=== PATIENT | female | born 1975 | race Caucasian/White ===

== ENCOUNTER → 2020-06-14 08:51 | Outpatient (BNVA) | payer OTHER, SELFPAY | PROVIDERS: PCP Student in an Organized Health Care Education/Training Program; Visit Provider Physician Assistant | DX: Z76.89 Persons encountering health services in other specified circumstances (principal) ==

== ENCOUNTER 2020-06-15 08:06 | Outpatient (REF) | payer OTHER, MEDICAID, SELFPAY ==
--- NOTE | 2020-06-15 | CT_ITS ---
EXAMINATION: CT CHEST WITHOUT CONTRAST CLINICAL INFORMATION: Follow-up pulmonary nodule COMPARISON: Previous chest CT scan November 2019 TECHNIQUE: Multidetector volumetric CT imaging of the chest was done. Axial MIP volume rendering provided. Sagittal and coronal reformatted images were obtained. This CT examination was performed using dose optimization techniques as appropriate, variously including the following: *Automated exposure control *Adjustment of mA and/or kV according to patient size (this includes techniques or standardized protocols for targeted exams where dose is matched to indication/reason for exam; i.e. extremities or head) *Use of iterative reconstruction technique DLP: 181 mGy-cm FINDINGS: LUNGS: There is a 3 mm right middle lobe nodule axial image 323 series 7 that is stable. The lungs are otherwise clear. There is an azygos lobe. MEDIASTINUM: The mediastinum is normal. PLEURA: There is no pleural effusion. No pleural mass or thickening. AXILLA: No lymphadenopathy. UPPER ABDOMEN: There is a small peripheral calcification in the lateral segment of the left lobe of the liver that is stable. Images through the upper abdomen are otherwise unremarkable. OSSEOUS STRUCTURES: Unremarkable. IMPRESSION: Stable 3 mm right middle lobe nodule.
== END 2020-06-15 08:07 | disposition home or self-care (01) ==
LOC: HO.CT 08:06
PROVIDERS: PCP Student in an Organized Health Care Education/Training Program; Visit Provider Internal Medicine Pulmonary Disease
DX: R91.1 Solitary pulmonary nodule (principal)
CPT/HCPCS: 71250

== ENCOUNTER 2020-06-29 09:58 | Outpatient (REF) | payer OTHER, SELFPAY ==
--- NOTE | 2020-06-29 10:01 | XR_ITS ---
EXAMINATION: XR ANKLE, RIGHT CLINICAL INFORMATION: Pain right ankle and joints of right foot. COMPARISON: None. TECHNIQUE: AP, lateral, and mortise views of the right ankle. FINDINGS: There is no fracture or dislocation. Bony mineralization is normal. The ankle joint shows no narrowing or erosive change. The talar dome shows no osteochondral lesion. The retrocalcaneal recess is preserved. No significant calcaneal spurring. There is small spur dorsum talonavicular region and distal anterior tibia, similar to prior studies. XR/XR ankle RT min 3V IMPRESSION: 1. Mild dorsal spurring talonavicular region, similar to prior study 06/01/2020. 2. Unremarkable ankle joint. No narrowing or erosive change.
== END 2020-06-29 09:59 | disposition home or self-care (01) ==
LOC: HO.XRAY 09:58
PROVIDERS: PCP Student in an Organized Health Care Education/Training Program; Referring Provider Student in an Organized Health Care Education/Training Program; Visit Provider Physician Assistant
DX: S90.01XA Contusion of right ankle, initial encounter (principal); V89.2XXA Person injured in unspecified motor-vehicle accident, traffic, initial encounter; Y93.9 Activity, unspecified; Y92.410 Unspecified street and highway as the place of occurrence of the external cause; Y99.8 Other external cause status; Z91.040 Latex allergy status
CPT/HCPCS: 73610; 99212

== ENCOUNTER → 2020-07-07 09:20 | Outpatient (BNVA) | payer OTHER, SELFPAY | PROVIDERS: PCP Student in an Organized Health Care Education/Training Program; Visit Provider Physician Assistant Medical | DX: M54.2 Cervicalgia (principal); M25.571 Pain in right ankle and joints of right foot; R51.9 Headache, unspecified | CPT/HCPCS: 99214 ==

== ENCOUNTER → 2020-07-12 14:28 | Outpatient (BNVA) | payer MEDICAID, SELFPAY | PROVIDERS: PCP Student in an Organized Health Care Education/Training Program; Referring Provider Student in an Organized Health Care Education/Training Program; Visit Provider Nurse Practitioner | DX: K21.9 Gastro-esophageal reflux disease without esophagitis (principal); R13.12 Dysphagia, oropharyngeal phase; K58.2 Mixed irritable bowel syndrome; K64.9 Unspecified hemorrhoids; Z87.891 Personal history of nicotine dependence; Z91.040 Latex allergy status; Z79.899 Other long term (current) drug therapy | CPT/HCPCS: 99212 ==

== ENCOUNTER → 2020-07-27 09:26 | Outpatient (BNVA) | payer OTHER, SELFPAY | PROVIDERS: PCP Student in an Organized Health Care Education/Training Program; Visit Provider Physician Assistant Medical | DX: S16.1XXD Strain of muscle, fascia and tendon at neck level, subsequent encounter (principal); V89.2XXD Person injured in unspecified motor-vehicle accident, traffic, subsequent encounter; R51.9 Headache, unspecified | CPT/HCPCS: 99213 ==

== ENCOUNTER 2020-08-23 09:15 | Outpatient (REF) | payer MEDICAID, SELFPAY | END 2020-08-23 09:16 | disposition home or self-care (01) | LOC: HO.LAB 09:15 | PROVIDERS: PCP Student in an Organized Health Care Education/Training Program; Visit Provider Internal Medicine | DX: Z20.828 Contact with and (suspected) exposure to other viral communicable diseases (principal) | CPT/HCPCS: C9803; U0003 ==

== ENCOUNTER → 2020-09-07 10:57 | Outpatient (BNVA) | payer OTHER, SELFPAY | PROVIDERS: PCP Student in an Organized Health Care Education/Training Program; Visit Provider Physician Assistant Medical | DX: S16.1XXD Strain of muscle, fascia and tendon at neck level, subsequent encounter (principal); S46.819D Strain of other muscles, fascia and tendons at shoulder and upper arm level, unspecified arm, subsequent encounter; S93.401D Sprain of unspecified ligament of right ankle, subsequent encounter; V89.2XXD Person injured in unspecified motor-vehicle accident, traffic, subsequent encounter; F07.81 Postconcussional syndrome | CPT/HCPCS: 99213 ==

== ENCOUNTER → 2020-10-06 08:59 | Outpatient (BNVA) | payer OTHER, SELFPAY | PROVIDERS: PCP Student in an Organized Health Care Education/Training Program; Visit Provider Physician Assistant Medical | DX: F07.81 Postconcussional syndrome (principal); G43.909 Migraine, unspecified, not intractable, without status migrainosus; S99.911S Unspecified injury of right ankle, sequela; S16.1XXS Strain of muscle, fascia and tendon at neck level, sequela; V89.2XXS Person injured in unspecified motor-vehicle accident, traffic, sequela | CPT/HCPCS: 99214 ==

== ENCOUNTER 2020-10-19 08:00 | Outpatient (RCR) | payer MEDICAID, SELFPAY ==
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
--- NOTE | 2020-11-20 13:52 | MHC.PT.DC ---
[facility] [place] Office [place] Office [place] Office [address] Ankita Francois [address] [phone] F: [phone] F: [phone] F: [phone] F: [phone] Physical Therapy Discharge Report Diagnosis: cervical strain Date of Surgery: None Date of Evaluation: 09/13/20 Date of Discharge: 11/06/20 Treatments to Date: 7 Cancellations to Date: No Shows to Date: Discharge Status: Patient Elected to Stop Discharge Summary: She had to stop PT due to fracture ankle. Was making progress before fracture. Electronically signed by: Efraín Calvin PT Please sign and return to therapist. Thank you for your referral.
== END 2020-11-20 13:57 | disposition home or self-care (01) ==
LOC: HO.PTCHIC 08:00
PROVIDERS: PCP Student in an Organized Health Care Education/Training Program; Visit Provider Internal Medicine
DX: S16.1XXD Strain of muscle, fascia and tendon at neck level, subsequent encounter (principal)
CPT/HCPCS: 97014; 97110; 97140; 97162

== ENCOUNTER → 2020-10-19 13:22 | Outpatient (BNVA) | payer OTHER, SELFPAY | PROVIDERS: PCP Student in an Organized Health Care Education/Training Program; Visit Provider Physician Assistant Medical | DX: S16.1XXD Strain of muscle, fascia and tendon at neck level, subsequent encounter (principal); X58.XXXD Exposure to other specified factors, subsequent encounter; R60.9 Edema, unspecified; F07.81 Postconcussional syndrome | CPT/HCPCS: 99213 ==

== ENCOUNTER 2020-10-23 23:09 | Emergency (ER) | payer MEDICAID, SELFPAY ==
--- NOTE | ~2020-10-23 | XR_ITS ---
EXAMINATION: RIGHT KNEE, RIGHT ANKLE CLINICAL INFORMATION: Pain and deformity ankle with swelling and ecchymosis knee COMPARISON: Right ankle 06/29/2020 TECHNIQUE: 4 views right knee, 3 views right ankle FINDINGS: Knee: No bone joint or soft tissue abnormality is seen. Ankle: There is a minimally displaced spiral fracture involving the lateral malleolus with marked associated soft tissue swelling. No definite other fractures are seen. XR/XR ankle RT min 3V IMPRESSION: Lateral malleolus fracture.
--- NOTE | ~2020-10-23 | XR_ITS ---
EXAMINATION: RIGHT KNEE, RIGHT ANKLE CLINICAL INFORMATION: Pain and deformity ankle with swelling and ecchymosis knee COMPARISON: Right ankle 06/29/2020 TECHNIQUE: 4 views right knee, 3 views right ankle FINDINGS: Knee: No bone joint or soft tissue abnormality is seen. Ankle: There is a minimally displaced spiral fracture involving the lateral malleolus with marked associated soft tissue swelling. No definite other fractures are seen. XR/XR knee RT 3V IMPRESSION: Lateral malleolus fracture.
[2020-10-23 23:18] VITALS: BP 132/91; BP 156/88; PULSE 100; PULSE 89; RESP 16; TEMP 36.8; O2SAT 100; O2SAT 98; BMI 39.9
[2020-10-24] MEDS: Acetaminophen 325 MG TABLET 975 MG PO (00:57)
[2020-10-24] MEDS: Ketorolac Tromethamine 15 MG/ML VIAL IM (00:58)
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
== END 2020-10-24 01:38 | disposition home or self-care (01) ==
PROVIDERS: Emergency Provider Student in an Organized Health Care Education/Training Program; PCP Student in an Organized Health Care Education/Training Program
DX: S82.61XA Displaced fracture of lateral malleolus of right fibula, initial encounter for closed fracture (principal); W00.0XXA Fall on same level due to ice and snow, initial encounter; Y93.89 Activity, other specified; Y92.014 Private driveway to single-family (private) house as the place of occurrence of the external cause; Y99.9 Unspecified external cause status
CPT/HCPCS: 73562; 73610; 96372; 99283; 99284; J1885

== ENCOUNTER → 2020-10-25 10:31 | Outpatient (BNVA) | payer MEDICAID, SELFPAY | PROVIDERS: Visit Provider Physician Assistant | DX: S82.63XA Displaced fracture of lateral malleolus of unspecified fibula, initial encounter for closed fracture (principal) | CPT/HCPCS: 99212 ==

== ENCOUNTER → 2020-11-02 15:19 | Outpatient (BNVA) | payer OTHER, SELFPAY | PROVIDERS: Visit Provider Physician Assistant Medical | DX: F07.81 Postconcussional syndrome (principal); G43.909 Migraine, unspecified, not intractable, without status migrainosus; S16.1XXD Strain of muscle, fascia and tendon at neck level, subsequent encounter; S82.891D Other fracture of right lower leg, subsequent encounter for closed fracture with routine healing; V89.2XXD Person injured in unspecified motor-vehicle accident, traffic, subsequent encounter | CPT/HCPCS: 99213 ==

== ENCOUNTER 2020-11-22 08:38 | Outpatient (REF) | payer MEDICAID, SELFPAY ==
--- NOTE | ~2020-11-22 | XR_ITS ---
EXAMINATION: XR ANKLE, RIGHT CLINICAL INFORMATION: Lateral malleolar fracture COMPARISON: Previous x-ray October 2020 TECHNIQUE: AP, lateral, and mortise views of the right ankle. FINDINGS: The oblique fracture of the lateral malleolus appears unchanged. Fracture line is still seen. No other fracture is seen. The ankle mortise is normal. Soft tissues are normal. There are small calcaneal spurs. XR/XR ankle RT min 3V IMPRESSION: No change in left lateral malleolar fracture from 10/24/2020.
== END 2020-11-22 08:39 | disposition home or self-care (01) ==
LOC: HO.HOSX 08:38
PROVIDERS: Visit Provider Physician Assistant
DX: S82.61XD Displaced fracture of lateral malleolus of right fibula, subsequent encounter for closed fracture with routine healing (principal)
CPT/HCPCS: 73610; 99212

== ENCOUNTER → 2020-12-08 13:52 | Outpatient (BNVA) | payer OTHER, SELFPAY | PROVIDERS: PCP Student in an Organized Health Care Education/Training Program; Visit Provider Physician Assistant Medical | DX: F07.81 Postconcussional syndrome (principal); G43.809 Other migraine, not intractable, without status migrainosus; S16.1XXD Strain of muscle, fascia and tendon at neck level, subsequent encounter; V89.2XXD Person injured in unspecified motor-vehicle accident, traffic, subsequent encounter; S99.911D Unspecified injury of right ankle, subsequent encounter; X58.XXXD Exposure to other specified factors, subsequent encounter | CPT/HCPCS: 99213 ==

== ENCOUNTER → 2020-12-18 13:40 | Outpatient (BNVA) | payer MEDICAID, SELFPAY | PROVIDERS: PCP Student in an Organized Health Care Education/Training Program; Visit Provider Anesthesiology | DX: M47.812 Spondylosis without myelopathy or radiculopathy, cervical region (principal) | CPT/HCPCS: 99202 ==

== ENCOUNTER → 2020-12-20 16:16 | Outpatient (BNVA) | payer OTHER, SELFPAY | PROVIDERS: PCP Student in an Organized Health Care Education/Training Program; Visit Provider Physician Assistant Medical | DX: M47.812 Spondylosis without myelopathy or radiculopathy, cervical region (principal) | CPT/HCPCS: 99213 ==

== ENCOUNTER → 2021-01-04 14:48 | Outpatient (BNVA) | payer OTHER, SELFPAY | PROVIDERS: PCP Student in an Organized Health Care Education/Training Program; Visit Provider Physician Assistant Medical | DX: F07.81 Postconcussional syndrome (principal); H81.10 Benign paroxysmal vertigo, unspecified ear; G43.909 Migraine, unspecified, not intractable, without status migrainosus | CPT/HCPCS: 99213 ==

== ENCOUNTER → 2021-01-08 08:47 | Outpatient (BNVA) | payer OTHER, SELFPAY | PROVIDERS: PCP Student in an Organized Health Care Education/Training Program; Visit Provider Anesthesiology ==

== ENCOUNTER → 2021-01-11 13:49 | Outpatient (BNVA) | payer OTHER, SELFPAY | PROVIDERS: PCP Student in an Organized Health Care Education/Training Program; Visit Provider Nurse Practitioner ==

== ENCOUNTER → 2021-01-17 14:00 | Outpatient (BNVA) | payer MEDICAID, SELFPAY | PROVIDERS: PCP Student in an Organized Health Care Education/Training Program; Visit Provider Physician Assistant Medical | DX: F07.81 Postconcussional syndrome (principal); H81.10 Benign paroxysmal vertigo, unspecified ear; G43.809 Other migraine, not intractable, without status migrainosus; M50.30 Other cervical disc degeneration, unspecified cervical region | CPT/HCPCS: 99213 ==

== ENCOUNTER → 2021-01-19 14:05 | Outpatient (BNVA) | payer MEDICAID, SELFPAY | PROVIDERS: PCP Student in an Organized Health Care Education/Training Program; Visit Provider Physician Assistant | DX: M25.571 Pain in right ankle and joints of right foot (principal) | CPT/HCPCS: 99212 ==

== ENCOUNTER 2021-01-30 06:28 | Outpatient (REF) | payer OTHER, SELFPAY ==
--- NOTE | ~2021-01-30 | FL_ITS ---
EXAMINATION: XR FLUOROSCOPY WITH IMAGES CLINICAL INFORMATION: Spondylosis without myelopathy or radiculopathy COMPARISON: None. TECHNIQUE: Fluoroscopy performed by Camila Hari NP. Fluoroscopy time: 0.5 minutes DAP: 3.3 Gycm2 FINDINGS: Needle placement and contrast injection adjacent to the bilateral lateral cervical spine at C3-C4, C4-C5 and C5-C6. FL/FL guidance in treatment room IMPRESSION: Fluoroscopy guidance for cervical spine injection
== END 2021-01-30 06:29 | disposition home or self-care (01) ==
LOC: HO.RADIR 06:28
PROVIDERS: Visit Provider Anesthesiology
DX: M47.812 Spondylosis without myelopathy or radiculopathy, cervical region (principal)
CPT/HCPCS: 64490; 64491; J1100; J3300; Q9967

== ENCOUNTER 2021-02-01 10:00 | Outpatient (RCR) | payer MEDICAID, SELFPAY ==
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
--- NOTE | 2021-02-01 10:51 | MHC.PT.DC ---
[facility] [place] Office [place] Office [address] Ankita Francois 140 [facility] [phone] F: [phone] F: [phone] F: [phone] F: [phone] Physical Therapy Discharge Report Diagnosis: R fibula fracture Date of Surgery: n/a Date of Evaluation: 11/29/20 Date of Discharge: 02/01/21 Treatments to Date: 19 Cancellations to Date: 0 No Shows to Date: 0 Discharge Status: Improved Function Independent with HEP Discharge Summary: Reports everything feels better such as walking, standing, and stairs. She still gets pain but she can move better. Noted improved gait pattern with R forefoot valgus. Ankle AROM WFL with mildly limited dorsiflexion and strength WNL. LEFS 46/80. Reviewed HEP and pt appropriate for d/c. Electronically signed by: Marcella Mcghee PT Please sign and return to therapist. Thank you for your referral.
== END 2021-02-01 10:52 | disposition home or self-care (01) ==
LOC: HO.PTCHIC 10:00
PROVIDERS: PCP Student in an Organized Health Care Education/Training Program; Visit Provider Physician Assistant
DX: S82.63XA Displaced fracture of lateral malleolus of unspecified fibula, initial encounter for closed fracture (principal)
CPT/HCPCS: 97014; 97110; 97112; 97140; 97161; 97530

== ENCOUNTER → 2021-02-22 15:05 | Outpatient (BNVA) | payer OTHER, SELFPAY | PROVIDERS: PCP Student in an Organized Health Care Education/Training Program; Visit Provider Physician Assistant Medical | DX: F07.81 Postconcussional syndrome (principal); H81.10 Benign paroxysmal vertigo, unspecified ear; S16.1XXD Strain of muscle, fascia and tendon at neck level, subsequent encounter; X58.XXXD Exposure to other specified factors, subsequent encounter | CPT/HCPCS: 99213 ==

== ENCOUNTER 2021-03-01 11:42 | Outpatient (REF) | payer MEDICAID, SELFPAY ==
[2021-03-01 14:39] LABS: Anion Gap 13 (12-20); Blood Urea Nitrogen 22 mg/dL (9-16); Calcium 9.9 mg/dL (8.4-10.2); Carbon Dioxide 29 mmol/L (22-29); Chloride 101 mmol/L (96-108); Cholesterol 203 mg/dL; Estimated Glomerular Filt Rate > 60; Glucose Random 69 mg/dL (60-115); HDL Cholesterol 72 mg/dL; LDL Cholesterol Calculated 117 mg/dl; Potassium 4.1 mmol/L (3.3-5.1); Sodium 139 mmol/L (135-145); Triglycerides 73 mg/dL
== END 2021-03-01 11:43 | disposition home or self-care (01) ==
LOC: HO.LAB 11:42
PROVIDERS: PCP Student in an Organized Health Care Education/Training Program; Referring Provider Student in an Organized Health Care Education/Training Program; Visit Provider Internal Medicine
DX: I10 Essential (primary) hypertension (principal)
CPT/HCPCS: 36415; 80048; 80061

== ENCOUNTER → 2021-03-07 10:52 | Outpatient (BNVA) | payer MEDICAID, SELFPAY | PROVIDERS: PCP Student in an Organized Health Care Education/Training Program; Visit Provider Anesthesiology ==

== ENCOUNTER → 2021-03-22 15:05 | Outpatient (BNVA) | payer OTHER, SELFPAY | PROVIDERS: PCP Student in an Organized Health Care Education/Training Program; Visit Provider Physician Assistant Medical | DX: S06.9X0A Unspecified intracranial injury without loss of consciousness, initial encounter (principal); V89.2XXA Person injured in unspecified motor-vehicle accident, traffic, initial encounter; F07.81 Postconcussional syndrome; M54.2 Cervicalgia; H81.10 Benign paroxysmal vertigo, unspecified ear | CPT/HCPCS: 99213 ==

== ENCOUNTER 2021-04-12 14:00 | Outpatient (RCR) | payer MEDICAID, SELFPAY ==
[2021-02-20 13:12] VITALS: BP 130/76
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
--- NOTE | 2021-05-04 12:54 | MHC.PT.DC ---
[facility] [place] Office [place] Office [address] Ankita Francois 140 [facility] [phone] F: [phone] F: [phone] F: [phone] F: [phone] Physical Therapy Discharge Report Diagnosis: cervical strain Date of Surgery: Date of Evaluation: 02/20/21 Date of Discharge: 05/04/21 Treatments to Date: 7 Cancellations to Date: 0 No Shows to Date: 0 Discharge Status: Improved Function Independent with HEP Discharge Summary: Dc to I HEP. Reports improved motion and function. Electronically signed by: Marcella Mcghee PT Please sign and return to therapist. Thank you for your referral.
== END 2021-05-04 12:54 | disposition home or self-care (01) ==
LOC: HO.PTCHIC 14:00
PROVIDERS: PCP Student in an Organized Health Care Education/Training Program; Visit Provider Internal Medicine
DX: S16.1XXA Strain of muscle, fascia and tendon at neck level, initial encounter (principal)
CPT/HCPCS: 97110; 97112; 97140; 97162

== ENCOUNTER → 2021-04-26 09:24 | Outpatient (BNVA) | payer OTHER, SELFPAY | PROVIDERS: PCP Student in an Organized Health Care Education/Training Program; Visit Provider Physician Assistant Medical | DX: S06.9X0D Unspecified intracranial injury without loss of consciousness, subsequent encounter (principal); V89.2XXD Person injured in unspecified motor-vehicle accident, traffic, subsequent encounter; G43.909 Migraine, unspecified, not intractable, without status migrainosus; F07.81 Postconcussional syndrome; H81.10 Benign paroxysmal vertigo, unspecified ear; M54.2 Cervicalgia | CPT/HCPCS: 99213 ==

== ENCOUNTER 2021-05-17 14:00 | Outpatient (RCR) | payer OTHER, MEDICAID, SELFPAY ==
[2021-03-19 12:52] VITALS: BP 150/98; PULSE 77; O2SAT 99
--- NOTE | 2021-03-19 15:21 | MHC.PT.EP ---
[facility] [place] Office [place] Office [address] Ani Francois [address] [phone] F: [phone] F: [phone] F: [phone] F: [phone] Physical Therapy Plan of Care Date of Evaluation: Date of Surgery: Diagnosis: This is a 45 yo female presenting to skilled PT with a script for vertigo Assessment: Examination shows normal oculomotor tests except for vertical saccades, (-) VBI B, decreased cervical AROM. She was (-) for BPPV with hamida-hallpike and roll tests. Patient scored normally on static EO and EC balance tests and only had dizziness with head turns in ambulation during DGI. Plan is to trial therapy for vestibular hypofunction and post concussive symptoms. She would benefit from PT 2x/wk for 4wks to address impairments, implement HEP and optimize functional mobility. Frequency and Duration: The patient will be seen 2x/wk for 4wks Short Term Goals: Button Inspector Goals: I in HEP Report no falls for 3 weeks due to dizziness Improve symptoms by at least 75% Demo good scores on all balance tests No nystagmus or dizziness with all testing positions Treatment Plan: Modalities to reduce pain, spasms and effusion. Manual therapy to restore motion and function. Therapeutic exercise to improve strength and flexibility. Neuromuscular re-education for posture and balance. Therapeutic activities to return to functional activities of daily living. Electronically signed by: Sophia Ferguson PT Please sign and return to therapist. Thank you for your referral.
--- NOTE | 2021-05-17 15:48 | MHC.PT.DC ---
[facility] [place] Office [place] Office [address] Ankita Francois [address] [phone] F: [phone] F: [phone] F: [phone] F: [phone] Physical Therapy Discharge Report Diagnosis: This is a 45 yo female presenting to skilled PT with a script for vertigo Date of Surgery: Date of Evaluation: 03/19/21 Date of Discharge: 05/17/21 Treatments to Date: 8 Cancellations to Date: 0 No Shows to Date: 0 Discharge Status: Improved Function Independent with HEP Discharge Summary: 05/17: Patients symptoms continue to come and go. She is negative in all canals for vertigo. She demos good balance with tests demonstrating impaired balance during DGI with head turns. She has been educated on HEP for memory/concussion, cervical ther-ex, HARDIN symptoms and vestibular impairments. At this time she has plateaued in improvements with vestibular and concussion tx. Refer to for further assessment. Electronically signed by: Sophia Ferguson PT Please sign and return to therapist. Thank you for your referral.
== END 2021-05-17 15:50 | disposition home or self-care (01) ==
LOC: HO.PTCHIC 14:00
PROVIDERS: Visit Provider Internal Medicine
DX: R42 Dizziness and giddiness (principal); S06.0X9D Concussion with loss of consciousness of unspecified duration, subsequent encounter; V89.2XXD Person injured in unspecified motor-vehicle accident, traffic, subsequent encounter
CPT/HCPCS: 95992; 97110; 97112; 97161; 97530

== ENCOUNTER → 2021-05-18 11:38 | Outpatient (BNVA) | payer OTHER, SELFPAY | PROVIDERS: PCP Student in an Organized Health Care Education/Training Program; Visit Provider Physician Assistant Medical | DX: F07.81 Postconcussional syndrome (principal); G43.909 Migraine, unspecified, not intractable, without status migrainosus; H81.10 Benign paroxysmal vertigo, unspecified ear; M54.2 Cervicalgia | CPT/HCPCS: 99213 ==

== ENCOUNTER → 2021-06-12 09:17 | Outpatient (BNVA) | payer OTHER, SELFPAY | PROVIDERS: PCP Student in an Organized Health Care Education/Training Program; Visit Provider Physician Assistant Medical | DX: F07.81 Postconcussional syndrome (principal); G43.909 Migraine, unspecified, not intractable, without status migrainosus; R42 Dizziness and giddiness; M54.2 Cervicalgia | CPT/HCPCS: 99213 ==

== ENCOUNTER 2021-06-27 12:48 | Outpatient (REF) | payer MEDICAID, SELFPAY ==
[2021-06-28 08:41] LABS: Lyme Abs Screen <0.90 index
== END 2021-06-27 12:49 | disposition home or self-care (01) ==
LOC: HO.LAB 12:48
PROVIDERS: Visit Provider Psychiatry & Neurology Neurology
DX: G43.909 Migraine, unspecified, not intractable, without status migrainosus (principal)
CPT/HCPCS: 36415; 86617; 86618

== ENCOUNTER → 2021-07-03 09:06 | Outpatient (BNVA) | payer OTHER, SELFPAY | PROVIDERS: PCP Student in an Organized Health Care Education/Training Program; Visit Provider Physician Assistant Medical | DX: F07.81 Postconcussional syndrome (principal); G43.909 Migraine, unspecified, not intractable, without status migrainosus; R42 Dizziness and giddiness; M54.2 Cervicalgia | CPT/HCPCS: 99213 ==

== ENCOUNTER → 2021-07-16 15:44 | Outpatient (BNVA) | payer OTHER, SELFPAY | PROVIDERS: PCP Student in an Organized Health Care Education/Training Program; Visit Provider Nurse Practitioner ==

== ENCOUNTER → 2021-08-07 14:58 | Outpatient (BNVA) | payer OTHER, SELFPAY | PROVIDERS: PCP Student in an Organized Health Care Education/Training Program; Visit Provider Physician Assistant Medical | DX: F07.81 Postconcussional syndrome (principal) | CPT/HCPCS: 99213 ==

== ENCOUNTER → 2021-08-23 14:47 | Outpatient (BNVA) | payer OTHER, SELFPAY | PROVIDERS: PCP Student in an Organized Health Care Education/Training Program; Visit Provider Physician Assistant Medical | DX: F07.81 Postconcussional syndrome (principal) | CPT/HCPCS: 72072 ==

== ENCOUNTER → 2021-09-04 15:27 | Outpatient (BNVA) | payer OTHER, SELFPAY | PROVIDERS: PCP Student in an Organized Health Care Education/Training Program; Visit Provider Physician Assistant Medical | DX: F07.81 Postconcussional syndrome (principal) | CPT/HCPCS: 99213 ==

== ENCOUNTER → 2021-10-03 15:44 | Outpatient (BNVA) | payer OTHER, SELFPAY | PROVIDERS: PCP Student in an Organized Health Care Education/Training Program; Visit Provider Physician Assistant Medical | DX: M54.2 Cervicalgia (principal) | CPT/HCPCS: 99213 ==

== ENCOUNTER 2021-10-31 14:29 | Outpatient (REF) | payer MEDICAID, SELFPAY ==
[2021-10-31 16:21] LABS: Free T4 (Free Thyroxine) 0.99 ng/dL (0.71-1.85); Thyroid Stimulating Hormone 0.64 uIU/mL (0.32-4.0)
[2021-11-01 06:15] LABS: Follicle Stimulating Hormone 52.5 mIU/mL
[2021-11-08 23:01] LABS: Estradiol Free 0.19 pg/mL; Estradiol, Ultrasensitive 10 pg/mL
== END 2021-10-31 14:30 | disposition home or self-care (01) ==
LOC: HO.LAB 14:29
PROVIDERS: PCP Student in an Organized Health Care Education/Training Program; Visit Provider Obstetrics & Gynecology
DX: N95.1 Menopausal and female climacteric states (principal)
CPT/HCPCS: 36415; 82670; 82681; 83001; 84439; 84443

== ENCOUNTER → 2021-12-03 15:13 | Outpatient (BNVA) | payer OTHER, SELFPAY | PROVIDERS: PCP Student in an Organized Health Care Education/Training Program; Visit Provider Physician Assistant Medical | DX: M50.30 Other cervical disc degeneration, unspecified cervical region (principal); M48.02 Spinal stenosis, cervical region; G43.909 Migraine, unspecified, not intractable, without status migrainosus; R42 Dizziness and giddiness | CPT/HCPCS: 99214 ==

== ENCOUNTER → 2022-01-01 13:18 | Outpatient (BNVA) | payer OTHER, SELFPAY | PROVIDERS: PCP Student in an Organized Health Care Education/Training Program; Visit Provider Physician Assistant Medical | DX: M50.122 Cervical disc disorder at C5-C6 level with radiculopathy (principal); M99.51 Intervertebral disc stenosis of neural canal of cervical region; M51.14 Intervertebral disc disorders with radiculopathy, thoracic region; M50.322 Other cervical disc degeneration at C5-C6 level; G43.909 Migraine, unspecified, not intractable, without status migrainosus; R42 Dizziness and giddiness | CPT/HCPCS: 99213 ==

== ENCOUNTER → 2022-01-02 10:16 | Outpatient (BNVA) | payer MEDICAID, SELFPAY | PROVIDERS: PCP Student in an Organized Health Care Education/Training Program; Visit Provider Internal Medicine Pulmonary Disease | DX: J45.909 Unspecified asthma, uncomplicated (principal); R91.8 Other nonspecific abnormal finding of lung field | CPT/HCPCS: 99212 ==

== ENCOUNTER 2022-01-10 07:39 | Outpatient (REF) | payer MEDICAID, SELFPAY ==
--- NOTE | ~2022-01-10 | CT_ITS ---
EXAMINATION: CT chest wo con. CLINICAL INFORMATION: Reason for Exam R91.8 - Other nonspecific abnormal finding of lung field COMPARISON: Prior CT scan June 15, 2022 TECHNIQUE: Noncontrast CT scan low-dose. This CT examination was performed using dose optimization techniques as appropriate, variously including the following: *Automated exposure control *Adjustment of mA and/or kV according to patient size (this includes techniques or standardized protocols for targeted exams where dose is matched to indication/reason for exam; i.e. extremities or head) *Use of iterative reconstruction technique CONTRAST: Noncontrasted study. DLP: 198 mGy-cm FINDINGS: CHIEF PETROLEUM ENGINEER: LINES/TUBES: Marketing Recruiter reviewed, no lines. LUNGS: Lung parenchyma: No evidence of significant interstitial disease. Lung nodules/masses: No suspicious lung mass, no spiculated suspicious lung nodules. There are few scattered tiny subcentimeter lung densities nonspecific measuring to 3 mm or less. AIRWAYS: Airways are clear, no intratracheal mass or lesion. PLEURA: No pleural effusion or pneumothorax. MEDIASTINUM AND RUTH: No mediastinal, hilar or axillary lymphadenopathy. There is no CT evidence of mediastinal mass or hernia found. VESSELS: HEART AND PERICARDIUM: Thoracic aorta is normal in size. Heart is normal in size. No pericardial effusion. Pulmonary arteries are normal in size. LOWER NECK, AXILLA: The visualized thyroid gland is unremarkable. No axillary mass or adenopathy. VISUALIZED ABDOMEN: Unremarkable CHEST WALL AND BONES: No chest wall mass. The visualized bony thorax is within normal limits. CT/CT chest wo con IMPRESSION: 1. No lung mass or suspicious spiculated nodules, no CT evidence of lung neoplasm, there are few scattered tiny nonspecific lung densities measuring up to 3 mm or less. 2. No lymphadenopathy.
== END 2022-01-10 07:40 | disposition home or self-care (01) ==
LOC: HO.CT 07:39
PROVIDERS: PCP Student in an Organized Health Care Education/Training Program; Visit Provider Internal Medicine Pulmonary Disease
DX: R91.8 Other nonspecific abnormal finding of lung field (principal)
CPT/HCPCS: 71250

== ENCOUNTER → 2022-01-22 15:01 | Outpatient (BNVA) | payer OTHER, SELFPAY | PROVIDERS: PCP Student in an Organized Health Care Education/Training Program; Visit Provider Physician Assistant Medical | DX: M50.122 Cervical disc disorder at C5-C6 level with radiculopathy (principal); M99.51 Intervertebral disc stenosis of neural canal of cervical region | CPT/HCPCS: 99214 ==

== ENCOUNTER → 2022-01-29 14:13 | Outpatient (BNVA) | payer MEDICAID, SELFPAY | PROVIDERS: PCP Student in an Organized Health Care Education/Training Program; Visit Provider Nurse Practitioner | DX: K21.9 Gastro-esophageal reflux disease without esophagitis (principal); R13.12 Dysphagia, oropharyngeal phase; K58.2 Mixed irritable bowel syndrome | CPT/HCPCS: 99212 ==

== ENCOUNTER 2022-03-12 09:06 | Outpatient (REF) | payer MEDICAID, SELFPAY ==
--- NOTE | ~2022-03-12 | FL_ITS ---
EXAMINATION: FL BARIUM SWALLOW CLINICAL INFORMATION: Dysphagia COMPARISON: None TECHNIQUE: Barium swallow examination is performed using fluoroscopic evaluation in addition to multiple fluoroscopic spot views. The patient is imaged both upright and prone and using both thick and thin sulfate along with effervescent granules. Patient was also administered barium tablet. Fluoroscopy time: 0.7 minutes DAP: 7.5 Gycm2 Images: 38 FINDINGS: The swallowing mechanism is normal. No aspiration or penetration is seen. There is a small sliding-type hiatal hernia. There is no gastroesophageal reflux. No mass or stricture or evidence of esophagitis is seen. Barium tablet passed into the stomach. FL/FL barium swallow IMPRESSION: Small sliding-type hiatal hernia.
== END 2022-03-12 09:07 | disposition home or self-care (01) ==
LOC: HO.XRAY 09:06
PROVIDERS: PCP Student in an Organized Health Care Education/Training Program; Visit Provider Internal Medicine
DX: R13.10 Dysphagia, unspecified (principal)
CPT/HCPCS: 74220

== ENCOUNTER → 2022-03-13 14:30 | Outpatient (BNVA) | payer OTHER, SELFPAY | PROVIDERS: PCP Student in an Organized Health Care Education/Training Program; Visit Provider Physician Assistant Medical | DX: M50.322 Other cervical disc degeneration at C5-C6 level (principal) | CPT/HCPCS: 99214 ==

== ENCOUNTER → 2022-03-26 14:51 | Outpatient (BNVA) | payer MEDICAID, SELFPAY | PROVIDERS: PCP Student in an Organized Health Care Education/Training Program; Visit Provider Nurse Practitioner | DX: K21.9 Gastro-esophageal reflux disease without esophagitis (principal); K58.2 Mixed irritable bowel syndrome; R13.12 Dysphagia, oropharyngeal phase; N81.6 Rectocele | CPT/HCPCS: 99212 ==

== ENCOUNTER 2022-04-08 16:40 | Outpatient (RCR) | payer MEDICAID, SELFPAY ==
[2022-04-08 16:46] VITALS: BP 125/80; PULSE 72; O2SAT 98
== END 2022-05-10 10:43 | disposition home or self-care (01) ==
LOC: HO.PTCHIC 16:40
PROVIDERS: PCP Student in an Organized Health Care Education/Training Program; Visit Provider Student in an Organized Health Care Education/Training Program
DX: R42 Dizziness and giddiness (principal)
CPT/HCPCS: 97110; 97161; 97162

== ENCOUNTER → 2022-04-29 14:18 | Outpatient (BNVA) | payer OTHER, SELFPAY | PROVIDERS: PCP Student in an Organized Health Care Education/Training Program; Visit Provider Physician Assistant Medical | DX: M54.2 Cervicalgia (principal) | CPT/HCPCS: 99213 ==

== ENCOUNTER → 2022-07-01 14:57 | Outpatient (BNVA) | payer OTHER, SELFPAY | PROVIDERS: PCP Student in an Organized Health Care Education/Training Program; Visit Provider Physician Assistant Medical | DX: S13.4XXD Sprain of ligaments of cervical spine, subsequent encounter (principal); S29.012D Strain of muscle and tendon of back wall of thorax, subsequent encounter; V89.2XXD Person injured in unspecified motor-vehicle accident, traffic, subsequent encounter | CPT/HCPCS: 99213 ==

== ENCOUNTER → 2022-07-11 09:11 | Outpatient (BNVA) | payer MEDICAID, SELFPAY | PROVIDERS: PCP Student in an Organized Health Care Education/Training Program; Visit Provider Internal Medicine Pulmonary Disease | DX: J45.40 Moderate persistent asthma, uncomplicated (principal); R91.8 Other nonspecific abnormal finding of lung field | CPT/HCPCS: 99212 ==

== ENCOUNTER → 2022-08-12 14:33 | Outpatient (BNVA) | payer OTHER, SELFPAY | PROVIDERS: PCP Student in an Organized Health Care Education/Training Program; Visit Provider Physician Assistant Medical | DX: S16.1XXD Strain of muscle, fascia and tendon at neck level, subsequent encounter (principal); S29.012D Strain of muscle and tendon of back wall of thorax, subsequent encounter; V89.2XXD Person injured in unspecified motor-vehicle accident, traffic, subsequent encounter | CPT/HCPCS: 99213 ==

== ENCOUNTER → 2022-10-08 15:19 | Outpatient (BNVA) | payer MEDICAID, SELFPAY | PROVIDERS: PCP Student in an Organized Health Care Education/Training Program; Referring Provider Student in an Organized Health Care Education/Training Program; Visit Provider Nurse Practitioner | DX: K21.9 Gastro-esophageal reflux disease without esophagitis (principal); R13.12 Dysphagia, oropharyngeal phase; K58.2 Mixed irritable bowel syndrome; Z79.899 Other long term (current) drug therapy | CPT/HCPCS: 99212 ==

== ENCOUNTER 2023-04-01 15:18 | Outpatient (AMB) | payer OTHER, MEDICAID, SELFPAY ==
--- NOTE | 2023-04-01 15:21 | A.OFFVIS_ITS ---
Intake Vital Signs 04/01/23 15:22 Height 5 ft 4 in Weight 205 lb 7.533 oz BMI 35.3 BP 124/82 Blood Pressure Location Lt brachial Position Sitting Pulse 82 Intake Visit Reasons: 6 month follow up Intake Note: Pt presents to the office for a 6 month follow up. CC: Patient reports GERD well managed with medications. She states she always has constipation. Allergies latex [LATEX] Allergy (Mild, Verified 10/08/22 15:31) RASH Seasonal Allergies Allergy (Unknown, Verified 04/01/23 15:30) none HPI 6 month follow up HPI Details Assessment & Plan (1) Irritable bowel syndrome with both constipation and diarrhea: ?Code(s): K58.2 - Mixed irritable bowel syndrome ?Plan: She has been doing well on the dexilant and docusate. BUT she needs 90day refills and may need a PA renew. She stopped taking the? bentyl as she has been able to control her swallowing, but it worked well and we could reconsider this in the future. She continues on her CAlm? SUPPLEMENT and this helps her side pain, she thinks this is also r/t CIC.? ROV 6 mos (2) Oropharyngeal dysphagia: ?Comment: Resolved once we got good control the reflux so this was likely due to esophageal spasm from irritation at the GE junction. Then started again with a lack or ability to initiate the swallowing sequence of uncertain cause. ?Code(s): R13.12 - Dysphagia, oropharyngeal phase (3) GERD (gastroesophageal reflux disease): ?Code(s): K21.9 - Gastro-esophageal reflux disease without esophagitis ? ? ? Medications: Changed From dexlansoprazole (D exilant) 60 mg? PO DAILY 30 caps 6RF K21.9 - Gastro-eso phageal reflux dis ease without esoph agitis ? To dexlansoprazole (D exilant) 60 mg? PO DAILY 90 days 90 caps 2RF G K21.9 - Gastro-eso phageal reflux dis ease without esoph agitis ? From docusate sodium 100 mg? PO DAILY 3 0 caps 6RF K58.2 - Mixed irri table bowel syndro me ? To docusate sodium 100 mg? PO DAILY 9 0 days 90 caps 2RF K58.2 - Mixed irri table bowel syndro me ? Discontinued dicyclomine ?? Dis continued Reason:? Doctor's Order 20 mg? PO QID 30 d ays 120 tabs 1RF ? ? TODAY'S VISIT She is doing much better! She has lost 20 lbs and this has reduced her HB along with the Dexilant. She is working with a simulation software engineer and they did a carnivore diet and she finds that she can not tolerate bread r/t bloating. Her leg swelling and her migraines have also been better. She continues on her Calm supplement for her IBS and CIC and she also uses coalce. She has not had any rectal bleeding recently. ROV 6 mos. PFS Medical History Arthropathy of cervical facet joint Asthma Spondylosis of cervical spine without myelopathy Surgical History H/O: hysterectomy History of esophagogastroduodenoscopy (EGD) Hx of colonoscopy Family History Father Digestive disorder Cirrhosis of liver Mother Throat cancer Brother Digestive disorder Sister Digestive disorder Maternal Grandmother HTN (hypertension) Heart problem Social History (Updated 10/08/22 @ 15:31 by Mehnaz Fisher MA) Household Members: None Alcohol intake: never Patient Tobacco Use Status: Never used Tobacco Current occupational status: employed 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 Review of Systems Const Denies fatigue, Denies fever(s), Denies night sweats, Denies poor appetite and Reports weight loss (intentional dieting) ENT Reports Normal hearing present, Denies dental pain, Denies dysphagia, Denies hearing loss, Denies mouth pain, Denies odynophagia, Denies throat swelling, Denies tongue swelling and Reports other (Dentition adequate) Card Reports no additional complaints Resp Reports no additional complaints GI Denies abdominal pain, Denies melena, Denies bloating, Denies hematochezia, Reports constipation, Denies GI cramping, Denies dysphagia, Denies excessive flatus, Denies early satiety, Reports heartburn, Denies diarrhea, Denies nausea, Denies odynophagia, Denies vomiting and Denies hematemesis Skin/Breast Denies pruritus, Denies lesions, Denies rash and Denies jaundice Neuro Reports Normal hearing present and Denies Abnormal speech present Endo Denies fatigue Aller/Immun Denies throat swelling and Denies tongue swelling Physical Exam Vital Signs: Last Vital Signs Pulse 82 04/01/23 15:22 BP 124/82 04/01/23 15:22 BMI result Body Mass Index 35.3 Const General: cooperative, no acute distress, well developed and well groomed Nutritional Appearance: well nourished and obese Orientation/consciousness: oriented to person, oriented to place and oriented to time Limitations: No language barrier HEENT Head: Yes normocephalic and Yes atraumatic Eyes General: appearance normal, both eyes and all related structures Pupils: Equal, round and reactive pupils present Neck Neck: Yes normal visual inspection and Yes no lymphadenopathy Thyroid: Thyroid normal Resp Effort & Inspection: normal respiratory effort and able to speak in complete sentences Auscultation: clear to auscultation bilaterally Cardio Rate: regular rate Rhythm: regular rhythm Heart sounds: Normal, physiologic split S2 sound present Peripheral pulses: radial pulses present and posterior tibial pulses present GI Inspection: No distended, No Abdominal panniculus present and Yes obesity Palpation (GI): Soft to palpation, nontender, no guarding, not rigid and No hepatosplenomegaly present Percussion: Yes normal to percussion Auscultation: normal bowel sounds Rectal Exam - Female: deferred Skin General skin exam: no rashes or lesions noted, turgor normal, skin not dry, no jaundice, No spider nevi and no striae Rashes: no rashes Nails: normal Neuro General: oriented to person, oriented to place and oriented to time Cranial nerves: Yes Equal, round and reactive pupils present and Yes Normal hearing present Speech: No Abnormal speech present Extrem General: Yes normal to inspection, No clubbing, No cyanosis and No edema Psych Appearance: grossly normal and well kempt Mental Status: mental status grossly normal Speech and movement: Normal speech and movement present Affect: normal affect Attitude: cooperative Thought process: Normal thought process present and not confabulating Thought content: Normal thought content present Insight: Fair insight present (Psych) Judgement: Fair judgement present (Psych) Assessment & Plan Assessment & Plan (1) GERD (gastroesophageal reflux disease): Code(s): K21.9 - Gastro-esophageal reflux disease without esophagitis Plan: She is doing much better! She has lost 20 lbs and this has reduced her HB along with the Dexilant. She is working with a simulation software engineer and they did a carnivore diet and she finds that she can not tolerate bread r/t bloating. Her leg swelling and her migraines have also been better. She continues on her Calm supplement for her IBS and CIC and she also uses coalce. She has not had any rectal bleeding recently. ROV 6 mos. (2) Oropharyngeal dysphagia: Comment: Resolved once we got good control the reflux so this was likely due to esophageal spasm from irritation at the GE junction. Then started again with a lack or ability to initiate the swallowing sequence of uncertain cause. Code(s): R13.12 - Dysphagia, oropharyngeal phase (3) Irritable bowel syndrome with both constipation and diarrhea: Code(s): K58.2 - Mixed irritable bowel syndrome Medications: Refilled dexlansoprazole (Dexilant) 60 mg PO DAILY 90 days 90 caps 2RF K21.9 - Gastro- esophageal reflux disease without esophagitis docusate sodium 100 mg PO DAILY 90 days 90 caps 2RF K58.2 - Mixed irritable bowel syndrome Coding Level of Care Code Est Pt Level 3 (55388) Diagnoses GERD (gastroesophageal reflux disease) K21.9 Oropharyngeal dysphagia R13.12 Irritable bowel syndrome with both constipation and diarrhea K58.2
[2023-04-01 15:22] VITALS: BP 124/82; PULSE 82; BMI 35.3
== END 2023-04-01 15:49 | disposition home or self-care (01) ==
PROVIDERS: Visit Provider Nurse Practitioner
DX: K21.9 Gastro-esophageal reflux disease without esophagitis (principal); R13.12 Dysphagia, oropharyngeal phase; K58.2 Mixed irritable bowel syndrome
CPT/HCPCS: 99213

== ENCOUNTER → 2023-04-01 15:18 | Outpatient (BNVA) | payer OTHER, SELFPAY | PROVIDERS: Visit Provider Nurse Practitioner | DX: K58.2 Mixed irritable bowel syndrome (principal); R13.12 Dysphagia, oropharyngeal phase; K21.9 Gastro-esophageal reflux disease without esophagitis | CPT/HCPCS: 99212 ==

== ENCOUNTER 2023-04-17 10:44 | Emergency (ER) | payer OTHER, SELFPAY ==
[2023-04-17] VITALS (7 sets, daily range): BP systolic 114–144; BP diastolic 63–93; PULSE 57–67; RESP 18; TEMP 36.5–36.6; O2SAT 97–100; BMI 34.8
--- NOTE | ~2023-04-17 | CT_ITS ---
EXAMINATION: CT HEAD WITHOUT CONTRAST CLINICAL INFORMATION: Headache. COMPARISON: 10/17/2014 TECHNIQUE: Contiguous axial imaging was performed from the skull base to vertex without intravenous administration of contrast. This CT examination was performed using dose optimization techniques as appropriate, variously including the following: *Automated exposure control *Adjustment of mA and/or kV according to patient size (this includes techniques or standardized protocols for targeted exams where dose is matched to indication/reason for exam; i.e. extremities or head) *Use of iterative reconstruction technique DLP: 650 mGy-cm FINDINGS: There is no evidence of acute intracranial hemorrhage or territorial infarction. No mass effect or midline shift is seen. Taylor to white matter differentiation is preserved. No extra-axial fluid collections are identified. No hydrocephalus. The osseous structures and soft tissues are normal. The mastoid air cells and visualized portions of the paranasal sinuses are well aerated. CT/CT head/brain wo IV con IMPRESSION: No acute intracranial pathology.
--- NOTE | 2023-04-17 12:25 | ECG_ITS ---
Test Reason : htn Blood Pressure : / mmHG Vent. Rate : 062 BPM Atrial Rate : 062 BPM P-R Int : 124 ms QRS Dur : 096 ms QT Int : 454 ms P-R-T Axes : 044 -08 022 degrees QTc Int : 460 ms Normal sinus rhythm Minimal voltage criteria for LVH, may be normal variant ( R in aVL ) Borderline ECG No previous ECGs available Referred By: Christiano Ulloa Electronically Signed By:Umesh Martino
--- NOTE | 2023-04-17 14:06 | ED_ITS ---
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 Is now feeling better she tells me she got worried because when she felt dizzy she also had a bloody nose and she took her blood pressure and it was noted to be 150s over 90s. Now feels better just complaining of a headache sevre to the occipital region non riadiating ( no dizziness now or visual changes) She tells me she has felt bad since yesterday. Denies cp, sob, nausea, visual changes, nausea, vomiting, trauma. Med compliant with BP meds NIHSS- 0 Related Data Home Medications Medication Instructions Recorded Confirmed butalbital 50 mg-acetaminophen 300 1 cap PO Q4H PRN Migraine Headache 06/29/20 04/17/23 mg-caffeine 40 mg-codeine 30 mg cap albuterol sulfate 90 mcg/actuation 2 puff inhalation QID PRN Wheezing 01/29/22 04/17/23 aerosol inhaler (ProAir HFA) crisaborole 2 % topical ointment 1 appl topical BID PRN ecezema 01/29/22 04/17/23 (Eucrisa) hydrochlorothiazide 25 mg tablet 25 mg PO DAILY@119901/29/22 04/17/23 losartan 25 mg tablet 25 mg PO DAILY@119901/29/22 04/17/23 verapamil 120 mg tablet,extended 120 mg PO DAILY@119901/29/22 04/17/23 release fexofenadine 180 mg tablet 180 mg PO DAILY@119903/26/22 04/17/23 (Mandie Allergy) meclizine 25 mg tablet 25 mg PO DAILY PRN Migraine 03/26/22 04/17/23 Headache dexlansoprazole 60 mg 60 mg PO DAILY@1200 08/10/23 08/10/23 capsule,biphase delayed release (Dexilant) docusate sodium 100 mg capsule 100 mg PO DAILY@1200 04/17/23 04/17/23 lidocaine 5 % topical patch 1 patch topical DAILY PRN 04/17/23 04/17/23 cervicalgia Previous Rx's Medication Instructions Recorded leg brace (Ankle Brace) #1 ea 06/29/20 fluticasone propionate 50 1 inh inhalation BID 30 days #60 ea 07/11/22 mcg/actuation blister powder for inhalation (Flovent Diskus) meclizine 25 mg tablet 25 mg PO TID PRN dizziness #20 tabs 04/17/23 Allergies Allergy/AdvReac Type Severity Reaction Status Date / Time latex [LATEX] Allergy Mild RASH Verified 10/08/22 15:31 Seasonal Allergies Allergy Unknown none Verified 04/01/23 15:30 Review of Systems Review of Systems: Constitutional : No Weight loss, No Fever, No Chills, No Fatigue, No Malaise ENT/Mouth : No sore throat, No Rhinorrhea Eyes: No Eye Pain, No Swelling, No Redness Cardiovascular : No Chest Pain, No SOB, No Dyspnea on Exertion, No Orthopnea, No Edema, No Palpitations Respiratory : No Cough, No Sputum, No Wheezing Gastrointestinal : No Nausea, No Vomiting, No Diarrhea, No Constipation, No abdominal Pain, No Hematochezia, No Melena Genitourinary : No Dysuria, No Urinary Frequency, No Hematuria, Musculoskeletal : No joint pain, No Myalgias, No Joint Swelling Skin : No Skin Lesions, No rash Neuro : No Weakness, No Numbness, No Dizziness, + Headache Psych : No Anxiety/Panic, No Depression All other systems reviewed and are negative Yes all other systems are reviewed and are negative [facility] Past Medical History Attestation statement: The following information was validated with the patient. Source: old records reviewed and nursing notes reviewed Medical History Arthropathy of cervical facet joint Asthma Spondylosis of cervical spine without myelopathy Surgical History H/O: hysterectomy History of esophagogastroduodenoscopy (EGD) Hx of colonoscopy Family History Family History Father Digestive disorder Cirrhosis of liver Mother Throat cancer Brother Digestive disorder Sister Digestive disorder Maternal Grandmother HTN (hypertension) Heart problem Social History Social History (Updated 10/08/22 @ 15:31 by Mehnaz Fisher MA) Household Members: None Alcohol intake: never Patient Tobacco Use Status: Never used Tobacco Advance Directives: No Current occupational status: employed 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 Oriented X3.? No acute distress.? Head: Normocephalic, atraumatic, no step-offs or deformities Eyes: Pupils equal, round and reactive to light.? CVS: Normal heart rate and rhythm.? Pulses normal.? Respiratory: No respiratory distress.? Breath sounds normal.? Abdomen: Soft and nontender.? Skin: Skin warm and dry.? Normal skin color.? Normal skin turgor.? Extremities: No lower extremity edema.? No calf ttp. 5/5 strength to bilateral upper and lower extremities Back: No midline tenderness, no C-spine tenderness, full range of motion, no CVA tenderness bilaterally Neuro: Oriented X 3.? No motor deficit.? No sensory deficit. CN 2-12 intact . Normal pbascf-[id number], nrxi-[id number], steady tandem gait normal coordination. Course Reevaluation(s) Reevaluation #1: CBC with slight leukocytosis 11.3, likely reactive I do not suspect infection. Chemistry low potassium, oral potassium ordered, troponin negative, EKG nonischemic, heart score of 1 no cp at this time no need for repeat trop. Perc negative no need for dimer. Head CT unremarkable. head CT unremarkable. Patient reporting that headache has improved, will give Reglan and Benadryl, No meningeal signs on exam unlikely meningitis or encephalitis. Orthostatic vital signs pending at this time, patient does report when she got up to go to the bathroom, she got dizzy and felt nauseous again. I suspect this is likely orthostatic dizziness. Time: 16:35 Reevaluation #2: Orthostatics negative, however patient symptomatic throughout with positional changes. Additional L of IV fluids ordered. As well as meclizine. Time: 16:43 Reevaluation #3: Diazepam also ordered. Not improving. Spoke to hospitalist recommends sumatriptan, and re-evaluation. Additional Reevaluation(s): sign out to [place] [facility] [id number]- patient received in sign-out at change of shift pending re-evaluation after multiple medications better and would like to be discharged home. Will give her a new prescription for meclizine Medications Administered Discontinued Medications Generic Name Dose Route Start Last Admin Trade Name Freq PRN Reason Stop Dose Admin Diazepam 2 mg 04/17/23 17:41 04/17/23 18:20 Diazepam 2 Mg Tablet PO 04/17/23 17:42 2 mg ONCE ONE Administration Diphenhydramine HCl 25 mg 04/17/23 16:34 04/17/23 17:15 Diphenhydramine Hcl 50 Mg/Ml Vial IVPUSH 04/17/23 16:35 25 mg ONCE ONE Administration Sodium Chloride 1,000 mls @ 999 mls/hr 04/17/23 14:45 04/17/23 16:25 Ns IV 04/17/23 15:45 Infused .Q1H1M RINKU Infusion Sodium Chloride 1,000 mls @ 999 mls/hr 04/17/23 16:45 04/17/23 18:16 Ns IV 04/17/23 17:45 Infused .Q1H1M RINKU Infusion Ketorolac Tromethamine 30 mg 04/17/23 13:56 04/17/23 15:12 Ketorolac Tromethamine 15 Mg/Ml Vial IM 04/17/23 13:57 30 mg ONCE ONE Administration Meclizine HCl 25 mg 04/17/23 16:42 04/17/23 17:15 Meclizine Hcl 25 Mg Tablet PO 04/17/23 16:43 25 mg ONCE ONE Administration Metoclopramide HCl 10 mg 04/17/23 16:34 04/17/23 17:15 Metoclopramide Hcl 10 Mg/2 Ml Vial IVPUSH 04/17/23 16:35 10 mg ONCE ONE Administration Potassium Chloride 40 meq 04/17/23 15:28 04/17/23 16:00 Potassium Chloride Packet 20 Meq Packet PO 04/17/23 15:29 40 meq ONCE ONE Administration Sumatriptan Succinate 6 mg 04/17/23 18:29 04/17/23 19:09 Sumatriptan Succinate 6 Mg/0.5 Ml Vial SUBCUT 04/17/23 18:30 6 mg ONCE ONE Administration Medical Decision Making Medical Decision Making [facility] Narrative: 1400 47-year-old female presents with dizziness since this morning, reports it is now better just has a headache. Physical exam benign. Neuro nonfocal. Cerebellar intact. Concerns for complex migraine versus vertigo vs TIA Will rule out metabolic derangements, ACS although unlikely. Unlikely PE. I do not suspect stroke, pos terior stroke, intracranial hemorrhage. Possible dehydration. Will also rule out UTI plan labs, imaging, EKG. Differential Diagnosis Differential Diagnoses: The differential diagnosis associated with the presentation includes Concerns for complex migraine versus vertigo vs TIA. Will rule out metabolic derangements, ACS although unlikely. Unlikely PE. I do not suspect stroke, posterior stroke, intracranial hemorrhage. Possible dehydration. Will also rule out UTI Admission/Observation Consideration of admission/observation: Escalation of care including admission/observation considered Unlikely Lab Data [facility] Lab Attestation statement: I reviewed the patient's lab results. 04/17/23 14:53 04/17/23 14:53 Labs: Lab Results 04/17/23 04/17/23 04/17/23 Range/Units 14:53 14:53 14:53 WBC 11.3 H (4.8-10.8) X10*3/uL RBC 5.26 (4.20-5.50) X10*6/uL Hgb 15.1 (12.0-16.0) g/dl Hct 44.7 (37.0-47.0) % MCV 85.0 (80.0-98.0) fL MCH 28.7 (27.0-33.0) pg MCHC 33.8 (31.0-35.0) g/dl RDW 13.9 (11.0-16.0) % Plt Count 216 (160-400) X10*3/uL MPV 10.4 (9.4-12.3) fL Immature Gran % (Auto) 0.9 H (0.0-0.4) % Neut % (Auto) 53.2 (45-73) % Lymph % (Auto) 38.5 (20-40) % Kendall % (Auto) 6.1 (2-11) % Eos % (Auto) 1.1 (0-4) % Baso % (Auto) 0.2 (0-2) % Lymph # (Auto) 4.4 (1.2-4.9) X10*3/uL Kendall # (Auto) 0.7 (0.1-1.2) X10*3/uL Eos # (Auto) 0.1 (0.0-0.4) X10*3/uL Baso # (Auto) 0.0 (0.0-0.2) X10*3/uL Abs Immat Gran (auto) 0.10 H (0.00-0.03) X10*3/uL Absolute Neuts (auto) 6.0 (2.0-8.3) x10*3/uL Absolute Nucleated RBC 0.000 (0.0-0.012) X10*3/uL Nucleated RBC % (auto) 0.0 (0.0-0.2) /100WBC Sodium 140 (135-145) mmol/L Potassium 3.1 L D (3.3-5.1) mmol/L Chloride 103 (96-108) mmol/L Carbon Dioxide 26 (22-29) mmol/L Anion Gap 14 (12-20) BUN 15 (9-16) mg/dL Creatinine 0.79 (0.5-1.4) mg/dL Estim Creat Clear Calc 95.7 Estimated GFR > 60 Random Glucose 79 (60-115) mg/dL Calcium 10.1 (8.4-10.2) mg/dL Magnesium 2.1 (1.6-2.6) mg/dL Total Bilirubin 0.5 (0.0-1.0) mg/dL AST 13 (5-31) U/L ALT 18 (0-31) U/L Alkaline Phosphatase 50 (39-117) U/L Troponin I High Sens < 2.7 (<3.5-17.0) ng/L Total Protein 7.6 (6.5-8.0) g/dL Albumin 4.4 (3.5-5.0) g/dL Urine Color Urine Appearance Urine pH (5.0-9.0) Ur Specific [place] (1.005-1.025) Urine Protein (Neg-Trace) mg/dL Urine Glucose (UA) (Negative) mg/dL Urine Ketones (Negative) mg/dL Urine Blood (Negative) Urine Nitrite (Negative) Ur Leukocyte Esterase (Negative) Urine RBC (0-2) /HPF Urine WBC (0-5) /HPF Ur Squamous Epith Cells (0-2) /HPF Urine Bacteria (None Seen) Hyaline Casts (0-2) /LPF 04/17/23 Range/Units 16:49 WBC (4.8-10.8) X10*3/uL RBC (4.20-5.50) X10*6/uL Hgb (12.0-16.0) g/dl Hct (37.0-47.0) % MCV (80.0-98.0) fL MCH (27.0-33.0) pg MCHC (31.0-35.0) g/dl RDW (11.0-16.0) % Plt Count (160-400) X10*3/uL MPV (9.4-12.3) fL Immature Gran % (Auto) (0.0-0.4) % Neut % (Auto) (45-73) % Lymph % (Auto) (20-40) % Kendall % (Auto) (2-11) % Eos % (Auto) (0-4) % Baso % (Auto) (0-2) % Lymph # (Auto) (1.2-4.9) X10*3/uL Kendall # (Auto) (0.1-1.2) X10*3/uL Eos # (Auto) (0.0-0.4) X10*3/uL Baso # (Auto) (0.0-0.2) X10*3/uL Abs Immat Gran (auto) (0.00-0.03) X10*3/uL Absolute Neuts (auto) (2.0-8.3) x10*3/uL Absolute Nucleated RBC (0.0-0.012) X10*3/uL Nucleated RBC % (auto) (0.0-0.2) /100WBC Sodium (135-145) mmol/L Potassium (3.3-5.1) mmol/L Chloride (96-108) mmol/L Carbon Dioxide (22-29) mmol/L Anion Gap (12-20) BUN (9-16) mg/dL Creatinine (0.5-1.4) mg/dL Estim Creat Clear Calc Estimated GFR Random Glucose (60-115) mg/dL Calcium (8.4-10.2) mg/dL Magnesium (1.6-2.6) mg/dL Total Bilirubin (0.0-1.0) mg/dL AST (5-31) U/L ALT (0-31) U/L Alkaline Phosphatase (39-117) U/L Troponin I High Sens (<3.5-17.0) ng/L Total Protein (6.5-8.0) g/dL Albumin (3.5-5.0) g/dL Urine Color Yellow Urine Appearance Clear Urine pH 7.0 (5.0-9.0) Ur Specific [place] 1.010 (1.005-1.025) Urine Protein Negative (Neg-Trace) mg/dL Urine Glucose (UA) Negative (Negative) mg/dL Urine Ketones Trace (Negative) mg/dL Urine Blood Negative (Negative) Urine Nitrite Negative (Negative) Ur Leukocyte Esterase Trace H (Negative) Urine RBC 0-2 (0-2) /HPF Urine WBC 0-5 (0-5) /HPF Ur Squamous Epith Cells 0-2 (0-2) /HPF Urine Bacteria None Seen (None Seen) Hyaline Casts 0-2 (0-2) /LPF Independent Interpretation I performed an independent interpretation of an: EKG ( ventricular rate of 62, ND normal, QRS normal, QT / QTC normal. EKG normal sinus rhythm no ST elevations or inversions concerning for acute ischemia.) and CT Scan (CT/CT head/brain wo IV con IMPRESSION: No acute intracranial pathology.) Radiology Impression Discussion of test interpretation with radiology: I have reviewed the radiologist's reading. Tests considered The following testing was considered but not selected: H stroke scale 0, no focal neuro deficits no need for CTA or MRI at this time unlikely acute stroke, also patient's symptoms started at 06:00 out of stroke window Core Measures AMI core measures followed: Yes Measure exclusions: not indicated Critical Care Time Critical Care Time Critical Care Time: No Discharge Plan Discharge Clinical Impression: Orthostatic dizziness, Acute migraine, Near syncope Patient Disposition: Home, Self-Care Instructions: Migraine Headache (ED), Dizziness (ED) Additional Instructions: Drink lots of fluids to stay well-hydrated Take meclizine as needed for dizziness Follow-up with your primary doctor Return for any new or worsening symptoms Prescriptions: New meclizine 25 mg tablet 25 mg PO TID PRN (Reason: dizziness) Qty: 20 0RF No Action lidocaine 5 % adhesive patch,medicated 1 patch topical DAILY PRN (Reason: cervicalgia) docusate sodium 100 mg capsule 100 mg PO DAILY@1200 dexlansoprazole [Dexilant] 60 mg capsule,biphase delayed releas 60 mg PO DAILY@1200 [id number] mg capsule 1 cap PO Q4H PRN (Reason: Migraine Headache) (DME) Ankle Brace Misc See Rx Instructions .MEDSUPPLY Qty: 1 0RF Rx Instructions: stabilizing pro ankle, blk,L Flovent Diskus 50 mcg/actuation blister with device 1 inh inhalation BID 30 Days Qty: 60 6RF albuterol sulfate [ProAir HFA] 90 mcg/actuation HFA aerosol inhaler 2 puff inhalation QID PRN (Reason: Wheezing) Eucrisa 2 % ointment 1 appl topical BID PRN (Reason: ecezema) losartan 25 mg tablet 25 mg PO DAILY@1200 hydrochlorothiazide 25 mg tablet 25 mg PO DAILY@1200 verapamil 120 mg tablet extended release 120 mg PO DAILY@1200 meclizine 25 mg tablet 25 mg PO DAILY PRN (Reason: Migraine Headache) fexofenadine [Mandie Allergy] 180 mg tablet 180 mg PO DAILY@1200
[2023-04-17 14:58] LABS: MANUAL DIFF FLAG NO
[2023-04-17 15:00] LABS: Basophils Percent Auto 0.2 % (0-2); Eosinophils Absolute Auto 0.1 X10*3/uL (0.0-0.4); Eosinophils Percent Auto 1.1 % (0-4); Hematocrit 44.7 % (37.0-47.0); Hemoglobin 15.1 g/dl (12.0-16.0); Imm Gran Pct Auto 0.9 % (0.0-0.4); Lymphocytes Absolute Auto 4.4 X10*3/uL (1.2-4.9); Lymphocytes Percent Auto 38.5 % (20-40); Mean Corpuscular HGB Conc 33.8 g/dl (31.0-35.0); Mean Corpuscular Hemoglobin 28.7 pg (27.0-33.0); Mean Platelet Volume 10.4 fL (9.4-12.3); Monocytes Absolute Auto 0.7 X10*3/uL (0.1-1.2); Monocytes Percent Auto 6.1 % (2-11); Neutrophils Percent Auto 53.2 % (45-73); Platelet Count 216 X10*3/uL (160-400); Red Blood Count 5.26 X10*6/uL (4.20-5.50); Red Cell Distribution Width 13.9 % (11.0-16.0); White Blood Count 11.3 X10*3/uL (4.8-10.8)
[2023-04-17] MEDS: Ketorolac Tromethamine 15 MG/ML VIAL 30 MG IM (15:12)
[2023-04-17 15:14] LABS: Alanine Aminotransferase 18 U/L (0-31); Albumin Level 4.4 g/dL (3.5-5.0); Alkaline Phosphatase 50 U/L (39-117); Anion Gap 14 (12-20); Aspartate Amino Transferase 13 U/L (5-31); Bilirubin Total 0.5 mg/dL (0.0-1.0); Blood Urea Nitrogen 15 mg/dL (9-16); Calcium 10.1 mg/dL (8.4-10.2); Carbon Dioxide 26 mmol/L (22-29); Chloride 103 mmol/L (96-108); Creatinine Clr Calc Pharmacy 95.7; Estimated Glomerular Filt Rate > 60; Glucose Random 79 mg/dL (60-115); Magnesium 2.1 mg/dL (1.6-2.6); Potassium 3.1 mmol/L (3.3-5.1); Sodium 140 mmol/L (135-145); Total Protein 7.6 g/dL (6.5-8.0)
[2023-04-17 15:23] LABS: Troponin-I High Sensitivity < 2.7 ng/L (<3.5-17.0)
[2023-04-17] MEDS: 0.9 % Sodium Chloride 1,000 ML 999 ML IV ×2 (15:24→17:15)
[2023-04-17] MEDS: Potassium Chloride Packet 20 MEQ PACKET 40 MEQ PO (16:00)
[2023-04-17 17:09] LABS: Appearance Urine Clear; Color Urine Yellow; Glucose Urine UA Negative (Negative); Leukocyte Esterase Urine Trace (Negative); Nitrite Urine Negative (Negative); UMIC TRIGGER UACC YES; Urine Blood Negative (Negative); Urine Ketones Trace mg/dL (Negative); Urine Protein Negative (Neg-Trace)
[2023-04-17 17:11] LABS: Bacteria Urine None Seen (None Seen); Hyaline Casts Urine 0-2 /LPF (0-2); RBC Urine 0-2 /HPF (0-2); Squamous Epithelial Cell Urine 0-2 /HPF (0-2); WBC Urine 0-5 /HPF (0-5)
[2023-04-17] MEDS: Metoclopramide HCl 10 MG/2 ML VIAL IVPUSH (17:15)
[2023-04-17] MEDS: Meclizine HCl 25 MG TABLET PO (17:15)
[2023-04-17] MEDS: diphenhydrAMINE HCL 50 MG/ML VIAL 25 MG IVPUSH (17:15)
--- NOTE | 2023-04-17 18:14 | PHA.MEDREC ---
Pharmacy Consult ? Medication Reconciliation Pharmacy has completed the medication reconciliation. Patient reported all medications. Reports she takes her medications around noon time. Kaila Alvarado, SidD
[2023-04-17] MEDS: diazePAM 2 MG TABLET PO (18:20)
[2023-04-17] MEDS: SUMAtriptan succinate 6 MG/0.5 ML VIAL SUBCUT (19:09)
== END 2023-04-17 22:32 | disposition home or self-care (01) ==
PROVIDERS: Physician Assistant; Emergency Provider Emergency Medicine; PCP Student in an Organized Health Care Education/Training Program
DX: R42 Dizziness and giddiness (principal); G43.909 Migraine, unspecified, not intractable, without status migrainosus; R55 Syncope and collapse; R94.31 Abnormal electrocardiogram [ECG] [EKG]; I10 Essential (primary) hypertension; Z79.899 Other long term (current) drug therapy
CPT/HCPCS: 36415; 70450; 80053; 81001; 83735; 84484; 85025; 93005; 96361; 96372; 96374; 96375; 99284; J1200; J1885; J2765; J3030

== ENCOUNTER → 2023-04-17 12:25 | Outpatient (BNV) | payer OTHER, SELFPAY | PROVIDERS: Emergency Provider Emergency Medicine; PCP Student in an Organized Health Care Education/Training Program; Visit Provider Internal Medicine Cardiovascular Disease | DX: I10 Essential (primary) hypertension (principal) | CPT/HCPCS: 93010 ==

== ENCOUNTER 2023-04-21 10:26 | Outpatient (REF) | payer OTHER, SELFPAY ==
[2023-04-21 14:27] LABS: MANUAL DIFF FLAG NO
[2023-04-21 14:32] LABS: Basophils Percent Auto 0.3 % (0-2); Eosinophils Absolute Auto 0.2 X10*3/uL (0.0-0.4); Eosinophils Percent Auto 1.6 % (0-4); Hematocrit 44.4 % (37.0-47.0); Hemoglobin 14.8 g/dl (12.0-16.0); Imm Gran Abs Auto 0.06 X10*3/uL (0.00-0.03); Imm Gran Pct Auto 0.6 % (0.0-0.4); Lymphocytes Absolute Auto 2.7 X10*3/uL (1.2-4.9); Lymphocytes Percent Auto 26.9 % (20-40); Mean Corpuscular HGB Conc 33.3 g/dl (31.0-35.0); Mean Corpuscular Volume 86.9 fL (80.0-98.0); Mean Platelet Volume 11.4 fL (9.4-12.3); Monocytes Absolute Auto 0.7 X10*3/uL (0.1-1.2); Monocytes Percent Auto 7.1 % (2-11); Neutrophils Absolute Auto 6.5 x10*3/uL (2.0-8.3); Neutrophils Percent Auto 63.5 % (45-73); Platelet Count 208 X10*3/uL (160-400); Red Blood Count 5.11 X10*6/uL (4.20-5.50); Red Cell Distribution Width 14.1 % (11.0-16.0); White Blood Count 10.2 X10*3/uL (4.8-10.8)
[2023-04-22 01:44] LABS: Anion Gap 12 (12-20); Blood Urea Nitrogen 25 mg/dL (9-16); Calcium 9.5 mg/dL (8.4-10.2); Carbon Dioxide 28 mmol/L (22-29); Chloride 103 mmol/L (96-108); Estimated Glomerular Filt Rate > 60; Glucose Random 64 mg/dL (60-115); Magnesium 2.1 mg/dL (1.6-2.6); Potassium 4.1 mmol/L (3.3-5.1); Sodium 139 mmol/L (135-145)
[2023-04-22 02:02] LABS: TSH reflex Free T4 0.95 uIU/mL (0.32-4.0)
[2023-04-26 12:33] LABS: VITAMIN D (1,25 OH) D3 65 pg/mL; Vit D (1,25-Dihydroxy) Total 65 pg/mL (18-72); Vitamin D (1,25 OH) D2 <8 pg/mL
== END 2023-04-21 10:27 | disposition home or self-care (01) ==
LOC: HO.CHCLDS 10:26
PROVIDERS: Visit Provider Family Medicine
DX: E78.6 Lipoprotein deficiency (principal); R52 Pain, unspecified; R00.2 Palpitations; E66.9 Obesity, unspecified; Z68.34 Body mass index [BMI] 34.0-34.9, adult
CPT/HCPCS: 36415; 80048; 82652; 83735; 84443; 85025

== ENCOUNTER → 2023-05-02 15:06 | Outpatient (REF) | payer OTHER, SELFPAY ==
--- NOTE | 2023-05-02 15:09 | HM_ITS ---
* Total monitoring time about 1 day. * Underlying rhythm is sinus. Average ventricular rate 68/Min. Range 47 to 124/Min. * Extremely rare supraventricular ectopy with minimal burden. * No significant pauses or AV blocks. * Symptoms in patient diary including tightness in chest, shortness of breath, tiredness, headache correlate with sinus rhythm. MTDD
== END ==
LOC: HO.CARD 15:06
PROVIDERS: PCP Student in an Organized Health Care Education/Training Program; Visit Provider Family Medicine
DX: R00.2 Palpitations (principal)
CPT/HCPCS: 93225

== ENCOUNTER → 2023-05-02 15:09 | Outpatient (BNV) | payer OTHER, SELFPAY | PROVIDERS: PCP Student in an Organized Health Care Education/Training Program; Visit Provider Internal Medicine | DX: R00.2 Palpitations (principal) | CPT/HCPCS: 93227 ==

== ENCOUNTER 2023-07-09 11:29 | Outpatient (REF) | payer OTHER, SELFPAY ==
[2023-07-09 14:30] LABS: Anion Gap 13 (12-20); Blood Urea Nitrogen 12 mg/dL (9-16); Calcium 9.6 mg/dL (8.4-10.2); Carbon Dioxide 26 mmol/L (22-29); Chloride 102 mmol/L (96-108); Estimated Glomerular Filt Rate > 60; Glucose Random 74 mg/dL (60-115); Potassium 3.4 mmol/L (3.3-5.1); Sodium 138 mmol/L (135-145)
== END 2023-07-09 11:30 | disposition home or self-care (01) ==
LOC: HO.CHCLDS 11:29
PROVIDERS: Visit Provider Student in an Organized Health Care Education/Training Program
DX: E87.6 Hypokalemia (principal)
CPT/HCPCS: 36415; 80048

== ENCOUNTER 2023-09-23 16:01 | Outpatient (AMB) | payer OTHER, SELFPAY ==
[2023-09-23 16:06] VITALS: BP 125/66; PULSE 77; BMI 35.9
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
== END 2023-09-23 16:45 | disposition home or self-care (01) ==
PROVIDERS: PCP Student in an Organized Health Care Education/Training Program; Visit Provider Nurse Practitioner
DX: K21.9 Gastro-esophageal reflux disease without esophagitis (principal); K58.2 Mixed irritable bowel syndrome; R13.12 Dysphagia, oropharyngeal phase
CPT/HCPCS: 99213

== ENCOUNTER → 2023-09-23 16:01 | Outpatient (BNVA) | payer OTHER, SELFPAY | PROVIDERS: PCP Student in an Organized Health Care Education/Training Program; Visit Provider Nurse Practitioner | DX: K21.9 Gastro-esophageal reflux disease without esophagitis (principal); K58.2 Mixed irritable bowel syndrome; R13.12 Dysphagia, oropharyngeal phase | CPT/HCPCS: 99212 ==

== ENCOUNTER 2024-02-24 08:58 | Outpatient (REF) | payer OTHER, SELFPAY ==
[2024-02-24 14:34] LABS: Appearance Urine Turbid; Color Urine Dark Yellow; Glucose Urine UA Negative (Negative); Leukocyte Esterase Urine Negative (Negative); Nitrite Urine Negative (Negative); PH 5.5 (5.0-9.0); Specific Gravity - Urine >= 1.030 (1.005-1.025); Urine Blood Negative (Negative); Urine Ketones Negative (Negative); Urine Protein Negative (Neg-Trace)
[2024-02-24 14:39] LABS: Bacteria Urine 2+ (None Seen); Hyaline Casts Urine 0-2 /LPF (0-2); RBC Urine 0-2 /HPF (0-2); Squamous Epithelial Cell Urine >20 /HPF (0-2); WBC Urine 0-5 /HPF (0-5)
[2024-02-24 14:57] LABS: Alanine Aminotransferase 19 U/L (0-31); Albumin Level 4.3 g/dL (3.5-5.0); Alkaline Phosphatase 54 U/L (39-117); Anion Gap 13 (12-20); Aspartate Amino Transferase 18 U/L (5-31); Bilirubin Direct 0.1 mg/dL (0.0-0.5); Bilirubin Total 0.3 mg/dL (0.0-1.0); Blood Urea Nitrogen 16 mg/dL (9-16); Calcium 9.7 mg/dL (8.4-10.2); Carbon Dioxide 28 mmol/L (22-29); Chloride 105 mmol/L (96-108); Cholesterol 210 mg/dL (<200); Estimated Glomerular Filt Rate > 60; Glucose Random 80 mg/dL (60-115); HDL Cholesterol 62 mg/dL (>40); LDL Cholesterol Calculated 138 mg/dL (<100); Potassium 3.5 mmol/L (3.3-5.1); Sodium 142 mmol/L (135-145); Total Protein 7.5 g/dL (6.5-8.0); Triglycerides 53 mg/dL (<150)
== END 2024-02-24 08:59 | disposition home or self-care (01) ==
LOC: HO.CHCLDS 08:58
PROVIDERS: Visit Provider Student in an Organized Health Care Education/Training Program
DX: E87.6 Hypokalemia (principal)
CPT/HCPCS: 36415; 80048; 80061; 80076; 81001

== ENCOUNTER 2024-04-08 13:17 | Outpatient (REF) | payer OTHER, SELFPAY ==
--- NOTE | ~2024-04-08 | XR_ITS ---
EXAMINATION: XR CHEST 2 VIEW CLINICAL INFORMATION: Positive tuberculosis test COMPARISON: 12/18/2018 TECHNIQUE: PA and lateral views of the chest obtained. FINDINGS: The lungs are clear. There are no pleural effusions. The cardiomediastinal silhouette is normal. XR/XR chest 2V IMPRESSION: No acute cardiopulmonary disease.
== END 2024-04-08 13:18 | disposition home or self-care (01) ==
LOC: HO.HHCX 13:17
PROVIDERS: Visit Provider Student in an Organized Health Care Education/Training Program
DX: Z11.1 Encounter for screening for respiratory tuberculosis (principal); R76.11 Nonspecific reaction to tuberculin skin test without active tuberculosis
CPT/HCPCS: 71046

== ENCOUNTER 2024-06-09 10:49 | Outpatient (REF) | payer OTHER, SELFPAY ==
--- NOTE | ~2024-06-09 | XR_ITS ---
EXAMINATION: XR HAND, LEFT CLINICAL INFORMATION: Pain COMPARISON: None available. TECHNIQUE: PA, lateral, and oblique views of the left hand. FINDINGS: The bones and soft tissues are normal. No fracture. Alignment is anatomic. Joint spaces are maintained. No erosions or soft tissue calcifications. XR/XR hand LT min 3V IMPRESSION: Normal left hand. Electronically signed by: Ruddy Ambrosio MD 06/09/2024 12:00 PM EDT
== END 2024-06-09 10:50 | disposition home or self-care (01) ==
LOC: HO.XRAY 10:49
PROVIDERS: PCP Student in an Organized Health Care Education/Training Program; Visit Provider Student in an Organized Health Care Education/Training Program
DX: M77.8 Other enthesopathies, not elsewhere classified (principal)
CPT/HCPCS: 73130

== ENCOUNTER 2024-09-23 09:59 | Outpatient (REF) | payer OTHER, SELFPAY ==
[2024-09-23 14:37] LABS: Alanine Aminotransferase 31 U/L (0-31); Albumin Level 3.7 g/dL (3.5-5.0); Alkaline Phosphatase 48 U/L (39-117); Anion Gap 10 (12-20); Aspartate Amino Transferase 29 U/L (5-31); Bilirubin Direct 0.1 mg/dL (0.0-0.5); Bilirubin Total 0.4 mg/dL (0.0-1.0); Blood Urea Nitrogen 46 mg/dL (9-16); Calcium 8.6 mg/dL (8.4-10.2); Carbon Dioxide 23 mmol/L (22-29); Chloride 111 mmol/L (96-108); Cholesterol 117 mg/dL (<200); Estimated Glomerular Filt Rate 40; Glucose Random 111 mg/dL (60-115); HDL Cholesterol 40 mg/dL (>40); LDL Cholesterol Calculated 38 mg/dL (<100); Potassium 4.3 mmol/L (3.3-5.1); Sodium 140 mmol/L (135-145); Total Protein 6.3 g/dL (6.5-8.0); Triglycerides 198 mg/dL (<150)
== END 2024-09-23 10:00 | disposition home or self-care (01) ==
LOC: HO.CHCLDS 09:59
PROVIDERS: Visit Provider Student in an Organized Health Care Education/Training Program
DX: I10 Essential (primary) hypertension (principal)
CPT/HCPCS: 36415; 80048; 80061; 80076

== ENCOUNTER 2024-09-30 08:28 | Outpatient (REF) | payer OTHER, SELFPAY ==
--- NOTE | ~2024-09-30 | XR_ITS ---
EXAMINATION: XR HAND 3 OR MORE VIEWS LEFT HISTORY: M79.642 - Pain in left hand COMPARISON: Comparison is made with the prior examination dated 06/09/2024. FINDINGS: Three views of the left hand are submitted. Osseous mineralization is normal. There is no fracture or dislocation. The joint spaces are preserved. The soft tissues are unremarkable. XR/XR hand LT min 3V IMPRESSION: Unremarkable examination of the left hand. Electronically signed by: Mookie Alas MD 09/30/2024 01:55 PM EST
== END 2024-09-30 08:29 | disposition home or self-care (01) ==
LOC: HO.HOSX 08:28
DX: M79.642 Pain in left hand (principal); M65.312 Trigger thumb, left thumb
CPT/HCPCS: 73130; 99202

== ENCOUNTER 2024-09-30 08:37 | Outpatient (AMB) | payer OTHER, SELFPAY ==
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
[2024-09-30 08:45] VITALS: BMI 37.9
== END 2024-09-30 09:06 | disposition home or self-care (01) ==
PROVIDERS: PCP Student in an Organized Health Care Education/Training Program
DX: M65.312 Trigger thumb, left thumb (principal)
CPT/HCPCS: 99204

== ENCOUNTER → 2024-09-30 08:39 | Outpatient (BNV) | payer OTHER, SELFPAY | PROVIDERS: Visit Provider Radiology Diagnostic Radiology | DX: M79.642 Pain in left hand (principal) | CPT/HCPCS: 73130 ==

== ENCOUNTER 2024-10-27 07:09 | Day surgery (SDC) | payer OTHER, SELFPAY ==
[2024-10-27 07:31] VITALS: BP 127/77; PULSE 80; RESP 16; TEMP 36.4; O2SAT 95; BMI 37.6
--- NOTE | 2024-10-27 08:17 | MHC.SHP ---
Pre-Procedural Eval Section A - 24 Hr Update-Section A only Date of Service: 10/27/24 The patient is an INPATIENT: No Changes since office visit: No Cold of Flu in the past 2 weeks, No New Medical Problems, No Changes in Medication and No Patient answered all questions The patient has been examined within 24 hours of the surgical procedure. The History & Physical has been completed within 30 days and I have reviewed it.: Yes Section B - Complete if H&P > 30 days Chief Complaint: Trigger thumb, left thumb Allergies: Allergies Allergy/AdvReac Type Severity Reaction Status Date / Time latex [LATEX] Allergy Mild RASH Verified 10/27/24 07:39 Seasonal Allergies Allergy Unknown none Verified 10/27/24 07:39 Plan Diagnosis/Plan: Unchanged I have reviewed the history and physical and performed a pertinent physical examination on my patient. No changes have occurred unless specified. Time Spent With Patient Time: Total time managing care of this patient today ____ minutes.
--- NOTE | 2024-10-27 08:18 | P.OP_ITS ---
Operative Note Operative Note Date of Service: 10/27/24 Narrative: Operative Note Preop diagnosis: 1. Left trigger thumb Postop diagnosis: Same Procedure: 1. Left thumb A1 damion release Surgeon: Malai Alan MD Erection Shop Supervisor: Wander ROBISON Anesthesia: local block using 1% lidocaine with epinephrine Findings: No locking or catching after A1 damion release EBL: Less than 5 mL Tourniquet time: None Specimens: None Complications: None Disposition: Brought to recovery room in stable condition Plan: Follow-up for 10-14 days for wound check and suture removal Indications: The patient is 49 years old, with a left trigger thumb that has been unresponsive to nonoperative management. The risks and benefits of operative treatment including but not limited to risk of damage to blood vessels, nerves, tendons, infection, persistent pain, persistent symptoms, recurrence or possible need for additional surgery were discussed with the patient and the patient wishes to proceed with surgery. Procedure: Once consent was obtained a local block was performed in the preop area using a combination of 1% lidocaine with epinephrine. The patient was then brought back to the operating suite and placed on the operative table in supine position. The left upper extremity was prepped and draped in a standard surgical fashion. Once assured that we had a good block, a 1.5 cm oblique incision was made centered over the A1 damion of the left thumb . The incision was made through the skin to the subcutaneous tissues using a #15 blade. Careful dissection was made down to the level of the A1 damion using tenotomy scissors, with care being taken to protect the nearby neurovascular structures. A longitudinal incision was made in the A1 damion 1st using a #15 blade, then using tenotomy scissors under direct visualization. The A1 damion was noted to be thickened. Following our A1 damion release, we no longer saw any locking or catching of the digit with flexion and extension. Once satisfied with our A1 damion release the wound was copiously irrigated with normal saline and hemostasis was obtained with a brief period of local pressure. The skin edges were reapproximated with some 5.0 nylon suture material and a sterile dressing was applied. The patient appears to have tolerated the procedure well and with no complications. All digits were well vascularized at the conclusion of the case.
[2024-10-27 08:48] VITALS: BP 137/80; PULSE 67; O2SAT 100
== END 2024-10-27 08:55 | disposition home or self-care (01) ==
PROVIDERS: PCP Student in an Organized Health Care Education/Training Program; Visit Provider Orthopaedic Surgery
PROC: (CPT 26055; principal; 2024-10-27 08:30)
DX: M65.312 Trigger thumb, left thumb (principal); M79.645 Pain in left finger(s); J30.2 Other seasonal allergic rhinitis; M47.812 Spondylosis without myelopathy or radiculopathy, cervical region; J45.909 Unspecified asthma, uncomplicated; Z91.040 Latex allergy status; Z79.899 Other long term (current) drug therapy
CPT/HCPCS: 26055; J0171; J2003

== ENCOUNTER → 2024-10-27 07:09 | Outpatient (BNV) | payer OTHER, SELFPAY | PROVIDERS: PCP Student in an Organized Health Care Education/Training Program; Visit Provider Orthopaedic Surgery | DX: M65.312 Trigger thumb, left thumb (principal) | CPT/HCPCS: 26055 ==

== ENCOUNTER 2024-10-28 09:42 | Outpatient (REF) | payer OTHER, SELFPAY ==
--- OUTSIDE RECORDS SUMMARY | 2024-10-28 11:18 | XMS_ITS | Encounter Summary ---
Author Organization [employer] Address [address] [facility] [address] [place] [address] Care Team Providers Care Speech Scientist Name Role Phone Freya Dalton MD Primary Care Provider [phone] Reason for Visit * Reason Onset Date Comments FYI 07/23/2023 Encounter Details Date Type Department Care Team ([facility] Contact Info) Description 07/23/2023 Telephone [facility] MEDICINE [address] [place] [address] Freya Dalton MD [address] [place] [address] FYI Social History Tobacco Use Types Packs/Day [...] July 21, pt states is feeling fine, technical writer and editor ask pt if need a nurse to calk back technical writer and editor can do a triage but pt states feeling goodand just wanted to reported. Examination Grader advise pt if feels bad in any moment can call back and office can assist. documented in this encounter Plan of Treatment Not on file documented as of this encounter Visit Diagnoses Not on filedocumented in this encounter Additional Health Concerns Assessment Noted Time PHQ-9 Depression Total Score: 0 02/15/20 23 11:02 AM EDT documented as of this encounter Care Teams Speech Scientist Relationship Specialty Start Date End Date Freya Dalton MD [address] [place] [phone] PCP - General Family Medicine 09/15/13 documented as of this encounter
--- OUTSIDE RECORDS SUMMARY | 2024-10-28 11:19 | XMS_ITS | Encounter Summary ---
Author Organization [employer] Address [address] 7[address] [place] [address] Care Team Providers Care Piano Refinisher Name Role Phone Freya Dalton MD Primary Care Provider [phone] Reason for Visit * Reason Onset Date Comments Nurse Triage 08/04/2023 Encounter Details Date Type Department Care Team ([facility] Contact Info) Description 08/04/2023 Telephone [facility] [address] [place] [address] Freya Dalton MD [address] [place] [address] Nurse Triage Social History Tobacco Use Types [...] disposition, agrees to visit this week with [facility] team provider. Reviewed home care advise and reasons to call back. Protocol Used: Back Pain (Adult) Protocol-Based Disposition: See in Office or Video Visit within 3 Days Future Appointments Date Time Provider Department Center 08/06/2023 11:15 AM Vee Dudley MD [facility] 08/21/2023 11:[address] [facility] Video visit offer not recorded Positive Triage [...] documented as of this encounter Care Teams Piano Refinisher Relationship Specialty Start Date End Date Freya Dalton MD [address] [place] [phone] PCP - General Family Medicine 09/15/13 documented as of this encounter
--- OUTSIDE RECORDS SUMMARY | 2024-10-28 11:19 | XMS_ITS | Encounter Summary ---
Author Organization [employer] Address [address] 7t [place] [address] Care Team Providers Care Rn Family Name Role Phone Freya Dalton MD Primary Care Provider [phone] Encounter Details Date Type Department Care Team (Late st Contact Info) Description 09/11/2022 Orders Only [facility] MED[facility]INE [address] [place] [address] Freya Dalton MD [address] [place] [address] Hypertension, unspecified type Social History Tobacco Use [...] (04/17/2023 4:49 PM EDT) Color Urine Yellow [facility] Appearance Urine Clear [facility] PH 7.0 5.0 - 9.0 [facility] Glucose Urine UA Negative Negative mg/dL [facility] Urine Blood Negative Negative [facility] Specific [place] - Urine 1.010 1.005 - 1.025 [facility] Urine Protein Negative Neg-Trace mg/dL [facility] Urine Ketones Trace Negative mg/dL [facility] Nitrite Urine Negative Negative [facility] Leukocyte Esterase Urine Trace(A) Negative [facility] RBC Urine 0-2 0 - 2 /HPF [facility] Urine WBC 0-5 0 - 5 /HPF [facility] Urine Squamous Epithelial Cell 0-2 0 - 2 /HPF [facility] Urine Bacteria None Seen None Seen [facility] Hyaline Casts, Urine 0-2 0 - 2 /LPF [facility] 04/17/2023 4:49 PM EDT 04/17/2023 5:01 PM EDT Narrative [facility] - 04/17/2023 5:17 PM EDT [id number], Clean Catch us [facility] External Provider LAB URI NE ORDERABLES Final Result [facility] [address] [place] [address] [phone] * High Sensitivity Troponin I (04/17/2023 2:53 PM EDT) [facility] TROPONIN I HIGH SENSITIVITY <2.7 <3.5 - 17.0 ng/L [facility] Comment:The Wilkinson high sens itivity Troponin-I results should beused in conjunction with other diagnostic information suchas ECG, clinical observations and information, and patientsymptoms to aid in the diagnosis of [place]. 04/17/2023 2:53 PM EDT 04/17/2023 2:57 PM EDT [facility] External Provider LAB BLO OD ORDERABLES Final Result Performing Organization Address [facility] Co de Phone Number [facility] [address] [place] [phone] * Magnesium (04/17/2023 2:53 PM EDT) [facility] Magnesium 2.1 1.6 - 2.6 mg/dL [facility] 04/17/2023 2:53 PM EDT 04/17/2023 2:57 PM EDT [facility] External Data Provider LAB BLOOD ORDERAB LES Final Result Performing Organization Address [facility] de Phone Number [facility] [address] [place] [phone] * (ABNORMAL) Comprehensive Metabolic Panel (04/17/2023 2:53 PM EDT) [facility] Sodium 140 135 - 145 mmol/L [facility] Potassium 3.1(L) 3.3 - 5.1 mmol/L [facility] Chloride 103 96 - 108 mmol/L [facility] Carbon Dioxide 26 22 - 29 mmol/L [facility] Anion Gap 14 12 - 20 [facility] Urea Nitrogen (BUN) 15 9 - 16 mg/dL [facility] Creatinine, Serum 0.79 0.5 - 1.4 mg/dL [facility] Creatinine Clr Calc Pharmacy 95.7 [facility] Comment:Provided height and weight: 162.56 cm,92.079 kg.eGFR (calculated from the MDRD study equation) and eCrCl(calculated from the Cockcroft-Gault equation) are based ondifferent parameters and may not yield comparable results.If eCrCl result is absurd, please check patient'sheight/weight. Estimated Glomerular Filt Rate >60 [facility] Comment:NOTE: For -Am erican individuals, multiply the result by 1.210.Chronic Kidney Disease: Estimated GFR < 60 mL/min/1.36j5Uuorze Kidney Disease: Estimated GFR < 15 mL/min/1.73m2 Glucose 79 60 - 115 mg/dL [facility] Calcium 10.1 8.4 - 10.2 mg/dL [facility] Bilirubin, Total 0.5 0.0 - 1.0 mg/dL [facility] Aspartate Amino Transferase 13 5 - 31 U/L [facility] Alanine Aminotransferase 18 0 - 31 U/L [facility] Total Protein 7.6 6.5 - 8.0 g/dL [facility] Albumin Level 4.4 3.5 - 5.0 g/dL [facility] Alkaline Phosphatase 50 39 - 117 U/L [facility] 04/17/2023 2:53 PM EDT 04/17/2023 2:57 PM EDT us [facility] External Provider LAB BLO OD ORDERABLES Final Result [facility] [address] [place] [phone] * (ABNORMAL) CBC auto differential (04/17/2023 2:53 PM EDT) White Blood Count 11.3(H) 4.8 - 10.8 X10*3/uL [facility] Red Blood Count 5.26 4.20 - 5.50 X10*6/uL [facility] Hemoglobin 15.1 12.0 - 16.0 g/dl [facility] Hematocrit 44.7 37.0 - 47.0 % [facility] Mean Corpuscular Volume 85.0 80.0 - 98.0 fL [facility] Mean Corpuscular Hemoglobin 28.7 27.0 - 33.0 pg [facility] Mean Corpuscular HGB Conc 33.8 31.0 - 35.0 g/dl [facility] Red Cell Distribution Width 13.9 11.0 - 16.0 % [facility] Platelet Count 216 160 - 400 X10*3/uL [facility] Mean Platelet Volume 10.4 9.4 - 12.3 fL [facility] Neutrophils Percent Auto 53.2 45 - 73 % [facility] Imm Gran Pct Auto 0.9(H) 0.0 - 0.4 % [facility] Lymphocytes Percent Auto 38.5 20 - 40 % [facility] Monocytes Percent Auto 6.1 2 - 11 % [facility] Eosinophils Percent Auto 1.1 0 - 4 % [facility] Basophils Percent Auto 0.2 0 - 2 % [facility] NRBC Pct Auto 0.0 0.0 - 0.2 /100WBC [facility] Neutrophils Absolute Auto 6.0 2.0 - 8.3 x10*3/uL [facility] Imm Gran Abs Auto 0.10(H) 0.00 - 0.03 X10*3/uL [facility] Lymphocytes Absolute Auto 4.4 1.2 - 4.9 X10*3/uL [facility] Monocytes Absolute Auto 0.7 0.1 - 1.2 X10*3/uL [facility] Eosinophils Absolute Auto 0.1 0.0 - 0.4 X10*3/uL [facility] Basophils Absolute Auto 0.0 0.0 - 0.2 X10*3/uL [facility] NRBC Abs Auto 0.000 0.0 - 0.012 X10*3/uL [facility] 04/17/2023 2:53 PM EDT 04/17/2023 2:57 PM EDT us [facility] External Provider LAB BLO OD ORDERABLES Final Result [facility] [address] [place] [phone] documented in this encounter Visit Diagnoses Diagnosis Hypertension, unspecified type documented in this encounter Care Teams Rn Family Relationship Specialty Start Date End Date Freya Dalton MD [address] [place] [phone] PCP - General Family Medicine 09/15/13 documented as of this encounter
--- OUTSIDE RECORDS SUMMARY | 2024-10-28 11:19 | XMS_ITS | Encounter Summary ---
Author Organization [employer] Address [address] [facility] 7t [place] [address] Care Team Providers Care Spiral Binder Name Role Phone Freya Dalton MD Primary Care Provider [phone] Encounter Details Date Type Department Care Team (Latest Contact Info) Description 08/08/2020 Abstract [facility] CONVERSIONS Dental, Provider, DDS Social History Tobacco [...] on filedocumented in this encounter Care Teams Spiral Binder Relationship Specialty Start Date End Date Freya Dalton MD [address] [place] [phone] PCP - General Family Medicine 09/15/13 documented as of this encounter
--- OUTSIDE RECORDS SUMMARY | 2024-10-28 11:19 | XMS_ITS | Encounter Summary ---
Author Organization [employer] Address [address] [facility] 7t [place] [address] Care Team Providers Care Manager Photo Name Role Phone Freya Dalton MD Primary Care Provider [phone] Encounter Details Date Type Department Care Team ([facility] Contact Info) Description 02/10/2024 Orders Only [facility] [address] [place] [address] Provider, MD Sanjuana Social History Tobacco Use [...] documented as of this encounter Care Teams Manager Photo Relationship Specialty Start Date End Date Freya Dalton MD [address] [place] [address] PCP - General Family Medicine 09/15/13 documented as of this encounter
--- OUTSIDE RECORDS SUMMARY | 2024-10-28 11:19 | XMS_ITS | Encounter Summary ---
Author Organization [employer] Address [address] [facility] 7t [place] [address] Care Team Providers Care Casting Plug Assembler Name Role Phone Freya Dalton MD Primary Care Provider [phone] Reason for Visit * Reason Onset Date Comments XRAY ORDER 03/24/2024 Encounter Details Date Type Department Care Team ([facility] Contact Info) Description 03/24/2024 Telephone [facility] PEDS [address] [place] [address] Freya Dalton MD [address] [place] [address] XRAY ORDER Social History Tobacco Use Types [...] skin test [place]. Pt is requesting a chest xray instead [...] documented as of this encounter Care Teams Casting Plug Assembler Relationship Specialty Start Date End Date Freya Dalton MD [address] [place] [address] PCP - General Family Medicine 09/15/13 documented as of this encounter
--- OUTSIDE RECORDS SUMMARY | 2024-10-28 11:19 | XMS_ITS | Clinical Summary ---
Author Organization [employer] Address [address] [place] [address] 7t [place] [address] Care Team Providers Care Chief Deputy Sheriff Name Role Phone Freya Dalton MD Primary Care Provider [phone] Allergies Active Allergy Reactions Criticality Noted Date [...] Type Department Care Team Description 09/30/2024 Refill [facility] MED & PEDS [address] [place] [address] Freya Dalton MD Primary hypertension 09/28/[address] [facility] MED & PEDS [address] [place] [address] Padmini Weaver, RN Results 09/24/[address] [facility] MED & PEDS [address] [place] [address] Freya Dalton MD Primary hypertension (Primary Dx) 09/23/2024 9:00 AM EST Office Visit [facility] MED & PEDS [address] [place] [address] Freya Dalton MD Primary hypertension (Primary Dx); Thumb tendonitis; Encounter for annual wellness visit 09/23/2024 Travel 09/20/[address] [facility] MED & PEDS [address] [place] [address] Freya Dalton MD Chart Prep 09/16/[address] [facility] PEDS [address] [place] [address] Freya Dalton MD Pre-visit Planning (SDOH was completed on 09/13/2024) 09/13/[address] [facility] MED & PEDS [address] [place] [address] Freya Dalton MD Care Coordination (CHW outreach for SDOH PT-1 and food needs-referral completed /) 09/13/[address] [facility] MED & PEDS [address] [place] [address] Freya Dalton MD Pre-visit Planning (SDOH Screening [...] Bilirubin, Total 0.4 0.0 - 1.0 mg/dL [facility] Bilirubin, Direct 0.1 0.0 - 0.5 mg/dL [facility] Aspartate Amino Transferase 29 5 - 31 U/L [facility] Alanine Aminotransferase 31 0 - 31 U/L [facility] Total Protein 6.3(L) 6.5 - 8.0 g/dL [facility] Albumin Level 3.7 3.5 - 5.0 g/dL [facility] Alkaline Phosphatase 48 39 - 117 U/L [facility] Blood Venous blood specimen / Unknown 09/23/2024 10:00 AM EST 09/23/2024 2:00 PM EST Freya Dalton MD LAB BLOOD ORDERABLES Final Resul t Performing Organization Address City/[facility] Co de Phone Number [facility] [address] [place], [place] [phone] * (ABNORMAL) Lipid Panel, Standard (09/23/2024 10:00 AM EST) Triglycerides 198(H) <150 mg/dL [facility] Comment:Desirable Triglyceri de: less than 150 mg/dLBorderline High Triglyceride 150-199 mg/dLHigh Triglyceride: 200-499 mg/dLVery High Triglyceride: greater than or equal to 5OO mg/dL Cholesterol 117 <200 mg/dL [facility] Comment:Desirable Cholestero l: less than 200 mg/dLBorderline High Cholesterol: 200-239 mg/dLHigh Cholesterol: greater than 239 mg/dL LDL Cholesterol Calculated 38 <100 mg/dL [facility] Comment:Desirable LDL: less than 100 mg/dLNear Optimal/Above Optimal LDL: 110- 129 mg/dLBorderline High LDL: 130-159 mg/dLHigh LDL: 160-189 mg/dLVery High LDL: greater than or equal to 190 mg/dL HDL Cholesterol 40(L) >40 mg/dL [facility] Comment:Desirable HDL: great er than 40 mg/dL Note: This HDL assay may give artificially low results in patients with liver disease. Blood Venous blood specimen / Unknown 09/23/2024 10:00 AM EST 09/23/2024 2:00 PM EST Freya Dalton MD LAB BLOOD ORDERABLES Final Resul t Performing Organization Address City/[facility] de Phone Number [facility] [address] [place] [phone] [phone] * (ABNORMAL) Basic Metabolic Panel (09/23/2024 10:00 AM EST) Sodium 140 135 - 145 mmol/L [facility] Potassium 4.3 3.3 - 5.1 mmol/L [facility] Chloride 111(H) 96 - 108 mmol/L [facility] Carbon Dioxide 23 22 - 29 mmol/L [facility] Anion Gap 10(L) 12 - 20 [facility] Urea Nitrogen (BUN) 46(H) 9 - 16 mg/dL [facility] Creatinine, Serum 1.38 0.5 - 1.4 mg/dL [facility] Estimated Glomerular Filt Rate 40 [facility] Comment:Chronic Kidney Disea se: Estimated GFR < 60 mL/min/[id number] Kidney Disease: Estimated GFR < 15 mL/min/1.73m2 Glucose 111 60 - 115 mg/dL [facility] Calcium 8.6 8.4 - 10.2 mg/dL [facility] Blood Venous blood specimen / Unknown 09/23/2024 10:00 AM EST 09/23/2024 2:00 PM EST us Freya Dalton MD LAB BLOOD ORDERABLES Final Resul t Performing Organization Address [facility] Co de Phone Number [facility] [address] [place] [phone] [phone] * BI Mammogram Screening Bilateral (02/10/2024 2:52 PM EDT) Anatomical Region Laterality Modality Breast Bilateral Mammography us Historical Provider IMG BI PROCEDURES Final R esult * HIV-1 RNA, Quantitative, Real-Time PCR with Reflex to Genotype (RTI, PI, Integrase) (02/18/2023 9:40 AM EDT) HIV 1 RNA, QN PCR NOT DETECTED copies/mL [facility], HIV 1 RNA, QN PCR NOT DETECTED Log copies/mL [facility], Comment: REFERENCE RANGE: NOT DETECTED copies/mL ?NOT DETECTED ??Log copies/mL This test was performed using Real-Time Polymerase Chain Reaction. Reportable range is 20 to 10,000,000 copies/mL (1.30-7.00 Log copies/mL). 02/18/2023 9:40 AM EDT 02/18/2023 9:41 AM EDT Result [facility] us Freya Dalton MD LAB BLOOD ORDERABLES Final Resul t Performing Organization Address [facility] de Phone Number [address], [facility] [place] [phone] [facility], [address] [place] [phone] * Hepatitis C Antibody with Reflex to HCV, RNA, Quantitative, Real-Time PCR (02/18/2023 9:40 AM EDT) Hepatitis C Antibody NON-REACT ROCHELLE NON-REACT ROCHELLE [email or web address] Index 0.10 <1.00 [email or web address] Comment: HCV antibody was non-reactive. There is no laboratory evidence of HCV infection. In most cases, no further action is required. However, if recent HCV exposure is suspected, a test for HCV RNA (test code 95018) is suggested. For additional information please refer to http://education.[employer].HipLink/faq/QNG85k7 (This link is being provided for informational/ educational purposes only.) Blood Venous blood specimen / Unknown 02/18/2023 9:40 AM EDT 02/18/2023 9:41 AM EDT Result Ashish Dalton MD LAB BLOOD ORDERABLES Final Resul t Performing Organization Address [facility] Co de Phone Number [address], [place] [address] [facility] [address] [place] [phone] * Colonoscopy (07/03/2018) Colonoscopy Normal Normal us Historical Provider HEALTH MAINTENANCE Final Result from Last 3 Months or Most Recently Relevant to Health Maintenance Insurance Care Teams Chief Deputy Sheriff Relationship Specialty Start Date End Date Freya Dalton MD [address] [place] [address] [place] [address] PCP - General Family Medicine 09/15/13
--- OUTSIDE RECORDS SUMMARY | 2024-10-28 11:19 | XMS_ITS | Encounter Summary ---
Author Organization [employer] Address [address] [place] [address] Care Team Providers Care Improvement Nurse Name Role Phone Freya Dalton MD Primary Care Provider [phone] Reason for Visit * Reason Comments Med Refill Encounter Details Date Type Department Care Team ([facility] Contact Info) Description 09/30/2024 Refill [facility] MED & PEDS [address] [place] [address] Freya Dalton MD [address] [place] [address] Primary hypertension Social History Tobacco Use Types [...] documented as of this encounter Care Teams Improvement Nurse Relationship Specialty Start Date End Date Freya Dalton MD [address] [place] [phone] PCP - General Family Medicine 09/15/13 documented as of this encounter
--- OUTSIDE RECORDS SUMMARY | 2024-10-28 11:19 | XMS_ITS | Encounter Summary ---
Author Organization [employer] Address [address] [facility] [address] [place] [address] Care Team Providers Care Exercise Equipment Repair Technician Name Role Phone Freya Dalton MD Primary Care Provider [phone] Reason for Visit * Reason Onset Date Comments Results 09/28/2024 Encounter Details Date Type Department Care Team ([facility] Contact Info) Description 09/28/2024 Telephone [facility] MED & PEDS [address] [place] [address] Padmini Weaver RN Results Social History Tobacco [...] documented as of this encounter Care Teams Exercise Equipment Repair Technician Relationship Specialty Start Date End Date Freya Dalton MD [address] [place] [address] PCP - General Family Medicine 09/15/13 documented as of this encounter
[2024-10-28 18:19] LABS: Anion Gap 13 (12-20); Blood Urea Nitrogen 18 mg/dL (9-16); Calcium 9.6 mg/dL (8.4-10.2); Carbon Dioxide 26 mmol/L (22-29); Chloride 105 mmol/L (96-108); Estimated Glomerular Filt Rate > 60; Potassium 3.8 mmol/L (3.3-5.1); Sodium 140 mmol/L (135-145)
[2024-10-28 18:30] LABS: Appearance Urine Turbid; Color Urine Dark Yellow; Creatinine Urine 177.36 mg/dL; Glucose Urine UA Negative (Negative); Leukocyte Esterase Urine Small (1+) (Negative); Nitrite Urine Negative (Negative); Specific Gravity - Urine >= 1.030 (1.005-1.025); Total Protein Urine Random 17 mg/dL (<12); UMIC TRIGGER UA YES; Urine Blood Negative (Negative); Urine Ketones Trace mg/dL (Negative); Urine Protein Trace mg/dL (Neg-Trace)
[2024-10-28 19:55] LABS: Bacteria Urine None Seen (None Seen); Hyaline Casts Urine 0-2 /LPF (0-2); RBC Urine 0-2 /HPF (0-2); Squamous Epithelial Cell Urine 0-2 /HPF (0-2); WBC Urine 0-5 /HPF (0-5)
[2024-10-29 08:20] LABS: HBc Num1 0.15 S/CO (0.00-0.79); Hepatitis B Core Antibody Nonreactive (Nonreactive); Hepatitis B Surface Antigen Negative (Negative)
[2024-10-30 08:24] LABS: Complement C3 177 mg/dL (83-193)
[2024-10-31 09:44] LABS: Anti Nuclear Antibody Screen NEGATIVE (NEGATIVE)
[2024-11-01 12:34] LABS: IgA 90 mg/dL (47-310); IgG 1611 mg/dL (600-1640); IgM 168 mg/dL (50-300)
[2024-11-02 16:59] LABS: Anti DNA DS Antibody <1 IU/mL; Anti Glomerular Basement Memb <1.0 AI; Antibody to SS-A Antigen <1.0 NEG AI (<1.0 NEG); Antibody to SS-B Antigen <1.0 NEG AI (<1.0 NEG); JO 1 Antibody <1.0 NEG AI (<1.0 NEG); Myeloperoxidase Antibody <1.0 AI; Proteinase 3 PR3 Antibodies <1.0 AI; SM/Ribonucleoprotein Ab <1.0 NEG AI (<1.0 NEG); Scleroderma 70 Antibody <1.0 NEG AI (<1.0 NEG); Smith Protein <1.0 NEG AI (<1.0 NEG)
[2024-11-03 22:43] LABS: Phospholipase A2 IgG ELISA <4 RU/mL; Phospholipase A2 IgG IFA NEGATIVE (NEGATIVE)
== END 2024-10-28 09:43 | disposition home or self-care (01) ==
LOC: HO.HKASLDS 09:42
PROVIDERS: PCP Student in an Organized Health Care Education/Training Program; Referring Provider Student in an Organized Health Care Education/Training Program; Visit Provider Internal Medicine Nephrology
DX: I10 Essential (primary) hypertension (principal); N17.9 Acute kidney failure, unspecified; N20.0 Calculus of kidney
CPT/HCPCS: 36415; 80051; 81001; 82310; 82565; 82570; 82784; 83520; 84156; 84520; 86021; 86038; 86160; 86225; 86235; 86255; 86334; 86704; 87340; 99202

== ENCOUNTER 2024-10-28 09:42 | Outpatient (AMB) | payer OTHER, SELFPAY ==
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
[2024-10-28 09:48] VITALS: BP 122/88; PULSE 64; O2SAT 99; BMI 38.1
--- OUTSIDE RECORDS SUMMARY | 2024-10-28 10:31 | XMS_ITS | Clinical Summary ---
Author Organization [employer] Address [address] [place] [address] [address] [place] [address] Care Team Providers Care Plush Finisher Name Role Phone Freya Dalton MD Primary Care Provider [phone] Allergies Active Allergy Reactions Criticality Noted Date Comments Latex 06/04/2021 Other reaction(s): rash Medications verapamil SR (Calan SR) 120 MG ER tablet Take 120 mg by mouth in the morning. 023 Active fluticasone (Flovent HFA) 220 MCG/ACT inhaler Inhale 1 puff every 12 (twelve) hours. 022 Active Flovent Diskus 50 MCG/ACT aerosol powder INHALE ONE PUFF TWICE DAILY, RINSE MOUTH AFTER USE 023 Active butalbital-acet aminophen-caffe ine 50-325-40 MG tablet TAKE TWO TABLETS BY MOUTH AT ONSET of HEADACHE, EVERY 8 HOURS NEEDED 023 Active clobetasol (Temovate) 0.05 % ointment Apply to the affected area(s) of hands once daily 023 Active Eucrisa 2 % ointment APPLY TO THE AFFECTED AREA(S) TWICE DAILY 023 Active [address]ilant [address] capsule Take 1 capsule by mouth in the morning. 023 Active docusate sodium (Colace) 100 MG capsule Take 100 mg by mouth in the morning. 023 Active EPINEPHrine (Epipen) 0.3 MG/0.3ML injection syringe INJECT INTRAMUSCULARLY DIRECTED ON PACKAGE 023 Active Diclofenac Sodium (Voltaren) 1 % gel Use topical BID 100 g 3 024 Active losartan (Cozaar) 25 MG tabletIndicatio ns:Primary hypertension TAKE ONE TABLET EVERY MORNING 90 tablet 3 024 Active meloxicam (Mobic) 7.5 MG tablet Take 1 tablet (7.5 mg) by mouth Once per day. 30 tablet 11 024 2024 Active Omeprazole 20 MG tablet delayed-release Take 20 mg by mouth Once per day. 30 tablet 3 024 2024 Active albuterol (ProAir HFA) 108 (90 Base) MCG/ACT inhaler Inhale 2 puffs in the morning, at noon, in the evening, and at bedtime. 8.5 g 3 025 Active hydroCHLOROthia zide (HYDRODiuril) 25 MG tabletIndicatio ns:Primary hypertension TAKE ONE TABLET EVERY DAY 90 tablet 1 025 Active hydroCHLOROthia zide (HYDRODiuril) 25 MG tabletIndicatio ns:Primary hypertension TAKE ONE TABLET EVERY DAY 90 tablet 1 024 2024 Discontinued Active Problems Problem Noted Date Diagnosed Date Primary hypertension 12/02/2023 Hypokalemia 04/21/2023 Assessment & Plan (04/21/2023 10:22 AM EDT): Will send labs to check levels. Vague bodily discomfort 04/21/2023 Assessment & Plan (04/21/2023 10:23 AM EDT): Will send labs and schedule follow up with PCP. Class 1 obesity due to exces s calories without serious comorbidity with body mass index (BMI) of 34.0 to 34.9 in adult 04/21/2023 IBS (irritable bowel syndrome) 04/20/2023 AB (asthmatic bronchitis), mild intermittent, un complicated 09/26/2022 Hiatal hernia 03/20/2022 Allergic rhinitis due to pollen 02/23/2018 Migraine 04/02/2013 Eczema 06/09/2012 Encounters Date Type Department Care Team Description 09/30/2024 Refill [facility] [address] [place] [address] Freya Dalton MD Primary hypertension 09/28/2024 Telephone [facility] [address] [place] [address] Padmini Weaver, RN Results 09/24/2024 Orders Only [facility] [address] [place] [address] Freya Dalton MD Primary hypertension (Primary Dx) 09/23/2024 9:00 AM EST Office Visit [facility] [address] [place] [address] Freya Dalton MD Primary hypertension (Primary Dx); Thumb tendonitis; Encounter for annual wellness visit 09/23/2024 Travel 09/20/2024 Telephone [facility] [address] [place] [address] Freya Dalton MD Chart Prep 09/16/2024 Patient Outreach [facility] [address] [place] [address] Freya Dalton MD Pre-visit Planning (SDOH was completed on 09/13/2024) 09/13/2024 Patient Outreach [facility] [address] [place] [address] Freya Dalton MD Care Coordination ([facility] outreach for SDOH PT-1 and food needs-referral completed /) 09/13/2024 Patient Outreach [facility] [address] [place] [address] Freya Dalton MD Pre-visit Planning (SDOH Screening positive and Tobacco screening negative) from Last 3 Months Immunizations Name Administration Dates Next Due Influenza injectable quadriv alent IIV4 with preservative 07/16/2019,06/29/2018,05/30/2016 Influenza injectable quadriv alent preservative free 05/29/2023,07/02/2022,06/04/2021,2016,06/23/2015 Influenza, IIV3, injectable 06/27/2014 Influenza, Split (incl. den fied surface antigen) 07/07/2013,06/09/2012 Moderna Covid-19 Vaccine 12+ 07/08/2021 Pfizer Covid-19 Vaccine 12+ 07/08/2021 Pfizer Covid-19 Vaccine 12+ dorothy-sucrose (Taylor Cap) 07/08/2021 Tdap 01/24/2016 Social History Tobacco Use Types Packs/Day Years Used Date Smoking Tobacco: Never Passive Smoke Exposure: Never Smokeless Tobacco: Never Tobacco Cessation:Counseling Given: Not Answered Alcohol Use Standard Drinks/Week Comments Never 0 (1 standard drink = 0.6 oz pur e alcohol) Depression Answer Date Recorded Patient Health Questionnaire-9 Score 2 09/23/2024 Patient Health Questionnaire-9 Score 2 09/23/2024 Last PHQ-9: Questionnaire Data Not on file 0 09/23/2024 Housing Stability Answer Date Recorded What is your housing situation today? I have remy nguyễn 09/13/[address] you li ve. Do you have problems with any of the following? None of the above 09/13/2024 Food Insecurity Answer Date Recorded Within the past 12 months, y ou worried that your food would run out before you got money to buy more: Never True 09/23/2024 Within the past 12 months,th e food you bought just didn't last and you didn't have enough money to get more: Never True Transportation Answer Date Recorded In the past 12 months, has l ack of transportation kept you from medical appts, meetings, work or from getting things needed for daily living? No 09/13/2024 Utilities Answer Date Recorded In the past 12 months, has t he electric, gas, oil or water company threatened to shut off services in your home? No 09/23/2024 Depression Answer Date Recorded Patient Health Questionnaire-2 Score 0 09/23/2024 Internet Access Answer Date Recorded Internet Access Q1 No 09/23/2024 Internet Access Q2 I do not want or need it 09/08 Comments No Sex and Gender Information Value Date Recorded Sex Assigned at Female 07/08/2022 10:17 AM EDT Legal Sex Female 10:17 AM EDT Gender Identity Female 07/08/2022 10:17 AM EDT Sexual Orientation Straight 07/08/2022 10 :17 AM EDT Last Filed Vital Signs Vital Sign Reading Time Taken Comments Blood Pressure 141/77 09/23/2024 9:20 AM EST Pulse 68 09/23/2024 9:20 AM EST Temperature 36.6 ??C (97.9 ??F) 09/23/2024 9:20 AM ES T Respiratory Rate 18 09/23/2024 9:20 AM EST Oxygen Saturation 100% 03/23/2024 2:22 PM EDT Inhaled Oxygen Concentration - - Weight 102 kg (224 lb) 09/23/2024 9:20 AM EST Height 163.2 cm (5' 4.25 ) 09/23/2024 9:20 AM ES T Body Mass Index 38.15 09/23/2024 9:20 AM EST Plan of Treatment Health Maintenance Due Date Last Done Comments CT Colonography 1974 FIT DNA/Cologuard 1974 FIT 1974 FOBT 1974 Sigmoidoscopy 1974 Alcohol/Substance Use Screening 1986 Family Planning (PISQ) 1989 Hepatitis B Vaccines (1 of 3 - 19+ 3-dose series) 1993 Pneumococcal Vaccine: 50+ Years (1 of 2 - PCV) 1993 Influenza Vaccine (#1) 2024 , 07/02/2022, 06/04/2021, Additional history exists Zoster Vaccines (1 of 2) 2024 COVID-19 Vaccine ( season) 2025 07/08/2021, 07/08/2021, 07/08/2021 Postponed from 05/09/2024 (Patient Refused) Depression Screening 09/23/2025 09/23/2024, 09/23/19 25 SDOH Screening 09/23/2025 09/23/2024 Tobacco Screening 09/23/2025 09/23/2024 DTaP/Tdap/Td Vaccines (2 - Td or Tdap) 01/23/2026 01/24/2016 Mammogram 02/09/2026 02/10/2024 Colonoscopy 07/03/2028 07/03/2018 Colorectal Cancer Screening 07/03/2028 Lipid Panel 09/23/2029 09/23/2024, 02/06, 02/18/2023, Additional history exists RSV Patients and Patients Aged 60 years or older (1 - 1-dose 75+ series) 2049 HIV Screening Completed 02/18/2023 Hepatitis C Screening Completed 02/18/2023 HIB Vaccines Aged Out No longer eligi ble based on patient's age to complete this topic HPV Vaccines Aged Out No longer eligi ble based on patient's age to complete this topic Hepatitis A Vaccines Aged Out No long er eligible based on patient's age to complete this topic IPV Vaccines Aged Out No longer eligi ble based on patient's age to complete this topic Meningococcal Vaccine Aged Out No brenda martha eligible based on patient's age to complete this topic RSV under 20 months Aged Out No longe r eligible based on patient's age to complete this topic Rotavirus Vaccines Aged Out No longer eligible based on patient's age to complete this topic Procedures Procedure Name Priority Date/Time Associated Diagnosis Comments HEPATIC FUNCTION PANEL Routine 09/23/2024 10:00 AM EST Primary hypertension LIPID PANEL, STANDARD Routine 09/23/2024 10:00 AM EST Primary hypertension BASIC METABOLIC PANEL Routine 09/23/2024 10:00 AM EST Primary hypertension BI MAMMOGRAM SCREENING BILATERAL Routine 02/10/2024 2:52 PM EDT HEPATITIS C AB W/REFL TO HCV RNA, QN, PCR Routine 02/18/2023 9:40 AM EDT PE (physical exam), annual HIV 1 RNA, QN PCR W/RFL WENDIE (RTI,PI,INTEGRASE) Routine 02/18/2023 9:40 AM EDT PE (physical exam), annual HM COLONOSCOPY Routine 07/03/2018 from Last 3 Months or Most Recently Relevant to Health Maintenance Results * (ABNORMAL) Hepatic Function Panel (09/23/2024 10:00 AM EST) Bilirubin, Total 0.4 0.0 - 1.0 mg/dL [facility] Bilirubin, Direct 0.1 0.0 - 0.5 mg/dL [facility] Aspartate Amino Transferase 29 5 - 31 U/L [facility] Alanine Aminotransferase 31 0 - 31 U/L [facility] Total Protein 6.3(L) 6.5 - 8.0 g/dL [facility] Albumin Level 3.7 3.5 - 5.0 g/dL [facility] Alkaline Phosphatase 48 39 - 117 U/L [facility] Blood Venous blood specimen / Unknown 09/23/2024 10:00 AM EST 09/23/2024 2:00 PM EST Freya Dalton MD LAB BLOOD ORDERABLES Final Resul t Performing Organization Address City/[facility] Co de Phone Number [facility] [address] [place], [place] [phone] * (ABNORMAL) Lipid Panel, Standard (09/23/2024 10:00 AM EST) Triglycerides 198(H) <150 mg/dL [facility] Comment:Desirable Triglyceri de: less than 150 mg/dLBorderline High Triglyceride 150-199 mg/dLHigh Triglyceride: 200-499 mg/dLVery High Triglyceride: greater than or equal to 5OO mg/dL Cholesterol 117 <200 mg/dL [facility] Comment:Desirable Cholestero l: less than 200 mg/dLBorderline High Cholesterol: 200-239 mg/dLHigh Cholesterol: greater than 239 mg/dL LDL Cholesterol Calculated 38 <100 mg/dL [facility] Comment:Desirable LDL: less than 100 mg/dLNear Optimal/Above Optimal LDL: 110- 129 mg/dLBorderline High LDL: 130-159 mg/dLHigh LDL: 160-189 mg/dLVery High LDL: greater than or equal to 190 mg/dL HDL Cholesterol 40(L) >40 mg/dL [facility] Comment:Desirable HDL: great er than 40 mg/dL Note: This HDL assay may give artificially low results in patients with liver disease. Blood Venous blood specimen / Unknown 09/23/2024 10:00 AM EST 09/23/2024 2:00 PM EST Freya Dalton MD LAB BLOOD ORDERABLES Final Resul t Performing Organization Address City/[facility] de Phone Number [facility] [address] [place] [address] [phone] * (ABNORMAL) Basic Metabolic Panel (09/23/2024 10:00 AM EST) Sodium 140 135 - 145 mmol/L [facility] Potassium 4.3 3.3 - 5.1 mmol/L [facility] Chloride 111(H) 96 - 108 mmol/L [facility] Carbon Dioxide 23 22 - 29 mmol/L [facility] Anion Gap 10(L) 12 - 20 [facility] Urea Nitrogen (BUN) 46(H) 9 - 16 mg/dL [facility] Creatinine, Serum 1.38 0.5 - 1.4 mg/dL [facility] Estimated Glomerular Filt Rate 40 [facility] Comment:Chronic Kidney Disea se: Estimated GFR < 60 mL/min/[id number] Kidney Disease: Estimated GFR < 15 mL/min/1.73m2 Glucose 111 60 - 115 mg/dL [facility] Calcium 8.6 8.4 - 10.2 mg/dL [facility] Blood Venous blood specimen / Unknown 09/23/2024 10:00 AM EST 09/23/2024 2:00 PM EST us Freya Dalton MD LAB BLOOD ORDERABLES Final Resul t Performing Organization Address [facility] Co de Phone Number [facility] [address] [place] [address] [phone] * BI Mammogram Screening Bilateral (02/10/2024 2:52 PM EDT) Anatomical Region Laterality Modality Breast Bilateral Mammography us Historical Provider IMG BI PROCEDURES Final R esult * HIV-1 RNA, Quantitative, Real-Time PCR with Reflex to Genotype (RTI, PI, Integrase) (02/18/2023 9:40 AM EDT) HIV 1 RNA, QN PCR NOT DETECTED copies/mL [facility], HIV 1 RNA, QN PCR NOT DETECTED Log copies/mL [facility], Comment: REFERENCE RANGE: NOT DETECTED copies/mL ?NOT DETECTED ??Log copies/mL This test was performed using Real-Time Polymerase Chain Reaction. Reportable range is 20 to 10,000,000 copies/mL (1.30-7.00 Log copies/mL). 02/18/2023 9:40 AM EDT 02/18/2023 9:41 AM EDT Result [facility] us Freya Dalton MD LAB BLOOD ORDERABLES Final Resul t Performing Organization Address [facility] de Phone Number [address], [facility] [place] [address] [facility], [address] [place] [address] * Hepatitis C Antibody with Reflex to HCV, RNA, Quantitative, Real-Time PCR (02/18/2023 9:40 AM EDT) Hepatitis C Antibody NON-REACT ROCHELLE NON-REACT ROCHELLE [employer] [place] [employer] Index 0.10 <1.00 [facility] Comment: HCV antibody was non-reactive. There is no laboratory evidence of HCV infection. In most cases, no further action is required. However, if recent HCV exposure is suspected, a test for HCV RNA (test code 99967) is suggested. For additional information please refer to [email or web address]/faq/MKD65e3 (This link is being provided for informational/ educational purposes only.) Blood Venous blood specimen / Unknown 02/18/2023 9:40 AM EDT 02/18/2023 9:41 AM EDT Result Ashish Dalton MD LAB BLOOD ORDERABLES Final Resul t Performing Organization Address [facility] Co de Phone Number [address], [place] [address] [facility] [address] [place] [address] * Colonoscopy (07/03/2018) Colonoscopy Normal Normal us Historical Provider HEALTH MAINTENANCE Final Result from Last 3 Months or Most Recently Relevant to Health Maintenance Insurance Care Teams Plush Finisher Relationship Specialty Start Date End Date Freya Dalton MD [address] [place] [address] [place] [phone] PCP - General Family Medicine 09/15/13
--- OUTSIDE RECORDS SUMMARY | 2024-10-28 10:31 | XMS_ITS | Encounter Summary ---
Author Organization [employer] Address [address] [facility] [address] 7[address] [place] [address] Care Team Providers Care Snuff Grinder And Screener Name Role Phone Freya Dalton MD Primary Care Provider Reason for Visit * Reason Onset Date Comments Results 09/28/2024 Encounter Details Date Type Department Care Team ([facility] Contact Info) Description 09/28/2024 Telephone [facility] MED & PEDS [address] [place] [address] Padmini Weaver RN Results Social History Tobacco Use Types Packs/Day Years Used Date Smoking Tobacco: Never Passive Smoke Exposure: Never Smokeless Tobacco: Never Alcohol Use Standard Drinks/Week Comments Never 0 [...] Orientation Straight 07/08/2022 10 :17 AM EDT documented as of this encounter Miscellaneous Notes * Telephone Encounter - Padmini Weaver RN - 09/28/2024 9:23 AM EST TC placed to pt to inform of Dr. Dalton's message below regarding lab results. Pt advised of referral to nephrology that was placed due to kidney function levels. Pt stated understanding and had no further questions ----- Message from Freya Dalton MD sent at 09/24/2024 8:41 AM EST ----- Kidney functions out of range.Referred to Nephro. documented in this encounter Plan of Treatment Not on file documented as of this encounter Visit Diagnoses Not on filedocumented in this encounter Additional Health Concerns Assessment Noted Time PHQ-9 Depression Total Score: 2 09/23/19 25 9:22 AM EST documented as of this encounter Care Teams Snuff Grinder And Screener Relationship Specialty Start Date End Date Freya Dalton MD [address] [place] [address] PCP - General Family Medicine 09/15/13 documented as of this encounter
--- OUTSIDE RECORDS SUMMARY | 2024-10-28 10:31 | XMS_ITS | Encounter Summary ---
Author Organization [employer] Address [address] [facility] [address] 7[address] [place] [address] Care Team Providers Care Bottom Liner Name Role Phone Freya Dalton MD Primary Care Provider [phone] Encounter Details Date Type Department Care Team (Late st Contact Info) Description 09/11/2022 Orders Only [facility] MEDICINE [address] [place] [address] Freya Dalton MD [address] [place] [address] Hypertension, unspecified type Social History Tobacco Use Types Packs/Day Years Used Date Smoking Tobacco: Never Assessed Comments Unknown Sex and Gender Information Value Date Recorded Sex Assigned at Female 07/08/2022 10:17 AM EDT Legal Sex Female 10:17 AM EDT Gender Identity Female 07/08/2022 10:17 AM EDT Sexual Orientation Straight 07/08/2022 10 :17 AM EDT COVID-19 Exposure Response Date Recorded In the last 10 days, have yo u been in contact with someone who was confirmed or suspected to have Coronavirus/COVID-19? No / Unsure 09/05/2022 10:00 AM EST documented as of this encounter Plan of Treatment Not on file documented as of this encounter Procedures Procedure Name Priority Date/Time Associated Diagnosis Comments URINALYSIS, COMPLETE, WITH REFLEX TO CULTURE Routine 04/17/2023 4:49 PM EDT Hypertension, unspecified type HIGH SENSITIVITY TROPONIN I Routine 04/17/2023 2:53 PM EDT Hypertension, unspecified type CBC WITH AUTO DIFFERENTIAL Routine 04/17/2023 2:53 PM EDT Hypertension, unspecified type MAGNESIUM Routine 04/17/2023 2:53 PM EDT Hypertension, unspecified type COMPREHENSIVE METABOLIC PANEL Routine 04/17/2023 2:53 PM EDT Hypertension, unspecified type documented in this encounter Results * (ABNORMAL) Urinalysis, Complete, with Reflex to Culture (04/17/2023 4:49 PM EDT) Color Urine Yellow [facility] Appearance Urine Clear [facility] PH 7.0 5.0 - 9.0 [facility] Glucose Urine UA Negative Negative mg/dL [facility] Urine Blood Negative Negative [facility] Specific [place] - Urine 1.010 1.005 - 1.025 [facility] Urine Protein Negative Neg-Trace mg/dL [facility] Urine Ketones Trace Negative mg/dL [facility] Nitrite Urine Negative Negative [facility] Leukocyte Esterase Urine Trace(A) Negative [facility] RBC Urine 0-2 0 - 2 /HPF [facility] Urine WBC 0-5 0 - 5 /HPF [facility] Urine Squamous Epithelial Cell 0-2 0 - 2 /HPF [facility] Urine Bacteria None Seen None Seen [facility] Hyaline Casts, Urine 0-2 0 - 2 /LPF [facility] 04/17/2023 4:49 PM EDT 04/17/2023 5:01 PM EDT Narrative [facility] - 04/17/2023 5:17 PM EDT [id number], Clean Catch us [facility] External Provider LAB URI NE ORDERABLES Final Result [facility] [address] [place] [address] [phone] * High Sensitivity Troponin I (04/17/2023 2:53 PM EDT) [facility] TROPONIN I HIGH SENSITIVITY <2.7 <3.5 - 17.0 ng/L [facility] Comment:The Wilkinson high sens itivity Troponin-I results should beused in conjunction with other diagnostic information suchas ECG, clinical observations and information, and patientsymptoms to aid in the diagnosis of [place]. 04/17/2023 2:53 PM EDT 04/17/2023 2:57 PM EDT [facility] External Provider LAB BLO OD ORDERABLES Final Result Performing Organization Address [facility] Co de Phone Number [facility] [address] [place] [phone] * Magnesium (04/17/2023 2:53 PM EDT) [facility] Magnesium 2.1 1.6 - 2.6 mg/dL [facility] 04/17/2023 2:53 PM EDT 04/17/2023 2:57 PM EDT [facility] External Data Provider LAB BLOOD ORDERAB LES Final Result Performing Organization Address [facility] de Phone Number [facility] [address] [place] [phone] * (ABNORMAL) Comprehensive Metabolic Panel (04/17/2023 2:53 PM EDT) [facility] Sodium 140 135 - 145 mmol/L [facility] Potassium 3.1(L) 3.3 - 5.1 mmol/L [facility] Chloride 103 96 - 108 mmol/L [facility] Carbon Dioxide 26 22 - 29 mmol/L [facility] Anion Gap 14 12 - 20 [facility] Urea Nitrogen (BUN) 15 9 - 16 mg/dL [facility] Creatinine, Serum 0.79 0.5 - 1.4 mg/dL [facility] Creatinine Clr Calc Pharmacy 95.7 [facility] Comment:Provided height and weight: 162.56 cm,92.079 kg.eGFR (calculated from the MDRD study equation) and eCrCl(calculated from the Cockcroft-Gault equation) are based ondifferent parameters and may not yield comparable results.If eCrCl result is absurd, please check patient'sheight/weight. Estimated Glomerular Filt Rate >60 [facility] Comment:NOTE: For -Am erican individuals, multiply the result by 1.210.Chronic Kidney Disease: Estimated GFR < 60 mL/min/1.84m8Cvxjbe Kidney Disease: Estimated GFR < 15 mL/min/1.73m2 Glucose 79 60 - 115 mg/dL [facility] Calcium 10.1 8.4 - 10.2 mg/dL [facility] Bilirubin, Total 0.5 0.0 - 1.0 mg/dL [facility] Aspartate Amino Transferase 13 5 - 31 U/L [facility] Alanine Aminotransferase 18 0 - 31 U/L [facility] Total Protein 7.6 6.5 - 8.0 g/dL [facility] Albumin Level 4.4 3.5 - 5.0 g/dL [facility] Alkaline Phosphatase 50 39 - 117 U/L [facility] 04/17/2023 2:53 PM EDT 04/17/2023 2:57 PM EDT us [facility] External Provider LAB BLO OD ORDERABLES Final Result [facility] [address] [place] [phone] * (ABNORMAL) CBC auto differential (04/17/2023 2:53 PM EDT) White Blood Count 11.3(H) 4.8 - 10.8 X10*3/uL [facility] Red Blood Count 5.26 4.20 - 5.50 X10*6/uL [facility] Hemoglobin 15.1 12.0 - 16.0 g/dl [facility] Hematocrit 44.7 37.0 - 47.0 % [facility] Mean Corpuscular Volume 85.0 80.0 - 98.0 fL [facility] Mean Corpuscular Hemoglobin 28.7 27.0 - 33.0 pg [facility] Mean Corpuscular HGB Conc 33.8 31.0 - 35.0 g/dl [facility] Red Cell Distribution Width 13.9 11.0 - 16.0 % [facility] Platelet Count 216 160 - 400 X10*3/uL [facility] Mean Platelet Volume 10.4 9.4 - 12.3 fL [facility] Neutrophils Percent Auto 53.2 45 - 73 % [facility] Imm Gran Pct Auto 0.9(H) 0.0 - 0.4 % [facility] Lymphocytes Percent Auto 38.5 20 - 40 % [facility] Monocytes Percent Auto 6.1 2 - 11 % [facility] Eosinophils Percent Auto 1.1 0 - 4 % [facility] Basophils Percent Auto 0.2 0 - 2 % [facility] NRBC Pct Auto 0.0 0.0 - 0.2 /100WBC [facility] Neutrophils Absolute Auto 6.0 2.0 - 8.3 x10*3/uL [facility] Imm Gran Abs Auto 0.10(H) 0.00 - 0.03 X10*3/uL [facility] Lymphocytes Absolute Auto 4.4 1.2 - 4.9 X10*3/uL [facility] Monocytes Absolute Auto 0.7 0.1 - 1.2 X10*3/uL [facility] Eosinophils Absolute Auto 0.1 0.0 - 0.4 X10*3/uL [facility] Basophils Absolute Auto 0.0 0.0 - 0.2 X10*3/uL [facility] NRBC Abs Auto 0.000 0.0 - 0.012 X10*3/uL [facility] 04/17/2023 2:53 PM EDT 04/17/2023 2:57 PM EDT us [facility] External Provider LAB BLO OD ORDERABLES Final Result [facility] [address] [place] [phone] [phone] documented in this encounter Visit Diagnoses Diagnosis Hypertension, unspecified type documented in this encounter Care Teams Bottom Liner Relationship Specialty Start Date End Date Freya Dalton MD [address] [place] [phone] PCP - General Family Medicine 09/15/13 documented as of this encounter
--- OUTSIDE RECORDS SUMMARY | 2024-10-28 10:31 | XMS_ITS | Encounter Summary ---
Author Organization [employer] Address [address] [facility] 7t [place] [address] Care Team Providers Care Security Checker Name Role Phone Freya Dalton MD Primary Care Provider [phone] Encounter Details Date Type Department Care Team (Latest Contact Info) Description 08/08/2020 Abstract [facility] CONVERSION[facility] Dental, Provider, DDS Social History Tobacco Use Types Packs/Day Years Used Date Smoking Tobacco: Never Assessed Comments Unknown Sex and Gender Information Value Date Recorded Sex Assigned at Female 07/08/2022 10:17 AM EDT Legal Sex Female 10:17 AM EDT Gender Identity Female 07/08/2022 10:17 AM EDT Sexual Orientation Straight 07/08/2022 10 :17 AM EDT documented as of this encounter Plan of Treatment Not on file documented as of this encounter Visit Diagnoses Not on filedocumented in this encounter Care Teams Security Checker Relationship Specialty Start Date End Date Freya Dalton MD [address] [place] [phone] PCP - General Family Medicine 09/15/13 documented as of this encounter
--- OUTSIDE RECORDS SUMMARY | 2024-10-28 10:31 | XMS_ITS | Encounter Summary ---
Author Organization [employer] Address [address] [facility] [address] [place] [address] Care Team Providers Care Black Powder Glazing Operator Name Role Phone Freya Dalton MD Primary Care Provider Reason for Visit * Reason Onset Date Comments Nurse Triage 08/04/2023 Encounter Details Date Type Department Care Team ([facility] Contact Info) Description 08/04/[address] [facility] MEDICINE [address] [place] [address] Freya Dalton MD [address] [place] [address] Nurse Triage Social History Tobacco Use Types Packs/Day Years Used Date Smoking Tobacco: Never Smokeless Tobacco: Never Alcohol Use Standard Drinks/Week Comments Never 0 (1 standard drink = 0.6 oz pur e alcohol) Depression Answer Date Recorded Patient Health Questionnaire-9 Score 0 02/14/2023 Housing Stability Answer Date Recorded What is your housing situation today? I have remy nguyễn 07/03/[address] you li ve. Do you have problems with any of the following? None of the above 07/03/2023 Food Insecurity Answer Date Recorded Within the past 12 months, y ou worried that your food would run out before you got money to buy more: Never True 07/03/2023 Within the past 12 months,th e food you bought just didn't last and you didn't have enough money to get more: Never True Transportation Answer Date Recorded In the past 12 months, has l ack of transportation kept you from medical appts, meetings, work or from getting things needed for daily living? No 07/03/2023 Utilities Answer Date Recorded In the past 12 months, has t he electric, gas, oil or water company threatened to shut off services in your home? Yes 06/17/2023 Depression Answer Date Recorded Patient Health Questionnaire-2 Score 0 02/14/2023 Comments Unknown Sex and Gender Information Value Date Recorded Sex Assigned at Female 07/08/2022 10:17 AM EDT Legal Sex Female 10:17 AM EDT Gender Identity Female 07/08/2022 10:17 AM EDT Sexual Orientation Straight 07/08/2022 10 :17 AM EDT documented as of this encounter Miscellaneous Notes * Telephone Encounter - Keyla Gustafson RN - 08/04/2023 3:33 PM EST Call to Vani Burton, reports having mid back pain x 2 weeks. Radiates to hip. No abdominal pain. Mild nausea. No urinary sx. No vomtiing or fever. Pt advised of disposition, agrees to visit this week with [facility] team provider. Reviewed home care advise and reasons to call back. Protocol Used: Back Pain (Adult) Protocol-Based Disposition: See in Office or Video Visit within 3 Days Future Appointments Date Time Provider Department Center 08/06/2023 11:15 AM Vee Dudley MD [facility] 08/21/2023 11:[address] [facility] Video visit offer not recorded Positive Triage Questions: * Moderate back pain (e.g., interferes with normal activities) and present > 3 days * Pain radiates into the thigh or further down the leg * All higher-acuity triage questions were negative Care Advice Discussed: * Reassurance and Education - Back Pain * Cold or Heat * Pain Medicines * Reasons To Call Back - Fever occurs - Numbness or weakness occurs, or bowel/bladder problems - You become worse * Telephone Encounter - Christina Hubbard - 08/04/2023 3:19 PM EST Symptoms: Back Pain - Not From Injury, Neck Pain - Not From Injury Outcome: Schedule an appointment to be seen within 24 hours Reason: Caller denied all higher acuity questions The caller accepted this outcome documented in this encounter Plan of Treatment Not on file documented as of this encounter Visit Diagnoses Not on filedocumented in this encounter Additional Health Concerns Assessment Noted Time PHQ-9 Depression Total Score: 0 02/15/20 11:02 AM EDT documented as of this encounter Care Teams Black Powder Glazing Operator Relationship Specialty Start Date End Date Freya Dalton MD [address] [place] [phone] PCP - General Family Medicine 09/15/13 documented as of this encounter
--- OUTSIDE RECORDS SUMMARY | 2024-10-28 10:31 | XMS_ITS | Encounter Summary ---
Author Organization [employer] Address [address] [facility] [address] [place] [address] Care Team Providers Care Workgroup Leader Name Role Phone Freya Dalton MD Primary Care Provider [phone] Reason for Visit * Reason Comments Med Refill Encounter Details Date Type Department Care Team ([facility] Contact Info) Description 09/30/2024 Refill [facility] & PEDS [address] [place] [address] Freya Dalton MD [address] [place] [address] Primary hypertension Social History Tobacco Use Types Packs/Day Years [...] documented as of this encounter Visit Diagnoses Diagnosis Primary hypertension Unspecified essential hypertension documented in this encounter Additional Health Concerns Assessment Noted Time PHQ-9 Depression Total Score: 2 09/23/19 25 9:22 AM EST documented as of this encounter Care Teams Workgroup Leader Relationship Specialty Start Date End Date Freya Dalton MD [address] [place] [phone] PCP - General Family Medicine 09/15/13 documented as of this encounter
--- OUTSIDE RECORDS SUMMARY | 2024-10-28 10:31 | XMS_ITS | Encounter Summary ---
Author Organization [employer] Address [address] [facility] 7t [place] [address] Care Team Providers Care Family Program Specialist Name Role Phone Freya Dalton MD Primary Care Provider [phone] Reason for Visit * Reason Onset Date Comments XRAY ORDER 03/24/2024 Encounter Details Date Type Department Care Team ([facility] Contact Info) Description 03/24/2024 Telephone [facility] MED & PEDS [address] [place] [address] Freya Dalton MD [address] [place] [address] XRAY ORDER Social History Tobacco Use Types Packs/Day Years [...] encounter Miscellaneous Notes * Telephone Encounter - Christina Hubbard - 03/31/2024 9:28 AM EDT Tc from pt requesting a call back in regards below message, pt stated need the xray order in order to comeback to work. 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 Pt is requesting a chest xray instead to test for TB needed for work. Advised that message will be sent to PCP. Pt verbalizes understanding and agreed to plan. * Telephone Encounter - Ana Head - 03/24/2024 11:34 AM EDT Tc from pt requesting when was her last tuberculosis results and if she is due . States needs for work please call pt for any clarification. documented in this encounter Plan of Treatment Not on file documented as of this encounter Visit Diagnoses Not on filedocumented in this encounter Additional Health Concerns Assessment Noted Time PHQ-9 Depression Total Score: 0 02/15/20 23 11:02 AM EDT documented as of this encounter Care Teams Family Program Specialist Relationship Specialty Start Date End Date Freya Dalton MD [address] [place] [phone] PCP - General Family Medicine 09/15/13 documented as of this encounter
--- OUTSIDE RECORDS SUMMARY | 2024-10-28 10:31 | XMS_ITS | Encounter Summary ---
Author Organization [employer] Address [address] [facility] [address] [place] [address] Care Team Providers Care Engraver Hand Soft Metals Name Role Phone Freya Dalton MD Primary Care Provider [phone] Reason for Visit * Reason Onset Date Comments FYI 07/23/2023 Encounter Details Date Type Department Care Team ([facility] Contact Info) Description 07/23/2023 Telephone [facility] MEDICINE [address] [place] [address] Freya Dalton MD [address] [place] [address] FYI Social History Tobacco Use Types Packs/Day Years [...] encounter Miscellaneous Notes * Telephone Encounter - Aaron Blanco RN - 07/23/2023 3:57 PM EST Noted. Will FYI PCP. * Telephone Encounter - Christina Hubbard - 07/23/2023 3:26 PM EST Tc from pt, calling to report pt test positive to [facility] on July 21, pt states is feeling fine, poem writer ask pt if need a nurse to calk back poem writer can do a triage but pt states feeling goodand just wanted to reported. Recovery Unit Operator advise pt if feels bad in any moment can call back and office can assist. documented in this encounter Plan of Treatment Not on file documented as of this encounter Visit Diagnoses Not on filedocumented in this encounter Additional Health Concerns Assessment Noted Time PHQ-9 Depression Total Score: 0 02/15/20 23 11:02 AM EDT documented as of this encounter Care Teams Engraver Hand Soft Metals Relationship Specialty Start Date End Date Freya Dalton MD [address] [place] [phone] PCP - General Family Medicine 09/15/13 documented as of this encounter
--- OUTSIDE RECORDS SUMMARY | 2024-10-28 10:31 | XMS_ITS | Encounter Summary ---
Author Organization [employer] Address [address] [facility] [address]t [place] [address] Care Team Providers Care Race Board Attendant Name Role Phone Freya Dalton MD Primary Care Provider [phone] Encounter Details Date Type Department Care Team ([facility] Contact Info) Description 02/10/2024 Orders Only [facility] [address] [place] [address] Provider, MD Sanjuana Social History Tobacco Use Types Packs/Day Years Used Date Smoking Tobacco: Never Passive Smoke Exposure: Never Smokeless Tobacco: Never Alcohol Use Standard Drinks/Week Comments Never 0 (1 standard drink = 0.6 oz pur e alcohol) Depression Answer Date Recorded Patient Health Questionnaire-9 Score 0 02/14/2023 Housing Stability Answer Date Recorded What is your housing situation today? I have remyamina nguyễn 07/03/[address] you [...] Procedure Name Priority Date/Time Associated Diagnosis Comments BI MAMMOGRAM SCREENING BILATERAL Routine 02/10/2024 2:52 PM EDT documented in this encounter Results * BI Mammogram Screening Bilateral (02/10/2024 2:52 PM EDT) Anatomical Region Laterality Modality Breast Bilateral Mammography Historical Provider MD ELY BI PROCEDURES Final R esult documented in this encounter Visit Diagnoses Not on filedocumented in this encounter Additional Health Concerns Assessment Noted Time PHQ-9 Depression Total Score: 0 02/15/20 23 11:02 AM EDT documented as of this encounter Care Teams Race Board Attendant Relationship Specialty Start Date End Date Freya Dalton MD [address] [place] [address] PCP - General Family Medicine 09/15/13 documented as of this encounter
== END 2024-10-28 10:09 | disposition home or self-care (01) ==
PROVIDERS: PCP Student in an Organized Health Care Education/Training Program; Referring Provider Student in an Organized Health Care Education/Training Program; Visit Provider Internal Medicine Nephrology
DX: N17.9 Acute kidney failure, unspecified (principal); I10 Essential (primary) hypertension; N20.0 Calculus of kidney
CPT/HCPCS: 99204

== ENCOUNTER 2024-11-09 13:46 | Outpatient (AMB) | payer OTHER, SELFPAY ==
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
[2024-11-09 14:10] VITALS: BMI 38.1
--- OUTSIDE RECORDS SUMMARY | 2024-11-09 17:26 | XMS_ITS | Encounter Summary ---
Author Organization [employer] Address [address] [place] [address] Care Team Providers Care Rail Car Loader Name Role Phone Freya Dalton MD Primary Care Provider Reason for Visit * Reason Onset Date Comments FYI 07/23/2023 Encounter Details Date Type Department Care Team ([facility] Contact Info) Description 07/23/2023 Telephone [facility] [address] [place] [address] Freya Dalton MD [address] [place] [address] FYI Social History Tobacco Use Types Packs/Day [...] July 21, pt states is feeling fine, property underwriter ask pt if need a nurse to calk back property underwriter can do a triage but pt states feeling goodand just wanted to reported. Manager Creative advise pt if feels bad in any moment can call back and office can assist. documented in this encounter Plan of Treatment Not on file documented as of this encounter Visit Diagnoses Not on filedocumented in this encounter Additional Health Concerns Assessment Noted Time PHQ-9 Depression Total Score: 0 02/15/20 23 11:02 AM EDT documented as of this encounter Care Teams Rail Car Loader Relationship Specialty Start Date End Date Freya Dalton MD [address] [place] [id number] PCP - General Family Medicine 09/15/13 documented as of this encounter
--- OUTSIDE RECORDS SUMMARY | 2024-11-09 17:26 | XMS_ITS | Encounter Summary ---
Author Organization [employer] Address [address] [place] [address] Care Team Providers Care Earth Science Faculty Member Name Role Phone Freya Dalton MD Primary Care Provider [phone] Reason for Visit * Reason Onset Date Comments XRAY ORDER 03/24/2024 Encounter Details Date Type Department Care Team ([facility] Contact Info) Description 03/24/2024 Telephone [facility] [address] [place] [address] Freya Dalton MD [address] [place] [address] XRAY ORDER Social History Tobacco Use Types [...] skin test due to vaccination shereceived in [place]. Pt is requesting a chest xray instead [...] documented as of this encounter Care Teams Earth Science Faculty Member Relationship Specialty Start Date End Date Freya Dalton MD [address] [place] [phone] PCP - General Family Medicine 09/15/13 documented as of this encounter
--- OUTSIDE RECORDS SUMMARY | 2024-11-09 17:26 | XMS_ITS | Encounter Summary ---
Author Organization [employer] Address [address] [facility] [address] [facility] [address] [place] [address] Care Team Providers Care Tenoner Operator Name Role Phone Freya Dalton MD Primary Care Provider [phone] Encounter Details Date Type Department Care Team ([facility] Contact Info) Description 02/10/2024 Orders Only [facility] [address] [place] [address] Provider, MD Sanjuana Social History Tobacco Use [...] documented as of this encounter Care Teams Tenoner Operator Relationship Specialty Start Date End Date Freya Dalton MD [address] [place] [address] PCP - General Family Medicine 09/15/13 documented as of this encounter
--- OUTSIDE RECORDS SUMMARY | 2024-11-09 17:26 | XMS_ITS | Clinical Summary ---
Author Organization [employer] Address [address] [place] [address] Care Team Providers Care Log Inspector Name Role Phone Freya Dalton MD Primary Care Provider Allergies Active Allergy Reactions Criticality Noted Date Comments Latex 06/04/2021 Other reaction(s): rash Medications verapamil SR (Calan SR) 120 MG ER tablet Take 120 mg by mouth in the morning. 04/08/20 23 Active fluticasone (Flovent HFA) 220 MCG/ACT inhaler Inhale 1 puff every 12 (twelve) hours. 02/13/20 22 Active Flovent Diskus 50 MCG/ACT aerosol powder INHALE ONE PUFF TWICE DAILY, RINSE MOUTH AFTER USE 01/04/20 23 Active butalbital-aceta minophen-caffein e 50-325-40 MG tablet TAKE TWO TABLETS BY MOUTH AT ONSET of HEADACHE, EVERY 8 HOURS NEEDED 01/02/20 23 Active clobetasol (Temovate) 0.05 % ointment Apply to the affected area(s) of hands once daily 11/04/19 23 Active Eucrisa 2 % ointment APPLY TO THE AFFECTED AREA(S) TWICE DAILY 11/07/19 23 Active [address]ilant [address] capsule Take 1 capsule by mouth in the morning. 04/01/20 23 Active docusate sodium (Colace) 100 MG capsule Take 100 mg by mouth in the morning. 04/01/20 23 Active EPINEPHrine (Epipen) 0.3 MG/0.3ML injection syringe INJECT INTRAMUSCULARLY DIRECTED ON PACKAGE 11/04/19 23 Active Diclofenac Sodium (Voltaren) 1 % gel Use topical BID 100 g 3 02/26/20 24 Active losartan (Cozaar) 25 MG tabletIndication s:Primary hypertension TAKE ONE TABLET EVERY MORNING 90 tablet 3 05/24/20 24 Active meloxicam (Mobic) 7.5 MG tablet Take 1 tablet (7.5 mg) by mouth Once per day. 30 tablet 11 06/09/20 24 025 Active Omeprazole 20 MG tablet delayed-release Take 20 mg by mouth Once per day. 30 tablet 3 06/09/20 24 025 Active albuterol (ProAir HFA) 108 (90 Base) MCG/ACT inhaler Inhale 2 puffs in the morning, at noon, in the evening, and at bedtime. 8.5 g 3 09/23/19 25 Active hydroCHLOROthiaz shane (HYDRODiuril) 25 MG tabletIndication s:Primary hypertension TAKE ONE TABLET EVERY DAY 90 tablet 1 10/01/19 25 Active Active Problems Problem Noted Date Diagnosed Date [...] Encounters Date Type Department Care Team Description 10/28/2024 Orders Only GENERIC EXTERNAL DATA DEPARTMENT Provider, Generic External Data 09/30/2024 Refill [facility] [address] [place] [address] Freya Dalton MD Primary hypertension 09/28/2024 Telephone [facility] [address] [place] [address] Padmini Weaver, RN Results 09/24/2024 Orders Only [facility] [address] [place] [address] Freya Dalton MD Primary hypertension (Primary Dx) 09/23/2024 9:00 AM EST Office Visit [facility] [address] [place] [address] Freya Dalton MD Primary hypertension (Primary Dx); Thumb tendonitis; Encounter for annual wellness visit 09/23/2024 Travel 09/20/2024 Telephone [facility] [address] [facility] [place] [address] Freya Dalton MD Chart Prep 09/16/2024 Patient Outreach [facility] [address] [place] [address] Freya Dalton MD Pre-visit Planning (SDOH was completed on 09/13/2024) 09/13/2024 Patient Outreach [facility] [address] [place] [address] Freya Dalton MD Care Coordination (CHW outreach for SDOH PT-1 and food needs-referral completed /) 09/13/2024 Patient Outreach [facility] [address] [place] [address] Freya Dalton MD Pre-visit Planning (SDOH Screening [...] (1 of 2) 2024 COVID-19 Vaccine ( - season) 2025 07/08/2021, 07/08/2021, 07/08/2021 Postponed from [...] Name Priority Date/Time Associated Diagnosis Comments URINALYSIS, COMPLETE Routine 10/28/2024 10:45 AM EST PROTEIN CREATININE RATIO, URINE Routine 10/28/2024 10:45 AM EST PHOSPHOLIPASE A2 RECEPTOR (PLA2R) AB PANEL Routine 10/28/2024 10:35 AM EST PROTEINASE-3 ANTIBODY Routine 10/28/2024 10:35 AM EST MYELOPEROXIDASE ANTIBODY (MPO) Routine 10/28/2024 10:35 AM EST GLOMERULAR BASEMENT MEMBRANE ANTIBODY (IGG) Routine 10/28/2024 10:35 AM EST DNA (DS) ANTIBODY Routine 10/28/2024 10: 35 AM EST SCL-70 ANTIBODY Routine 10/28/2024 10:35 AM EST SM AND SM/ADMINISTRATION PHYSICIAN ANTIBODIES Routine 10/28/2024 10:35 AM EST SJOGREN'S ANTIBODIES (SS-A,SS-B) Routine 10/28/2024 10:35 AM EST IMMUNOFIXATION, SERUM Routine 10/28/2024 10:35 AM EST KRISTI SCREEN, IFA, W/REFL TITER AND PATTERN Routine 10/28/2024 10:35 AM EST COMPLEMENT COMPONENT C4C Routine 10/28/2024 10:35 AM EST COMPLEMENT COMPONENT C3C Routine 10/28/2024 10:35 AM EST HEPATITIS B SURFACE ANTIGEN, EIA Routine 10/28/2024 10:35 AM EST HEPATITIS B CORE AB TOTAL Routine 10/28/2024 10:35 AM EST CALCIUM Routine 10/28/2024 10:35 AM EST CREATININE, SERUM Routine 10/28/2024 10: 35 AM EST UREA NITROGEN (BUN) Routine 10/28/2024 1 0:35 AM EST ELECTROLYTE PANEL Routine 10/28/2024 10: 35 AM EST HEPATIC FUNCTION PANEL Routine 10:00 AM EST Primary hypertension LIPID PANEL, [...] Relevant to Health Maintenance Results * (ABNORMAL) Protein Creatinine Ratio, Urine (10/28/2024 10:45 AM EST) Creatinine, Urine 177.36 mg/dL [facility] Protein, Total, Random Urine 17(H) <12 mg/dL [facility] Protein/Creati nine Ratio, Ur 0.10 <0.2 [facility] Comment:The spot urine prote in:creatinine ratio may increase to 0.3during normal . 10/28/2024 10:4 5 AM EST 10/28/2024 5:57 PM EST us Generic External Data Provider LAB URINE ORDERAB LES Final Result Performing Organization Address [facility] de Phone Number [facility] [address] [place] [phone] * (ABNORMAL) Urinalysis Complete (10/28/2024 10:45 AM EST) Color Urine Dark Yellow [facility] Appearance Urine Turbid [facility] PH 6.0 5.0 - 9.0 [facility] Glucose Urine UA Negative Negative mg/dL [facility] Urine Blood Negative Negative [facility] Specific [place] - Urine >=1.030(H) 1.005 - 1.025 [facility] Urine Protein Trace Neg-Trace mg/dL [facility] Urine Ketones Trace Negative mg/dL [facility] Nitrite Urine Negative Negative [facility] Leukocyte Esterase Urine Small (1+)(A) Negative [facility] RBC Urine 0-2 0 - 2 /HPF [facility] Urine WBC 0-5 0 - 5 /HPF [facility] Urine Squamous Epithelial Cell 0-2 0 - 2 /HPF [facility] Urine Bacteria None Seen None Seen [facility] Hyaline Casts, Urine 0-2 0 - 2 /LPF [facility] 10/28/2024 10:4 5 AM EST 10/28/2024 5:57 PM EST us Generic External Data Provider LAB URINE ORDERAB LES Final Result [facility] [address] [place] [phone] * Proteinase-3 Antibody (10/28/2024 10:35 AM EST) Proteinase-3 Antibody <1.0 [facility] Comment:Value Interpretation ----- <1.0 No Antibody Detected > or = 1.0 Antibody DetectedAutoantibodies to proteinase-3 (TN-3) are accepted ascharacteristic for granulomatosis with polyangiitis(GPA, Karen's), and are detectable in 95% of thehistologically proven cases. The cytoplasmic IFApattern, (c-ANCA), is based largely on autoantibody toPR-3 which serves as the primary antigen.These autoantibodies are present in active disease.THIS TEST WAS PERFORMED AT:[employer] [place] [phone] JONES MD 10/28/2024 10:3 5 AM EST 10/28/2024 5:50 PM EST Generic External Data Provider LAB BLOOD ORDERAB LES Final Result [facility] [address] [place] [phone] * Myeloperoxidase Antibody (MPO) (10/28/2024 10:35 AM EST) Myeloperoxidase Antibody <1.0 [facility] Comment:Value Interpretation ----- <1.0 No Antibody Detected > or = 1.0 Antibody DetectedAutoantibodies to myeloperoxidase (MPO) are commonlyassociated with the following small-vesselvasculitides: microscopic polyangiitis,polyarteritis nodosa, Churg-Samantha syndrome,necrotizing and crescentic glomerulonephritis andoccasionally granulomatosis with polyangiitis(GPA, Karen's). The perinuclear IFA pattern,(p-ANCA) is based largely on autoantibody tomyeloperoxidase which serves as the primary antigen.These autoantibodies are present in active disease.THIS TEST WAS PERFORMED AT:[employer] [address] [address] ORALIA JONES MD 10/28/2024 10:3 5 AM EST 10/28/2024 5:50 PM EST Generic External Data Provider LAB BLOOD ORDERAB LES Final Result Performing Organization Address [facility] [address] [place] [phone] * Sm and Sm/ADMINISTRATION PHYSICIAN Antibodies (10/28/2024 10:35 AM EST) SM Antibody <1.0 NEG <1.0 NEG [facility] SM/ADMINISTRATION PHYSICIAN Antibody <1.0 NEG <1.0 NEG [facility] Comment:THIS TEST WAS PERFOR MED AT:[employer] [address] [phone] JONES MD 10/28/2024 10:3 5 AM EST 10/28/2024 5:50 PM EST Generic External Data Provider LAB BLOOD ORDERAB LES Final Result Performing Organization Address [facility] [address] [place] [phone] * Sjogren's Antibodies (SS-A,SS-B) (10/28/2024 10:35 AM EST) Sjogren's Antibody (SS-A) <1.0 NEG <1.0 NEG [facility] Sjogren's Antibody (SS-B) <1.0 NEG <1.0 NEG [facility] Comment:THIS TEST WAS PERFOR MED AT:[employer] [address] [phone] JONES MD 10/28/2024 10:3 5 AM EST 10/28/2024 5:50 PM EST us Generic External Data Provider LAB BLOOD ORDERAB LES Final Result Performing Organization Address [facility] Co de Phone Number [facility] [address] [place] [phone] * Phospholipase A2 Receptor (PLA2R) Antibody Panel (10/28/2024 10:35 AM EST) Phospholipase A2 Receptor (PLA2R) Ab, ANN MARIE <4 RU/mL [facility] Comment:Reference Range: <14 : NEGATIVE 14-19: BORDERLINE >19: POSITIVE Phospholipase A2 Receptor (PLA2R) Ab, IFA NEGATIVE NEGATIVE [facility] Comment:THIS TEST WAS PERFOR MED AT:[employer] [id number] [place] [phone] EDUARDO FLOREZ MD,PHD,BELLA 10/28/2024 10:3 5 AM EST 10/28/2024 5:50 PM EST Generic External Data Provider LAB BLOOD ORDERAB LES Final Result Performing Organization Address [facility] de Phone Number [facility] [address] [place] [phone] * Creatinine, Serum (10/28/2024 10:35 AM EST) Creatinine, Serum 0.65 0.5 - 1.4 mg/dL [facility] Estimated Glomerular Filt Rate >60 [facility] Comment:Chronic Kidney Disea se: Estimated GFR < 60 mL/min/1.68t6Kxyozv Kidney Disease: Estimated GFR < 15 mL/min/1.73m2 10/28/2024 10:3 5 AM EST 10/28/2024 5:56 PM EST us Generic External Data Provider LAB BLOOD ORDERAB LES Final Result Performing Organization Address City/[facility] Co de Phone Number [facility] [address] [place] [phone] * SCL-70 Antibody (10/28/2024 10:35 AM EST) SCL-70 Antibody <1.0 NEG <1.0 NEG [facility] Comment:THIS TEST WAS PERFOR MED AT:[employer] [address] [phone] JONES MD 10/28/2024 10:3 5 AM EST 10/28/2024 5:50 PM EST Generic External Data Provider LAB BLOOD ORDERAB LES Final Result Performing Organization Address [facility]/ZIP Co de Phone Number [facility] [address] [place] [phone] * Glomerular Basement Membrane Antibody (IgG) (10/28/2024 10:35 AM EST) Glomerular Basement Memebrane Antibody (IgG) <1.0 [facility] Comment:Value Interpretation ----- <1.0 No Antibody Detected > or = 1.0 Antibody DetectedTHIS TEST WAS PERFORMED AT:[employer] [address] [phone] JONES MD 10/28/2024 10:3 5 AM EST 10/28/2024 5:50 PM EST Generic External Data Provider LAB BLOOD ORDERAB LES Final Result Performing Organization Address City/[facility]/ZIP Co de Phone Number [facility] [address] [place] [phone] * DNA (ds) Antibody (10/28/2024 10:35 AM EST) Anti DNA DS Antibody <1 IU/mL [facility] Comment:IU/mL Interpretation < or = 4 Negative 5-9 Indeterminate > or = 10 PositiveTHIS TEST WAS PERFORMED AT:[employer] [place] [phone] JONES MD 10/28/2024 10:3 5 AM EST 10/28/2024 5:50 PM EST us Generic External Data Provider LAB BLOOD ORDERAB LES Final Result Performing Organization Address [facility] Co de Phone Number [facility] [address] [place] [phone] * Hepatitis B surface antigen, EIA (10/28/2024 10:35 AM EST) Pathologist [facility] Hepatitis B Surface Ag Negative Negative [facility] 10/28/2024 10:3 5 AM EST 10/28/2024 5:56 PM EST us Generic External Data Provider LAB BLOOD ORDERAB LES Final Result Performing Organization Address [facility] Co de Phone Number [facility] [address] [place] [phone] * Hepatitis B Core Antibody, Total (10/28/2024 10:35 AM EST) Pathologist [facility] Hepatitis B Core Antibody Nonreactive Nonreactive [facility] 10/28/2024 10:3 5 AM EST 10/28/2024 5:56 PM EST Generic External Data Provider LAB BLOOD ORDERAB LES Final Result Performing Organization Address [facility] de Phone Number [facility] [address] [place] [phone] * Immunofixation, Serum (10/28/2024 10:35 AM EST) IMMUNOGLOBULIN G 1611 600 - 1640 mg/dL [facility] IMMUNOGLOBULIN A 90 47 - 310 mg/dL [facility] Immunoglobulin M 168 50 - 300 mg/dL [facility] Comment:THIS TEST WAS PERFOR MED AT:[facility] [address] [phone] JONES MD Immunofixation Result SEE NOTE [facility] Comment:Normal pattern. No m onoclonal proteins detected. 10/28/2024 10:3 5 AM EST 10/28/2024 5:50 PM EST us Generic External Data Provider LAB BLOOD ORDERAB LES Final Result Performing Organization Address [facility] Co de Phone Number [facility] [address] [place] [phone] * Complement Component C3c (10/28/2024 10:35 AM EST) Complement C3 177 83 - 193 mg/dL [facility] Comment:THIS TEST WAS PERFOR MED AT:[employer] [address] [phone] JONES MD 10/28/2024 10:3 5 AM EST 10/28/2024 5:54 PM EST us Generic External Data Provider LAB BLOOD ORDERAB LES Final Result Performing Organization Address [facility] de Phone Number [facility] [address] [place] [phone] * Complement Component C4c (10/28/2024 10:35 AM EST) Complement C4 38 15 - 57 mg/dL [facility] Comment:THIS TEST WAS PERFOR MED AT:[employer] [address] [phone] JONES MD 10/28/2024 10:3 5 AM EST 10/28/2024 5:54 PM EST us Generic External Data Provider LAB BLOOD ORDERAB LES Final Result Performing Organization Address [facility] Co de Phone Number [facility] [address] [place] [phone] * KRISTI Screen,IFA, with Reflex to Titer and Pattern (10/28/2024 10:35 AM EST) Anti Nuclear Antibody Screen NEGATIVE NEGATIVE [facility] Comment:KRISTI IFA is a first l ine screen for detecting thepresence of up to approximately 150 autoantibodies invarious autoimmune diseases. A negative KRISTI IFA resultsuggests an KRISTI-associated autoimmune disease is notpresent at this time, but is not definitive. If thereis high clinical suspicion for Sjogren's syndrome,testing for anti-SS-A/Ro antibody should be considered.Anti-Lubna-1 antibody should be considered for clinicallysuspected inflammatory myopathies.AC-0: NegativeInternational Consensus on KRISTI Patterns(https://doi.org/10.1515/xvst-6944-5375)For additional information, please refer tohttp://education.[employer]/faq/ZXN951(This link is being provided for informational/educational purposes only.)THIS TEST WAS PERFORMED AT:[employer] [place] [phone] JONES MD KRISTI Titer [facility] KRISTI Pattern [facility] KRISTI TITER 2 (REF LAB) [facility] KRISTI Pattern 2 [facility] KRISTI TITER 3 [facility] KRISTI PATTERN 3 [facility] 10/28/2024 10:3 5 AM EST 10/28/2024 5:50 PM EST us Generic External Data Provider LAB BLOOD ORDERAB LES Final Result [facility] [address] [place] [phone] * (ABNORMAL) BUN (Blood Urea Nitrogen) (10/28/2024 10:35 AM EST) Urea Nitrogen (BUN) 18(H) 9 - 16 mg/dL [facility] 10/28/2024 10:3 5 AM EST 10/28/2024 5:56 PM EST us Generic External Data Provider LAB BLOOD ORDERAB LES Final Result Performing Organization Address [facility] Co de Phone Number [facility] [address] [place] [phone] * Calcium (10/28/2024 10:35 AM EST) Calcium 9.6 8.4 - 10.2 mg/dL [facility] 10/28/2024 10:3 5 AM EST 10/28/2024 5:56 PM EST Generic External Data Provider LAB BLOOD ORDERAB LES Final Result Performing Organization Address [facility] Phone Number [facility] [address] [place] [phone] * Electrolyte Panel (10/28/2024 10:35 AM EST) Sodium 140 135 - 145 mmol/L [facility] Potassium 3.8 3.3 - 5.1 mmol/L [facility] Chloride 105 96 - 108 mmol/L [facility] Carbon Dioxide 26 22 - 29 mmol/L [facility] Anion Gap 13 12 - 20 [facility] 10/28/2024 10:3 5 AM EST 10/28/2024 5:56 PM EST Generic External Data Provider LAB BLOOD ORDERAB LES Final Result Performing Organization Address [facility] Co de Phone Number [facility] [address] [place] [phone] * (ABNORMAL) Hepatic Function Panel (09/23/2024 10:00 AM EST) Bilirubin, Total 0.4 0.0 - 1.0 mg/dL [facility] Bilirubin, Direct 0.1 0.0 - 0.5 mg/dL [facility] Aspartate Amino Transferase 29 5 - 31 U/L [facility] Alanine Aminotransferase 31 0 - 31 U/L [facility] Total Protein 6.3(L) 6.5 - 8.0 g/dL [facility] Albumin Level 3.7 3.5 - 5.0 g/dL [facility] Alkaline Phosphatase 48 39 - 117 U/L [facility] Blood Venous blood specimen / Unknown 09/23/2024 10:00 AM EST 09/23/2024 2:00 PM EST us Freya Dalton MD LAB BLOOD ORDERABLES Final Resul t [facility] [address] [place] [phone] * (ABNORMAL) Lipid Panel, Standard (09/23/2024 10:00 AM EST) Triglycerides 198(H) <150 mg/dL [facility] Comment:Desirable Triglyceri de: less than 150 mg/dLBorderline High Triglyceride 150-199 mg/dLHigh Triglyceride: 200-499 mg/dLVery High Triglyceride: greater than or equal to 5OO mg/dL Cholesterol 117 <200 mg/dL [facility] Comment:Desirable Cholestero l: less than 200 mg/dLBorderline High Cholesterol: 200-239 mg/dLHigh Cholesterol: greater than 239 mg/dL LDL Cholesterol Calculated 38 <100 mg/dL [facility] Comment:Desirable LDL: less than 100 mg/dLNear Optimal/Above Optimal LDL: 110- 129 mg/dLBorderline High LDL: 130-159 mg/dLHigh LDL: 160-189 mg/dLVery High LDL: greater than or equal to 190 mg/dL HDL Cholesterol 40(L) >40 mg/dL [facility] Comment:Desirable HDL: great er than 40 mg/dL Note: This HDL assay may give artificially low results in patients with liver disease. Blood Venous blood specimen / Unknown 09/23/2024 10:00 AM EST 09/23/2024 2:00 PM EST Freya Dalton MD LAB BLOOD ORDERABLES Final Resul t Performing Organization Address [facility] de Phone Number [facility] [address] [place] [phone] * (ABNORMAL) Basic Metabolic Panel (09/23/2024 10:00 AM EST) Sodium 140 135 - 145 mmol/L [facility] Potassium 4.3 3.3 - 5.1 mmol/L [facility] Chloride 111(H) 96 - 108 mmol/L [facility] Carbon Dioxide 23 22 - 29 mmol/L [facility] Anion Gap 10(L) 12 - 20 [facility] Urea Nitrogen (BUN) 46(H) 9 - 16 mg/dL [facility] Creatinine, Serum 1.38 0.5 - 1.4 mg/dL [facility] Estimated Glomerular Filt Rate 40 [facility] Comment:Chronic Kidney Disea se: Estimated GFR < 60 mL/min/1.51v7Iielvl Kidney Disease: Estimated GFR < 15 mL/min/1.73m2 Glucose 111 60 - 115 mg/dL [facility] Calcium 8.6 8.4 - 10.2 mg/dL [facility] Blood Venous blood specimen / Unknown 09/23/2024 10:00 AM EST 09/23/2024 2:00 PM EST Freya Dalton MD LAB BLOOD ORDERABLES Final Resul t Performing Organization Address [facility] Co de Phone Number [facility] [address] [place] [phone] * BI Mammogram Screening Bilateral (02/10/2024 2:52 PM EDT) Anatomical Region Laterality Modality Breast Bilateral Mammography Historical Provider IMG BI PROCEDURES Final R esult * HIV-1 RNA, Quantitative, Real-Time PCR with Reflex to Genotype (RTI, PI, Integrase) (02/18/2023 9:40 AM EDT) HIV 1 RNA, QN PCR NOT DETECTED copies/mL [facility], HIV 1 RNA, QN PCR NOT DETECTED Log copies/mL [facility], Comment: REFERENCE RANGE: NOT DETECTED copies/mL ?NOT DETECTED ??Log copies/mL This test was performed using Real-Time Polymerase Chain Reaction. Reportable range is 20 to 10,000,000 copies/mL (1.30-7.00 Log copies/mL). 02/18/2023 9:40 AM EDT 02/18/2023 9:41 AM EDT Result [facility] [place] MD LAB BLOOD ORDERABLES Final Resul t [address], [place] [address] [place], [address] [place] [phone] * Hepatitis C Antibody with Reflex to HCV, RNA, Quantitative, Real-Time PCR (02/18/2023 9:40 AM EDT) Pathologist [facility] Hepatitis C Antibody NON-REACT ROCHELLE NON-REACT ROCHELLE [place] [employer] Index 0.10 <1.00 [place] [facility] Comment: HCV antibody was non-reactive. There is no laboratory evidence of HCV infection. In most cases, no further action is required. However, if recent HCV exposure is suspected, a test for HCV RNA (test code 79966) is suggested. For additional information please refer to http://education.[employer]/faq/QKE78w8 (This link is being provided for informational/ educational purposes only.) Blood Venous blood specimen / Unknown 02/18/2023 9:40 AM EDT 02/18/2023 9:41 AM EDT Result Formerly [facility], [facility] us Freya Dalton MD LAB BLOOD ORDERABLES Final Resul t [facility] [address] [facility], [facility], [place] [address] [facility] [address] [place] [address] * Hm Colonoscopy (07/03/2018) Colonoscopy Normal Normal Historical Provider HEALTH MAINTENANCE Final Result from Last 3 Months or Most Recently Relevant to Health Maintenance Insurance [facility] Care Teams Log Inspector Relationship Specialty Start Date End Date Freya Dalton MD [address] [place] [phone] PCP - General Family Medicine 09/15/13
--- OUTSIDE RECORDS SUMMARY | 2024-11-09 17:26 | XMS_ITS | Encounter Summary ---
Author Organization [employer] Address [address] [address] [facility] [facility] [address] [place] [address] Care Team Providers Care Surface Ship Usw Supervisor Name Role Phone Freya Dalton MD Primary Care Provider [phone] Reason for Visit * Reason Onset Date Comments Nurse Triage 08/04/2023 Encounter Details Date Type Department Care Team ([facility] Contact Info) Description 08/04/2023 Telephone [facility]ICINE [address] [place] [address] Freya Datlon MD [address] [place] [address] Nurse Triage Social History Tobacco Use Types [...] disposition, agrees to visit this week with [facility] team provider. Reviewed home care advise and reasons to call back. Protocol Used: Back Pain (Adult) Protocol-Based Disposition: See in Office or Video Visit within 3 Days Future Appointments Date Time Provider Department Center 08/06/2023 11:15 AM Vee Dudley MD [facility] 08/21/2023 11:[address] [facility] Video visit offer not recorded Positive Triage [...] documented as of this encounter Care Teams Surface Ship Usw Supervisor Relationship Specialty Start Date End Date Freya Dalton MD [address] [place] [phone] PCP - General Family Medicine 09/15/13 documented as of this encounter
--- OUTSIDE RECORDS SUMMARY | 2024-11-09 17:26 | XMS_ITS | Encounter Summary ---
Author Organization [employer] Address [address] [place] [address] Care Team Providers Care Car Seat Maker Name Role Phone Freya Dalton MD Primary Care Provider [phone] Encounter Details Date Type Department Care Team ([facility] Contact Info) Description 10/28/2024 Orders Only GENERIC EXTERNAL DATA DEPARTMENT Provider, Generic External Data Social History Tobacco Use Types Packs/Day Years [...] Procedure Name Priority Date/Time Associated Diagnosis Comments PROTEIN CREATININE RATIO, URINE Routine 10/28/2024 10:45 AM EST URINALYSIS, COMPLETE Routine 10/28/2024 10:45 AM EST PROTEINASE-3 ANTIBODY Routine 10/28/2024 10:35 AM EST MYELOPEROXIDASE ANTIBODY (MPO) Routine 10/28/2024 10:35 AM EST SM AND SM/CIVIL CAD TECH ANTIBODIES Routine 10/28/2024 10:35 AM EST SJOGREN'S ANTIBODIES (SS-A,SS-B) Routine 10/28/2024 10:35 AM EST PHOSPHOLIPASE A2 RECEPTOR (PLA2R) AB PANEL Routine 10/28/2024 10:35 AM EST CREATININE, SERUM Routine 10/28/2024 10: 35 AM EST SCL-70 ANTIBODY Routine 10/28/2024 10:35 AM EST GLOMERULAR BASEMENT MEMBRANE ANTIBODY (IGG) Routine 10/28/2024 10:35 AM EST DNA (DS) ANTIBODY Routine 10/28/2024 10: 35 AM EST HEPATITIS B SURFACE ANTIGEN, EIA Routine 10/28/2024 10:35 AM EST HEPATITIS B CORE AB TOTAL Routine 10/28/2024 10:35 AM EST IMMUNOFIXATION, SERUM Routine 10/28/2024 10:35 AM EST COMPLEMENT COMPONENT C3C Routine 10/28/2024 10:35 AM EST COMPLEMENT COMPONENT C4C Routine 10/28/2024 10:35 AM EST KRISTI SCREEN, IFA, W/REFL TITER AND PATTERN Routine 10/28/2024 10:35 AM EST UREA NITROGEN (BUN) Routine 10/28/2024 1 0:35 AM EST CALCIUM Routine 10/28/2024 10:35 AM EST ELECTROLYTE PANEL Routine 10/28/2024 10: 35 AM EST documented in this encounter Results * (ABNORMAL) Urinalysis Complete (10/28/2024 10:45 AM EST) Color Urine Dark Yellow [facility] Appearance Urine Turbid [facility] PH 6.0 5.0 - 9.0 [facility] Glucose Urine UA Negative Negative mg/dL [facility] Urine Blood Negative Negative [facility] Specific [place] - Urine >=1.030(H) 1.005 - 1.025 [facility] Urine Protein Trace Neg-Trace mg/dL [facility] Urine Ketones Trace Negative mg/dL [facility] Nitrite Urine Negative Negative [facility] Leukocyte Esterase Urine Small (1+)(A) Negative [facility] RBC Urine 0-2 0 - 2 /HPF [facility] Urine WBC 0-5 0 - 5 /HPF [facility] Urine Squamous Epithelial Cell 0-2 0 - 2 /HPF [facility] Urine Bacteria None Seen None Seen [facility] Hyaline Casts, Urine 0-2 0 - 2 /LPF [facility] 10/28/2024 10:4 5 AM EST 10/28/2024 5:57 PM EST Generic External Data Provider LAB URINE ORDERAB LES Final Result Performing Organization Address [facility] de Phone Number [facility] [address] [place] [phone] * (ABNORMAL) Protein Creatinine Ratio, Urine (10/28/2024 10:45 AM EST) Creatinine, Urine 177.36 mg/dL [facility] Protein, Total, Random Urine 17(H) <12 mg/dL [facility] Protein/Creati nine Ratio, Ur 0.10 <0.2 [facility] Comment:The spot urine prote in:creatinine ratio may increase to 0.3during normal . 10/28/2024 10:4 5 AM EST 10/28/2024 5:57 PM EST Generic External Data Provider LAB URINE ORDERAB LES Final Result Performing Organization Address [facility] Phone Number [facility] [address] [place] [phone] * Phospholipase A2 Receptor (PLA2R) Antibody Panel (10/28/2024 10:35 AM EST) Phospholipase A2 Receptor (PLA2R) Ab, ANN MARIE <4 RU/mL [facility] Comment:Reference Range: <14 : NEGATIVE 14-19: BORDERLINE >19: POSITIVE Phospholipase A2 Receptor (PLA2R) Ab, IFA NEGATIVE NEGATIVE [facility] Comment:THIS TEST WAS PERFOR MED AT:[employer] [id number] [place] [address]OFNNYCARLOS EDUARDO FLOREZ MD,PHD,BELLA 10/28/2024 10:3 5 AM EST 10/28/2024 5:50 PM EST Generic External Data Provider LAB BLOOD ORDERAB LES Final Result Performing Organization Address [facility] Co de Phone Number [facility] [address] [place] [phone] * Proteinase-3 Antibody (10/28/2024 10:35 AM EST) Proteinase-3 Antibody <1.0 [facility] Comment:Value Interpretation ----- <1.0 No Antibody Detected > or = 1.0 Antibody DetectedAutoantibodies to proteinase-3 (PA-3) are accepted ascharacteristic for granulomatosis with polyangiitis(GPA, Karen's), and are detectable in 95% of thehistologically proven cases. The cytoplasmic IFApattern, (c-ANCA), is based largely on autoantibody toPR-3 which serves as the primary antigen.These autoantibodies are present in active disease.THIS TEST WAS PERFORMED AT:[facility] [employer] [place] [id number] JONES MD 10/28/2024 10:3 5 AM EST 10/28/2024 5:50 PM EST Generic External Data Provider LAB BLOOD ORDERAB LES Final Result Performing Organization Address [facility] de Phone Number [facility] [address] [place] [phone] * Myeloperoxidase Antibody (MPO) (10/28/2024 10:35 AM EST) Myeloperoxidase Antibody <1.0 [facility] Comment:Value Interpretation ----- <1.0 No Antibody Detected > or = 1.0 Antibody DetectedAutoantibodies to myeloperoxidase (MPO) are commonlyassociated with the following small-vesselvasculitides: microscopic polyangiitis,polyarteritis nodosa, Churg-Samantha syndrome,necrotizing and crescentic glomerulonephritis andoccasionally granulomatosis with polyangiitis(GPA, Karen's). The perinuclear IFA pattern,(p-ANCA) is based largely on autoantibody tomyeloperoxidase which serves as the primary antigen.These autoantibodies are present in active disease.THIS TEST WAS PERFORMED AT:[employer] [address] [address] ORALIA JONES MD 10/28/2024 10:3 5 AM EST 10/28/2024 5:50 PM EST Generic External Data Provider LAB BLOOD ORDERAB LES Final Result Performing Organization Address [facility] de Phone Number [facility] [address] [place] [phone] * Glomerular Basement Membrane Antibody (IgG) (10/28/2024 10:35 AM EST) Glomerular Basement Memebrane Antibody (IgG) <1.0 AI [facility] Comment:Value Interpretation ----- <1.0 No Antibody Detected > or = 1.0 Antibody DetectedTHIS TEST WAS PERFORMED AT:[employer] [address] [address]JDAQEORALIA JONES MD 10/28/2024 10:3 5 AM EST 10/28/2024 5:50 PM EST Generic External Data Provider LAB BLOOD ORDERAB LES Final Result Performing Organization Address [facility] de Phone Number [facility] [address] [place] [phone] * DNA (ds) Antibody (10/28/2024 10:35 AM EST) Anti DNA DS Antibody <1 IU/mL [facility] Comment:IU/mL Interpretation < or = 4 Negative 5-9 Indeterminate > or = 10 PositiveTHIS TEST WAS PERFORMED AT:[facility] [employer] [address] [address]HRRKBORALIA JONES MD 10/28/2024 10:3 5 AM EST 10/28/2024 5:50 PM EST Generic External Data Provider LAB BLOOD ORDERAB LES Final Result Performing Organization Address [facility] Co de Phone Number [facility] [address] [place] [phone] * SCL-70 Antibody (10/28/2024 10:35 AM EST) SCL-70 Antibody <1.0 NEG <1.0 NEG [facility] Comment:THIS TEST WAS PERFOR MED AT:[facility] [employer] [place] [address]QGSZDSHEREE JONES MD 10/28/2024 10:3 5 AM EST 10/28/2024 5:50 PM EST Generic External Data Provider LAB BLOOD ORDERAB LES Final Result Performing Organization Address [facility] de Phone Number [facility] [address] [place] [phone] * Sm and Sm/CIVIL CAD TECH Antibodies (10/28/2024 10:35 AM EST) SM Antibody <1.0 NEG <1.0 NEG [facility] SM/CIVIL CAD TECH Antibody <1.0 NEG <1.0 NEG [facility] Comment:THIS TEST WAS PERFOR MED AT:[employer] [address] [address]ZGNAYSHEREE JONES MD 10/28/2024 10:3 5 AM EST 10/28/2024 5:50 PM EST Generic External Data Provider LAB BLOOD ORDERAB LES Final Result Performing Organization Address [facility] Co de Phone Number [facility] [address] [place] [phone] * Sjogren's Antibodies (SS-A,SS-B) (10/28/2024 10:35 AM EST) Sjogren's Antibody (SS-A) <1.0 NEG <1.0 NEG [facility] Sjogren's Antibody (SS-B) <1.0 NEG <1.0 NEG [facility] Comment:THIS TEST WAS PERFOR MED AT:[employer] [address] [address]HUGHSELPIDIO JONES MD 10/28/2024 10:3 5 AM EST 10/28/2024 5:50 PM EST Generic External Data Provider LAB BLOOD ORDERAB LES Final Result Performing Organization Address [facility] de Phone Number [facility] [address] [place] [phone] * Immunofixation, Serum (10/28/2024 10:35 AM EST) Pathologist [facility] IMMUNOGLOBULIN G 1611 600 - 1640 mg/dL [facility] IMMUNOGLOBULIN A 90 47 - 310 mg/dL [facility] Immunoglobulin M 168 50 - 300 mg/dL [facility] Comment:THIS TEST WAS PERFOR MED AT:[employer] [address] [phone] JONES MD Immunofixation Result SEE NOTE [facility] Comment:Normal pattern. No m onoclonal proteins detected. 10/28/2024 10:3 5 AM EST 10/28/2024 5:50 PM EST Generic External Data Provider LAB BLOOD ORDERAB LES Final Result Performing Organization Address [facility] de Phone Number [facility] [address] [place] [phone] * KRISTI Screen,IFA, with Reflex to Titer and Pattern (10/28/2024 10:35 AM EST) Anti Nuclear Antibody Screen NEGATIVE NEGATIVE [facility] Comment:KRISTI IFA is a first [...] clinicallysuspected inflammatory myopathies.AC-0: NegativeInternational Consensus on KRISTI Patterns(https://doi.org/10.1515/cqvd-4455-8313)For additional information, please refer tohttp://education.[employer]/faq/SLY538(This link is being provided for informational/educational purposes only.)THIS TEST WAS PERFORMED AT:[employer] [address] [address]AZPAMSHEREE JONES MD KRISTI Titer TNP [facility] KRISTI Pattern [facility] KRISTI TITER 2 (REF LAB) [facility] KRISTI Pattern 2 [facility] KRISTI TITER 3 [facility] K[facility]I PATTERN 3 [facility] 10/28/2024 10:3 5 AM EST 10/28/2024 5:50 PM EST us Generic External Data Provider LAB BLOOD ORDERAB LES Final Result [facility] [address] [place] [phone] * Complement Component C4c (10/28/2024 10:35 AM EST) Complement C4 38 15 - 57 mg/dL [facility] Comment:THIS TEST WAS PERFOR MED AT:[facility] [place] [phone] JONES MD 10/28/2024 10:3 5 AM EST 10/28/2024 5:54 PM EST us Generic External Data Provider LAB BLOOD ORDERAB LES Final Result Performing Organization Address [facility] Co de Phone Number [facility] [address] [place] [phone] * Complement Component C3c (10/28/2024 10:35 AM EST) Complement C3 177 83 - 193 mg/dL [facility] Comment:THIS TEST WAS PERFOR MED AT:[facility] [place] [id number] JONES MD 10/28/2024 10:3 5 AM EST 10/28/2024 5:54 PM EST us Generic External Data Provider LAB BLOOD ORDERAB LES Final Result Performing Organization Address [facility] de Phone Number [facility] [address] [place] [phone] * Hepatitis B surface antigen, EIA (10/28/2024 10:35 AM EST) Hepatitis B Surface Ag Negative Negative [facility] 10/28/2024 10:3 5 AM EST 10/28/2024 5:56 PM EST us Generic External Data Provider LAB BLOOD ORDERAB LES Final Result Performing Organization Address [facility] Co de Phone Number [facility] [address] [place] [phone] * Hepatitis B Core Antibody, Total (10/28/2024 10:35 AM EST) Hepatitis B Core Antibody Nonreactive Nonreactive [facility] 10/28/2024 10:3 5 AM EST 10/28/2024 5:56 PM EST us Generic External Data Provider LAB BLOOD ORDERAB LES Final Result Performing Organization Address [place]/[facility] Co de Phone Number [facility] [address] [place] [phone] * Calcium (10/28/2024 10:35 AM EST) Calcium 9.6 8.4 - 10.2 mg/dL [facility] 10/28/2024 10:3 5 AM EST 10/28/2024 5:56 PM EST us Generic External Data Provider LAB BLOOD ORDERAB LES Final Result Performing Organization Address [facility]/ZIP Co de Phone Number [facility] [address] [place] [phone] * Creatinine, Serum (10/28/2024 10:35 AM EST) Creatinine, Serum 0.65 0.5 - 1.4 mg/dL [facility] Estimated Glomerular Filt Rate >60 [facility] Comment:Chronic Kidney Disea se: Estimated GFR < 60 mL/min/1.74c2Dszfug Kidney Disease: Estimated GFR < 15 mL/min/1.73m2 10/28/2024 10:3 5 AM EST 10/28/2024 5:56 PM EST us Generic External Data Provider LAB BLOOD ORDERAB LES Final Result Performing Organization Address [facility] Co de Phone Number [facility] [address] [place] [phone] * (ABNORMAL) BUN (Blood Urea Nitrogen) (10/28/2024 10:35 AM EST) Urea Nitrogen (BUN) 18(H) 9 - 16 mg/dL [facility] 10/28/2024 10:3 5 AM EST 10/28/2024 5:56 PM EST us Generic External Data Provider LAB BLOOD ORDERAB LES Final Result Performing Organization Address City/[facility]/ZIP Co de Phone Number [facility] [address] [place] [phone] * Electrolyte Panel (10/28/2024 10:35 AM EST) Sodium 140 135 - 145 mmol/L [facility] Potassium 3.8 3.3 - 5.1 mmol/L [facility] Chloride 105 96 - 108 mmol/L [facility] Carbon Dioxide 26 22 - 29 mmol/L [facility] Anion Gap 13 12 - 20 [facility] 10/28/2024 10:3 5 AM EST 10/28/2024 5:56 PM EST us Generic External Data Provider LAB BLOOD ORDERAB LES Final Result [facility] [address] [place] [phone] documented in this encounter Visit Diagnoses Not on filedocumented in this encounter Additional Health Concerns Assessment Noted Time PHQ-9 Depression Total Score: 2 09/23/19 25 9:22 AM EST documented as of this encounter Care Teams Car Seat Maker Relationship Specialty Start Date End Date Freya Dalton MD [address] [place] [address] PCP - General Family Medicine 09/15/13 documented as of this encounter
--- OUTSIDE RECORDS SUMMARY | 2024-11-09 17:26 | XMS_ITS | Encounter Summary ---
Author Organization [employer] Address [address] [place] [address] Care Team Providers Care Insurance Agent Name Role Phone Freya Dalton MD Primary Care Provider [phone] Encounter Details Date Type Department Care Team (Late st Contact Info) Description 09/11/2022 Orders Only [facility] [address] [place] [address] Freya Dalton MD [address] [place] [address] Hypertension, unspecified type Social History Tobacco Use [...] (04/17/2023 4:49 PM EDT) Color Urine Yellow [facility] Appearance Urine Clear [facility] PH 7.0 5.0 - 9.0 [facility] Glucose Urine UA Negative Negative mg/dL [facility] Urine Blood Negative Negative [facility] Specific Richey - Urine 1.010 1.005 - 1.025 [facility] Urine Protein Negative Neg-Trace mg/dL [facility] Urine Ketones Trace Negative mg/dL [facility] Nitrite Urine Negative Negative [facility] Leukocyte Esterase Urine Trace(A) Negative [facility] RBC Urine 0-2 0 - 2 /HPF [facility] Urine WBC 0-5 0 - 5 /HPF [facility] Urine Squamous Epithelial Cell 0-2 0 - 2 /HPF [facility] Urine Bacteria None Seen None Seen [facility] Hyaline Casts, Urine 0-2 0 - 2 /LPF [facility] 04/17/2023 4:49 PM EDT 04/17/2023 5:01 PM EDT Narrative [facility] - 04/17/2023 5:17 PM EDT [id number], Clean Catch us [facility] External Provider LAB URI NE ORDERABLES Final Result [facility] [address] [place] [address] [phone] * High Sensitivity Troponin I (04/17/2023 2:53 PM EDT) [facility] TROPONIN I HIGH SENSITIVITY <2.7 <3.5 - 17.0 ng/L [facility] Comment:The Wilkinson high sens itivity Troponin-I results should beused in conjunction with other diagnostic information suchas ECG, clinical observations and information, and patientsymptoms to aid in the diagnosis of [place]. 04/17/2023 2:53 PM EDT 04/17/2023 2:57 PM EDT [facility] External Provider LAB BLO OD ORDERABLES Final Result Performing Organization Address [facility] Co de Phone Number [facility] [address] [place] [phone] * Magnesium (04/17/2023 2:53 PM EDT) [facility] Magnesium 2.1 1.6 - 2.6 mg/dL [facility] 04/17/2023 2:53 PM EDT 04/17/2023 2:57 PM EDT [facility] External Data Provider LAB BLOOD ORDERAB LES Final Result Performing Organization Address [facility] de Phone Number [facility] [address] [place] [phone] * (ABNORMAL) Comprehensive Metabolic Panel (04/17/2023 2:53 PM EDT) [facility] Sodium 140 135 - 145 mmol/L [facility] Potassium 3.1(L) 3.3 - 5.1 mmol/L [facility] Chloride 103 96 - 108 mmol/L [facility] Carbon Dioxide 26 22 - 29 mmol/L [facility] Anion Gap 14 12 - 20 [facility] Urea Nitrogen (BUN) 15 9 - 16 mg/dL [facility] Creatinine, Serum 0.79 0.5 - 1.4 mg/dL [facility] Creatinine Clr Calc Pharmacy 95.7 [facility] Comment:Provided height and weight: 162.56 cm,92.079 kg.eGFR (calculated from the MDRD study equation) and eCrCl(calculated from the Cockcroft-Gault equation) are based ondifferent parameters and may not yield comparable results.If eCrCl result is absurd, please check patient'sheight/weight. Estimated Glomerular Filt Rate >60 [facility] Comment:NOTE: For -Am erican individuals, multiply the result by 1.210.Chronic Kidney Disease: Estimated GFR < 60 mL/min/1.46t0Pqmnvr Kidney Disease: Estimated GFR < 15 mL/min/1.73m2 Glucose 79 60 - 115 mg/dL [facility] Calcium 10.1 8.4 - 10.2 mg/dL [facility] Bilirubin, Total 0.5 0.0 - 1.0 mg/dL [facility] Aspartate Amino Transferase 13 5 - 31 U/L [facility] Alanine Aminotransferase 18 0 - 31 U/L [facility] Total Protein 7.6 6.5 - 8.0 g/dL [facility] Albumin Level 4.4 3.5 - 5.0 g/dL [facility] Alkaline Phosphatase 50 39 - 117 U/L [facility] 04/17/2023 2:53 PM EDT 04/17/2023 2:57 PM EDT us [facility] External Provider LAB BLO OD ORDERABLES Final Result [facility] [address] [place] [phone] * (ABNORMAL) CBC auto differential (04/17/2023 2:53 PM EDT) White Blood Count 11.3(H) 4.8 - 10.8 X10*3/uL [facility] Red Blood Count 5.26 4.20 - 5.50 X10*6/uL [facility] Hemoglobin 15.1 12.0 - 16.0 g/dl [facility] Hematocrit 44.7 37.0 - 47.0 % [facility] Mean Corpuscular Volume 85.0 80.0 - 98.0 fL [facility] Mean Corpuscular Hemoglobin 28.7 27.0 - 33.0 pg [facility] Mean Corpuscular HGB Conc 33.8 31.0 - 35.0 g/dl [facility] Red Cell Distribution Width 13.9 11.0 - 16.0 % [facility] Platelet Count 216 160 - 400 X10*3/uL [facility] Mean Platelet Volume 10.4 9.4 - 12.3 fL [facility] Neutrophils Percent Auto 53.2 45 - 73 % [facility] Imm Gran Pct Auto 0.9(H) 0.0 - 0.4 % [facility] Lymphocytes Percent Auto 38.5 20 - 40 % [facility] Monocytes Percent Auto 6.1 2 - 11 % [facility] Eosinophils Percent Auto 1.1 0 - 4 % [facility] Basophils Percent Auto 0.2 0 - 2 % [facility] NRBC Pct Auto 0.0 0.0 - 0.2 /100WBC [facility] Neutrophils Absolute Auto 6.0 2.0 - 8.3 x10*3/uL [facility] Imm Gran Abs Auto 0.10(H) 0.00 - 0.03 X10*3/uL [facility] Lymphocytes Absolute Auto 4.4 1.2 - 4.9 X10*3/uL [facility] Monocytes Absolute Auto 0.7 0.1 - 1.2 X10*3/uL [facility] Eosinophils Absolute Auto 0.1 0.0 - 0.4 X10*3/uL [facility] Basophils Absolute Auto 0.0 0.0 - 0.2 X10*3/uL [facility] NRBC Abs Auto 0.000 0.0 - 0.012 X10*3/uL [facility] 04/17/2023 2:53 PM EDT 04/17/2023 2:57 PM EDT us [facility] External Provider LAB BLO OD ORDERABLES Final Result [facility] [address] [place] [phone] documented in this encounter Visit Diagnoses Diagnosis Hypertension, unspecified type documented in this encounter Care Teams Insurance Agent Relationship Specialty Start Date End Date Freya Dalton MD [address] [place] [phone] PCP - General Family Medicine 09/15/13 documented as of this encounter
--- OUTSIDE RECORDS SUMMARY | 2024-11-09 17:26 | XMS_ITS | Encounter Summary ---
Author Organization [employer] Address [address] [place] [address] Care Team Providers Care Lung Splitter Name Role Phone Freya Dalton MD Primary Care Provider [phone] Encounter Details Date Type Department Care Team (Latest Contact Info) Description 08/08/2020 Abstract [facility] CONVERSIONS Dental, Provider, DDS Social History [...] on filedocumented in this encounter Care Teams Lung Splitter Relationship Specialty Start Date End Date Freya Dalton MD [address] [place] [phone] PCP - General Family Medicine 09/15/13 documented as of this encounter
== END 2024-11-09 14:32 | disposition home or self-care (01) ==
PROVIDERS: PCP Student in an Organized Health Care Education/Training Program
DX: M65.312 Trigger thumb, left thumb (principal)
CPT/HCPCS: 99024

== ENCOUNTER → 2024-11-09 13:46 | Outpatient (BNVA) | payer OTHER, SELFPAY | PROVIDERS: PCP Student in an Organized Health Care Education/Training Program | DX: Z47.89 Encounter for other orthopedic aftercare (principal); M65.312 Trigger thumb, left thumb; Z98.890 Other specified postprocedural states | CPT/HCPCS: 99212 ==

== ENCOUNTER 2024-12-03 13:06 | Outpatient (REF) | payer OTHER, SELFPAY ==
--- NOTE | ~2024-12-03 | US_ITS ---
CLINICAL HISTORY: I10 - Essential (primary) hypertension Renal duplex ultrasound. COMPARISON: None Technique: Real time duplex ultrasound imaging was performed by the loading machine operator. Multiple leasing representative static images were saved for review. FINDINGS: Aorta: Normal waveform, 133 cm/s. Aorta measures 1.3 cm, without aneurysmal dilatation identified. Right kidney: Normal size and echotexture, 11.1 cm length. Main renal artery peak systolic velocities: Proximal: 138 cm/s Mid: 30 cm/s Distal: 149 cm/s Segmental resistive index: 0.73 Left kidney: Normal size and echotexture, 13.4 cm length. Main renal artery peak systolic velocities: Proximal: 188 cm/s Mid: 206 cm/s Distal: 174 cm/s Segmental resistive index: 0.68 IMPRESSION: 1. Abnormal left renal artery velocities consistent with less than 60 percent stenosis. 2. Normal right renal artery duplex ultrasound. 3. Normal renal artery resistive indices bilaterally. This document has been electronically signed by: Zafar Beebe MD on 12/03/2024 17:15:34
== END 2024-12-03 13:07 | disposition home or self-care (01) ==
LOC: HO.US 13:06
PROVIDERS: PCP Student in an Organized Health Care Education/Training Program; Visit Provider Internal Medicine Nephrology
DX: I10 Essential (primary) hypertension (principal); N17.9 Acute kidney failure, unspecified; N20.0 Calculus of kidney
CPT/HCPCS: 93975

== ENCOUNTER → 2024-12-03 13:08 | Outpatient (BNV) | payer OTHER, SELFPAY | PROVIDERS: PCP Student in an Organized Health Care Education/Training Program; Visit Provider Radiology Diagnostic Radiology | DX: N20.0 Calculus of kidney (principal) | CPT/HCPCS: 93975 ==

== ENCOUNTER 2024-12-09 08:32 | Outpatient (RCR) | payer OTHER, SELFPAY ==
--- NOTE | 2024-11-18 13:20 | MHC.OT.EP ---
[address] [phone] Occupational Therapy Plan of Care Patient Name: Vani Burton Date of Evaluation: 11/18/24 Diagnosis: L trigger thumb release Pain Location: Pain Score: 2 Pain Scale Used: Numeric (0 - 10) Aggravating Factors: stiff Alleviating Factors: none reported Assessment: Pt is a R hand dominant female who had surgery on 10/27 to decrease triggering of her L thumb. She presents today w/ mild edema, a light pink scar (volar side of thumb), decreased ROM, and strength. Pt would benefit from skilled OT therapy to address these deficits and RPLOF Frequency and Duration: The patient will be seen 2x a week for 3 weeks Short Term Goals: SEE BELOW Line Servicer Goals: Pt will be compliant w/ her HEP Pt will be complaint w/ scar massage/ care Pt will increase ROM of her IP J to 60 Pt will have 55 of pain free thumb flexion Treatment Plan: Therapeutic Exercise Therapeutic Activity Home Exercise Program Splinting Neuro Re-ed Patient Education Desensitization/Sensory Re-ed Edema Control ADL Training Ultrasound NMES Iontophoresis Paraffin Fluidotherapy MHP Cold Packs Joint Mobilization Soft Tissue Mobilization Kinesiotaping Other (see comments) Electronically Signed By: Marline Gates OTR/L Please Sign and return to therapist. Thank you once again for your referral.
--- NOTE | 2024-12-09 08:55 | MHC.OT.DC ---
[address] [phone] F: [phone] Occupational Therapy Discharge Note Patient Name: Vani Perales Miroslavanabila Provider: Wander Moody Diagnosis: L trigger thumb release Date of Surgery: 10/27/24 Date of Evaluation: 11/18/24 Date of Discharge: Treatments to Date: 6 Cancellations to Date: No Shows to Date: Discharge Status: Achieved Goals Improved Function Discharge Summary: R ACCOUNT SERVICE REPRESENTATIVE : 70 LBS L ACCOUNT SERVICE REPRESENTATIVE :50 LBS PT HAS MET HER GOALS ; SHE IS AN AGREEMENT W/ D/CHARGE FROM THERAPY Pt was a pleasure to work with; Thank you for including me w/ her care! Electronically Signed By: Marline Gates OTR/L Reviewed/agree with student documentation: N/A Therapist: Please Sign and return to therapist, thank you for your referral.
== END 2024-12-09 08:56 | disposition home or self-care (01) ==
LOC: HO.OT 08:32
PROVIDERS: PCP Student in an Organized Health Care Education/Training Program
DX: M65.312 Trigger thumb, left thumb (principal)
CPT/HCPCS: 97035; 97110; 97140; 97165; 97535

== ENCOUNTER 2024-12-10 14:29 | Outpatient (AMB) | payer OTHER, SELFPAY ==
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
[2024-12-10 14:35] VITALS: BP 120/82; PULSE 94; O2SAT 97; BMI 39.0
--- OUTSIDE RECORDS SUMMARY | 2024-12-10 16:03 | XMS_ITS | Encounter Summary ---
Author Organization [employer] Address [address] [facility] [address] [place] [address] Care Team Providers Care Marine Engineer Cpvec Name Role Phone Freya Dalton MD Primary Care Provider [phone] Encounter Details Date Type Department Care Team ([facility] Contact Info) Description 02/10/2024 Orders Only [facility] [address] [place] [address] Provider, MD Sanjuana Social History Tobacco Use [...] documented as of this encounter Care Teams Marine Engineer Cpvec Relationship Specialty Start Date End Date Freya Dalton MD [address] [place] [address] PCP - General Family Medicine 09/15/13 documented as of this encounter
--- OUTSIDE RECORDS SUMMARY | 2024-12-10 16:03 | XMS_ITS | Clinical Summary ---
Author Organization [employer] Address [address] [facility] [address] [place] [address] Care Team Providers Care Corporate Driver Name Role Phone Freya Dalton MD Primary [...] Encounters Date Type Department Care Team Description 12/03/2024 Orders Only [facility] External Provider, [facility] 10/28/2024 Orders Only GENERIC EXTERNAL DATA DEPARTMENT Provider, Generic External Data 09/30/2024 Refill [facility] [address] [place] [address] Freya Dalton MD Primary hypertension 09/28/2024 Telephone [facility] [address] [place] [address] Padmini Weaver, RN Results 09/24/2024 Orders Only [facility] [address] [place] [address] Freya Dalton MD Primary hypertension (Primary Dx) 09/23/2024 9:00 AM EST Office Visit [facility] [address] [place] [address] Freya Dalton MD Primary hypertension (Primary Dx); Thumb tendonitis; Encounter for annual wellness visit 09/23/2024 Travel 09/20/2024 Telephone [facility] [address] [place] [address] Freya Dalton MD Chart Prep 09/16/2024 Patient Outreach [facility] [address] [place] [address] Freya Dalton MD Pre-visit Planning (SDOH was completed on 09/13/2024) 09/13/2024 Patient Outreach [facility] [address] [place] [address] Freya Dalton MD Care Coordination (CHW outreach for SDOH PT-1 and food needs-referral completed /) 09/13/2024 Patient Outreach [facility] [address] [place] [address] Freya Dalton MD Pre-visit Planning (SDOH Screening [...] (Patient Refused) Depression Screening 09/23/2025 09/23/2024, 09/23/19 SDOH Screening 09/23/2025 09/23/2024 Tobacco Screening 09/23/2025 [...] Procedure Name Priority Date/Time Associated Diagnosis Comments US RENAL DOPPLER Routine 12/03/2024 5:15 PM EDT URINALYSIS, COMPLETE Routine 10/28/2024 10:45 AM EST [...] Routine 10/28/2024 10:35 AM EST SM AND SM/ORGANISATION AND METHODS ANALYST ANTIBODIES Routine 10/28/2024 10:35 AM EST SJOGREN'S [...] Recently Relevant to Health Maintenance Results * US RENAL DOPPLER (12/03/2024 5:15 PM EDT) Anatomical Region Laterality Modality Abdomen Ultrasound 12/03/2024 5:15 PM EDT Narrative 12/03/2024 5:17 PM EDT ? [facility] ?[address] ?[place] [address] ? Ultrasound Report ? Signed ? Patient: Wnek,Vani M ?MR#: [id number] ?? 6 ? : 1975 ?Acct:[id number] ? Age/Sex: 49 / F ?ADM Date: 12/03/24 ? Loc: HO.US ? Attending Dr: Chuck Hendrix MD ? Ordering Physician: Chuck Hendrix MD ?? Date of Service: 12/03/24 ?? Procedure(s): US renal doppler ?? Accession Number(s): [id number] ? cc: Chuck Hendrix MD; Freya Dalton MD ? CLINICAL HISTORY: I10 - Essential (primary) hypertension ? Renal duplex ultrasound. ? COMPARISON: None ? Technique: Real time duplex ultrasound imaging was performed by the ?? advertising copy writer. Multiple passenger representative static images were saved for review. ? FINDINGS: ?? Aorta: Normal waveform, 133 cm/s. ?? Aorta measures 1.3 cm, without aneurysmal dilatation identified. ? Right kidney: ?? Normal size and echotexture, 11.1 cm length. ?? Main renal artery peak systolic velocities: ?? Proximal: 138 cm/s ?? Mid: 30 cm/s ?? Distal: 149 cm/s ?? Segmental resistive index: 0.73 ? Left kidney: ?? Normal size and echotexture, 13.4 cm length. ?? Main renal artery peak systolic velocities: ?? Proximal: 188 cm/s ?? Mid: 206 cm/s ?? Distal: 174 cm/s ?? Segmental resistive index: 0.68 ? IMPRESSION: ?? 1. Abnormal left renal artery velocities consistent with less than 60 ?? percent stenosis. ?? 2. Normal right renal artery duplex ultrasound. ?? 3. Normal renal artery resistive indices bilaterally. ? This document has been electronically signed by: Zafar Beebe MD on ?? 12/03/2024 17:15:34 ? Dictated By: ?Zafar Beebe MD ? Signed By: ?<Electronically signed by Zafar Beebe MD in OV> ?12/03/24 1716 ? DD/ ? TD/TT: 12/03/241714 ? Order Clerk: ? Procedure Note Donotuseinterpreter, Image - 12/03/2024 [place] [address] Ultrasound Report Signed Patient: Vani Burton MMR#: [id number] 6 : 1975Acct:[id number] Age/Sex: 49 / FADM Date: 12/03/24 Loc: HO.US Attending Dr: Chuck Hendrix MD Ordering Physician: Chuck Hendrix MD Date of Service: 12/03/24 Procedure(s): US renal doppler Accession Number(s): [id number] cc: Chuck Hendrix MD; Freya Dalton MD CLINICAL HISTORY: I10 - Essential (primary) hypertension Renal duplex ultrasound. COMPARISON: None Technique: Real time duplex ultrasound imaging was performed by the advertising copy writer. Multiple passenger representative static images were saved for review. FINDINGS: Aorta: Normal waveform, 133 cm/s. Aorta measures 1.3 cm, without aneurysmal dilatation identified. Right kidney: Normal size and echotexture, 11.1 cm length. Main renal artery peak systolic velocities: Proximal: 138 cm/s Mid: 30 cm/s Distal: 149 cm/s Segmental resistive index: 0.73 Left kidney: Normal size and echotexture, 13.4 cm length. Main renal artery peak systolic velocities: Proximal: 188 cm/s Mid: 206 cm/s Distal: 174 cm/s Segmental resistive index: 0.68 IMPRESSION: 1. Abnormal left renal artery velocities consistent with less than 60 percent stenosis. 2. Normal right renal artery duplex ultrasound. 3. Normal renal artery resistive indices bilaterally. This document has been electronically signed by: Zafar Beebe MD on 12/03/2024 17:15:34 Dictated By: Zafar Beebe MD Signed By: <Electronically signed by Zafar Beebe MD in OV> 12/03/241715 DD/ 14 TD/TT: 12/03/241714 Order Clerk: us [facility] External Provider IMG US PROCEDURES Final Result * (ABNORMAL) Protein Creatinine Ratio, Urine (10/28/2024 10:45 AM EST) Creatinine, Urine 177.36 mg/dL [facility] Protein, Total, Random Urine 17(H) <12 mg/dL [facility] Protein/Creati nine Ratio, Ur 0.10 <0.2 [facility] Comment:The spot urine prote in:creatinine ratio may increase to 0.3during normal . 10/28/2024 10:4 5 AM EST 10/28/2024 5:57 PM EST Generic External Data Provider LAB URINE ORDERAB LES Final Result [facility] [address] [place] [phone] * (ABNORMAL) Urinalysis Complete (10/28/2024 10:45 AM EST) Color Urine Dark Yellow [facility] Appearance Urine Turbid [facility] PH 6.0 5.0 - 9.0 [facility] Glucose Urine UA Negative Negative mg/dL [facility] Urine Blood Negative Negative [facility] Specific [place] - Urine >=1.030(H) 1.005 - 1.025 [facility] Urine Protein Trace Neg-Trace mg/dL [facility] Urine Ketones Trace Negative mg/dL [facility] Nitrite Urine Negative Negative [facility] Leukocyte Esterase Urine Small (1+)(A) Negative [facility] RBC Urine 0-2 0 - 2 /HPF [facility] Urine WBC 0-5 0 - 5 /HPF [facility] Urine Squamous Epithelial Cell 0-2 0 - 2 /HPF [facility] Urine Bacteria None Seen None Seen [facility] Hyaline Casts, Urine 0-2 0 - 2 /LPF [facility] 10/28/2024 10:4 5 AM EST 10/28/2024 5:57 PM EST Generic External Data Provider LAB URINE ORDERAB LES Final Result Performing Organization Address [facility] Co de Phone Number [facility] [address] [place] [phone] * Proteinase-3 Antibody (10/28/2024 10:35 AM EST) Proteinase-3 Antibody <1.0 [facility] Comment:Value Interpretation ----- <1.0 No Antibody Detected > or = 1.0 Antibody DetectedAutoantibodies to proteinase-3 (GA-3) are accepted ascharacteristic for granulomatosis with polyangiitis(GPA, Karen's), and are detectable in 95% of thehistologically proven cases. The cytoplasmic IFApattern, (c-ANCA), is based largely on autoantibody toPR-3 which serves as the primary antigen.These autoantibodies are present in active disease.THIS TEST WAS PERFORMED AT:[employer] [address] [id number] JONES MD 10/28/2024 10:3 5 AM EST 10/28/2024 5:50 PM EST Generic External Data Provider LAB BLOOD ORDERAB LES Final Result Performing Organization Address [facility] Co de Phone Number [facility] [address] [place] [phone] * Myeloperoxidase Antibody (MPO) (10/28/2024 10:35 AM EST) Myeloperoxidase Antibody <1.0 [facility] Comment:Value Interpretation ----- <1.0 No Antibody Detected > or = 1.0 Antibody DetectedAutoantibodies to myeloperoxidase (MPO) are commonlyassociated with the following small-vesselvasculitides: microscopic polyangiitis,polyarteritis nodosa, Churg-Samantha syndrome,necrotizing and crescentic glomerulonephritis andoccasionally granulomatosis with polyangiitis(GPA, Karen's). The perinuclear IFA pattern,(p-ANCA) is based largely on autoantibody tomyeloperoxidase which serves as the primary antigen.These autoantibodies are present in active disease.THIS TEST WAS PERFORMED AT:[employer] [address] [id number]IO JONES MD 10/28/2024 10:3 5 AM EST 10/28/2024 5:50 PM EST Generic External Data Provider LAB BLOOD ORDERAB LES Final Result Performing Organization Address [facility] Co de Phone Number [facility] [address] [place] [address] [phone] * Sm and Sm/ORGANISATION AND METHODS ANALYST Antibodies (10/28/2024 10:35 AM EST) SM Antibody <1.0 NEG <1.0 NEG [facility] SM/ORGANISATION AND METHODS ANALYST Antibody <1.0 NEG <1.0 NEG [facility] Comment:THIS TEST WAS PERFOR MED AT:[employer] [address] [phone] JONES MD 10/28/2024 10:3 5 AM EST 10/28/2024 5:50 PM EST Generic External Data Provider LAB BLOOD ORDERAB LES Final Result Performing Organization Address [facility] Co de Phone Number [facility] [address] [place] [phone] * Sjogren's Antibodies (SS-A,SS-B) (10/28/2024 10:35 AM EST) Sjogren's Antibody (SS-A) <1.0 NEG <1.0 NEG [facility] Sjogren's Antibody (SS-B) <1.0 NEG <1.0 NEG AI [facility] Comment:THIS TEST WAS PERFOR MED AT:[employer] [address] [phone] JONES MD 10/28/2024 10:3 5 AM EST 10/28/2024 5:50 PM EST Generic External Data Provider LAB BLOOD ORDERAB LES Final Result Performing Organization Address [facility] de Phone Number [facility] [address] [place] [phone] * Phospholipase A2 Receptor (PLA2R) Antibody Panel (10/28/2024 10:35 AM EST) Phospholipase A2 Receptor (PLA2R) Ab, ANN MARIE <4 RU/mL [facility] Comment:Reference Range: <14 : NEGATIVE 14-19: BORDERLINE >19: POSITIVE Phospholipase A2 Receptor (PLA2R) Ab, IFA NEGATIVE NEGATIVE [facility] Comment:THIS TEST WAS PERFOR MED AT:[employer] [facility]/[address] [id number] [place] [address]ZWYHFCARLOS EDUARDO FLOREZ MD,PHD,BELLA 10/28/2024 10:3 5 AM EST 10/28/2024 5:50 PM EST Generic External Data Provider LAB BLOOD ORDERAB LES Final Result Performing Organization Address [facility] de Phone Number [facility] [address] [place] [phone] * Creatinine, Serum (10/28/2024 10:35 AM EST) Creatinine, Serum 0.65 0.5 - 1.4 mg/dL [facility] Estimated Glomerular Filt Rate >60 [facility] Comment:Chronic Kidney Disea se: Estimated GFR < 60 mL/min/1.91i7Emroff Kidney Disease: Estimated GFR < 15 mL/min/1.73m2 10/28/2024 10:3 5 AM EST 10/28/2024 5:56 PM EST us Generic External Data Provider LAB BLOOD ORDERAB LES Final Result Performing Organization Address [facility]/ZIP Co de Phone Number [facility] [address] [place] [phone] * SCL-70 Antibody (10/28/2024 10:35 AM EST) SCL-70 Antibody <1.0 NEG <1.0 NEG [facility] Comment:THIS TEST WAS PERFOR MED AT:[employer] [place] [id number] JONES MD 10/28/2024 10:3 5 AM EST 10/28/2024 5:50 PM EST Generic External Data Provider LAB BLOOD ORDERAB LES Final Result Performing Organization Address [facility] Co de Phone Number [facility] [address] [place] [phone] * Glomerular Basement Membrane Antibody (IgG) (10/28/2024 10:35 AM EST) Glomerular Basement Memebrane Antibody (IgG) <1.0 [facility] Comment:Value Interpretation ----- <1.0 No Antibody Detected > or = 1.0 Antibody DetectedTHIS TEST WAS PERFORMED AT:[employer] [address] [address]RSWTVSHEREE JONES MD 10/28/2024 10:3 5 AM EST 10/28/2024 5:50 PM EST us Generic External Data Provider LAB BLOOD ORDERAB LES Final Result Performing Organization Address [facility] Co de Phone Number [facility] [address] [place] [phone] * DNA (ds) Antibody (10/28/2024 10:35 AM EST) Anti DNA DS Antibody <1 IU/mL [facility] Comment:IU/mL Interpretation < or = 4 Negative 5-9 Indeterminate > or = 10 PositiveTHIS TEST WAS PERFORMED AT:[employer] [address] [phone] JONES MD 10/28/2024 10:3 5 AM EST 10/28/2024 5:50 PM EST us Generic External Data Provider LAB BLOOD ORDERAB LES Final Result Performing Organization Address City/[facility]/ZIP Co de Phone Number [facility] [address] [place] [phone] * Hepatitis B surface antigen, EIA (10/28/2024 10:35 AM EST) Hepatitis B Surface Ag Negative Negative [facility] 10/28/2024 10:3 5 AM EST 10/28/2024 5:56 PM EST Generic External Data Provider LAB BLOOD ORDERAB LES Final Result Performing Organization Address [facility] Co de Phone Number [facility] [address] [place] [phone] * Hepatitis B Core Antibody, Total (10/28/2024 10:35 AM EST) Hepatitis B Core Antibody Nonreactive Nonreactive [facility] 10/28/2024 10:3 5 AM EST 10/28/2024 5:56 PM EST Generic External Data Provider LAB BLOOD ORDERAB LES Final Result Performing Organization Address [facility] Co de Phone Number [facility] [address] [place] [phone] * Immunofixation, Serum (10/28/2024 10:35 AM EST) IMMUNOGLOBULIN G 1611 600 - 1640 mg/dL [facility] IMMUNOGLOBULIN A 90 47 - 310 mg/dL [facility] Immunoglobulin M 168 50 - 300 mg/dL [facility] Comment:THIS TEST WAS PERFOR MED AT:[employer] [address] [phone] JONES MD Immunofixation Result SEE NOTE [facility] Comment:Normal pattern. No m onoclonal proteins detected. 10/28/2024 10:3 5 AM EST 10/28/2024 5:50 PM EST Generic External Data Provider LAB BLOOD ORDERAB LES Final Result Performing Organization Address [facility] de Phone Number [facility] [address] [place] [phone] * Complement Component C3c (10/28/2024 10:35 AM EST) Complement C3 177 83 - 193 mg/dL [facility] Comment:THIS TEST WAS PERFOR MED AT:[employer] [address] [address]FPPCJORALIA JONES MD 10/28/2024 10:3 5 AM EST 10/28/2024 5:54 PM EST Generic External Data Provider LAB BLOOD ORDERAB LES Final Result Performing Organization Address [facility] Co de Phone Number [facility] [address] [place] [phone] * Complement Component C4c (10/28/2024 10:35 AM EST) Complement C4 38 15 - 57 mg/dL [facility] Comment:THIS TEST WAS PERFOR MED AT:[employer] [address] [phone] JONES MD 10/28/2024 10:3 5 AM EST 10/28/2024 5:54 PM EST us Generic External Data Provider LAB BLOOD ORDERAB LES Final Result Performing Organization Address City/[facility]/ZIP Co de Phone Number [facility] [address] [place] [phone] * KRISTI Screen,IFA, with Reflex to Titer and Pattern (10/28/2024 10:35 AM EST) Anti Nuclear Antibody Screen NEGATIVE NEGATIVE [facility] Comment:KRISTI IFA is a first [...] clinicallysuspected inflammatory myopathies.AC-0: NegativeInternational Consensus on KRISTI Patterns(https://doi.org/10.1515/lqxe-6609-4615)For additional information, please refer tohttp://education.[employer].MYTRND/faq/YYS332(This link is being provided for informational/educational purposes only.)THIS TEST WAS PERFORMED AT:[facility] [place] [phone] JONES MD KRISTI Titer TNP [facility] KRISTI Pattern [facility] KRISTI TITER 2 (REF LAB) [facility] KRISTI Pattern 2 [facility] KRISTI TITER 3 [facility] KRISTI PATTERN 3 [facility] 10/28/2024 10:3 5 AM EST 10/28/2024 5:50 PM EST us Generic External Data Provider LAB BLOOD ORDERAB LES Final Result Performing Organization Address [facility]/ZIP Co de Phone Number [facility] [address] [place] [phone] * (ABNORMAL) BUN (Blood Urea Nitrogen) (10/28/2024 10:35 AM EST) Urea Nitrogen (BUN) 18(H) 9 - 16 mg/dL [facility] 10/28/2024 10:3 5 AM EST 10/28/2024 5:56 PM EST us Generic External Data Provider LAB BLOOD ORDERAB LES Final Result Performing Organization Address [facility]/ZIP Co de Phone Number [facility] [address] [place] [phone] * Calcium (10/28/2024 10:35 AM EST) Calcium 9.6 8.4 - 10.2 mg/dL [facility] 10/28/2024 10:3 5 AM EST 10/28/2024 5:56 PM EST us Generic External Data Provider LAB BLOOD ORDERAB LES Final Result Performing Organization Address [facility] Co de Phone Number [facility] [address] [place] [phone] * Electrolyte Panel (10/28/2024 10:35 AM EST) Sodium 140 135 - 145 mmol/L [facility] Potassium 3.8 3.3 - 5.1 mmol/L [facility] Chloride 105 96 - 108 mmol/L [facility] Carbon Dioxide 26 22 - 29 mmol/L [facility] Anion Gap 13 12 - 20 [facility] 10/28/2024 10:3 5 AM EST 10/28/2024 5:56 PM EST us Generic External Data Provider LAB BLOOD ORDERAB LES Final Result Performing Organization Address [facility]/ZIP Co de Phone Number [facility] [address] [place] [address] [phone] * (ABNORMAL) Hepatic Function Panel (09/23/2024 10:00 AM EST) Bilirubin, Total 0.4 0.0 - 1.0 mg/dL [facility] Bilirubin, Direct 0.1 0.0 - 0.5 mg/dL [facility] Aspartate Amino Transferase 29 5 - 31 U/L [facility] Alanine Aminotransferase 31 0 - 31 U/L [facility] Total Protein 6.3(L) 6.5 - 8.0 g/dL [facility] Albumin Level 3.7 3.5 - 5.0 g/dL [facility] Alkaline Phosphatase 48 39 - 117 U/L [facility] Blood Venous blood specimen / Unknown 09/23/2024 10:00 AM EST 09/23/2024 2:00 PM EST us Freya Dalton MD LAB BLOOD ORDERABLES Final Resul t [facility] [address] [place] [phone] * (ABNORMAL) Lipid Panel, Standard (09/23/2024 10:00 AM EST) Triglycerides 198(H) <150 mg/dL [facility] Comment:Desirable Triglyceri de: less than 150 mg/dLBorderline High Triglyceride 150-199 mg/dLHigh Triglyceride: 200-499 mg/dLVery High Triglyceride: greater than or equal to 5OO mg/dL Cholesterol 117 <200 mg/dL [facility] Comment:Desirable Cholestero l: less than 200 mg/dLBorderline High Cholesterol: 200-239 mg/dLHigh Cholesterol: greater than 239 mg/dL LDL Cholesterol Calculated 38 <100 mg/dL [facility] Comment:Desirable LDL: less than 100 mg/dLNear Optimal/Above Optimal LDL: 110- 129 mg/dLBorderline High LDL: 130-159 mg/dLHigh LDL: 160-189 mg/dLVery High LDL: greater than or equal to 190 mg/dL HDL Cholesterol 40(L) >40 mg/dL [facility] Comment:Desirable HDL: great er than 40 mg/dL Note: This HDL assay may give artificially low results in patients with liver disease. Blood Venous blood specimen / Unknown 09/23/2024 10:00 AM EST 09/23/2024 2:00 PM EST Freya Dalton MD LAB BLOOD ORDERABLES Final Resul t Performing Organization Address [facility] Co de Phone Number [facility] [address] [place] [phone] * (ABNORMAL) Basic Metabolic Panel (09/23/2024 10:00 AM EST) Sodium 140 135 - 145 mmol/L [facility] Potassium 4.3 3.3 - 5.1 mmol/L [facility] Chloride 111(H) 96 - 108 mmol/L [facility] Carbon Dioxide 23 22 - 29 mmol/L [facility] Anion Gap 10(L) 12 - 20 [facility] Urea Nitrogen (BUN) 46(H) 9 - 16 mg/dL [facility] Creatinine, Serum 1.38 0.5 - 1.4 mg/dL [facility] Estimated Glomerular Filt Rate 40 [facility] Comment:Chronic Kidney Disea se: Estimated GFR < 60 mL/min/1.46y9Lhhzjt Kidney Disease: Estimated GFR < 15 mL/min/1.73m2 Glucose 111 60 - 115 mg/dL [facility] Calcium 8.6 8.4 - 10.2 mg/dL [facility] Blood Venous blood specimen / Unknown 09/23/2024 10:00 AM EST 09/23/2024 2:00 PM EST Freya Dalton MD LAB BLOOD ORDERABLES Final Resul t Performing Organization Address [facility] Co de Phone Number [facility] [address] [place] [phone] * BI Mammogram Screening Bilateral (02/10/2024 2:52 PM EDT) Anatomical Region Laterality Modality Breast Bilateral Mammography Historical Provider MD ELY BI PROCEDURES Final R esult * HIV-1 RNA, Quantitative, Real-Time PCR with Reflex to Genotype (RTI, PI, Integrase) (02/18/2023 9:40 AM EDT) HIV 1 RNA, QN PCR NOT DETECTED copies/mL [email or web address], HIV 1 RNA, QN PCR NOT DETECTED Log copies/mL [facility], Comment: REFERENCE RANGE: NOT DETECTED copies/mL ?NOT DETECTED ??Log copies/mL This test was performed using Real-Time Polymerase Chain Reaction. Reportable range is 20 to 10,000,000 copies/mL (1.30-7.00 Log copies/mL). 02/18/2023 9:40 AM EDT 02/18/2023 9:41 AM EDT Freya Dalton MD LAB BLOOD ORDERABLES Final Resul t [facility] [id number] [address], [place] [address] [email or web address] [facility], [address] [place] [address] * Hepatitis C Antibody with Reflex to HCV, RNA, Quantitative, Real-Time PCR (02/18/2023 9:40 AM EDT) Hepatitis C Antibody NON-REACT ROCHELLE NON-REACT ROCHELLE [email or web address] [place] [employer] Index 0.10 <1.00 [email or web address] [place] [employer] Comment: HCV antibody was non-reactive. There is no laboratory evidence of HCV infection. In most cases, no further action is required. However, if recent HCV exposure is suspected, a test for HCV RNA (test code 45047) is suggested. For additional information please refer to http://education.Eventpig/faq/MGU94w0 (This link is being provided for informational/ educational purposes only.) Blood Venous blood specimen / Unknown 02/18/2023 9:40 AM EDT 02/18/2023 9:41 AM EDT Freya Dalton MD LAB BLOOD ORDERABLES Final Resul t [facility] [address], [place] [address] [email or web address] [facility] [address] [place] [address] * Colonoscopy (07/03/2018) Colonoscopy Normal Normal Historical Provider HEALTH MAINTENANCE Final Result from Last 3 Months or Most Recently Relevant to Health Maintenance Insurance [facility] Care Teams Corporate Driver Relationship Specialty Start Date End Date Freya Dalton MD [address] [place] [phone] PCP - General Family Medicine 09/15/13
--- OUTSIDE RECORDS SUMMARY | 2024-12-10 16:03 | XMS_ITS | Encounter Summary ---
Author Organization [employer] Address [address] [facility] 7t [place] [address] Care Team Providers Care Electronics Tech Name Role Phone Freya Dalton MD Primary Care Provider [phone] Encounter Details Date Type Department Care Team (Latest Contact Info) Description 08/08/2020 Abstract [facility] CONVERSIONS Dental, Provider, DDS Social History [...] on filedocumented in this encounter Care Teams Electronics Tech Relationship Specialty Start Date End Date Freya Dalton MD [address] [place] [phone] PCP - General Family Medicine 09/15/13 documented as of this encounter
--- OUTSIDE RECORDS SUMMARY | 2024-12-10 16:03 | XMS_ITS | Encounter Summary ---
Author Organization [employer] Address [address] [facility] [address] 7[address] [place] [address] Care Team Providers Care Binder Technician Name Role Phone Freya Dalton MD Primary Care Provider [phone] Reason for Visit * Reason Onset Date Comments Nurse Triage 08/04/2023 Encounter Details Date Type Department Care Team ([facility] Contact Info) Description 08/04/2023 Telephone [facility] MEDICINE [address] [place] [address] Freya Dalton MD [address] [place] [address] Nurse Triage Social History Tobacco Use Types [...] disposition, agrees to visit this week with [facility] team provider. Reviewed home care advise and reasons to call back. Protocol Used: Back Pain (Adult) Protocol-Based Disposition: See in Office or Video Visit within 3 Days Future Appointments Date Time Provider Department Center 08/06/2023 11:15 AM Vee Dudley MD [facility] 08/21/2023 11:[address] [facility] Video visit offer not recorded Positive [...] documented as of this encounter Care Teams Binder Technician Relationship Specialty Start Date End Date Freya Dalton MD [address] [place] [phone] PCP - General Family Medicine 09/15/13 documented as of this encounter
--- OUTSIDE RECORDS SUMMARY | 2024-12-10 16:03 | XMS_ITS | Encounter Summary ---
Author Organization [employer] Address [address] [facility] [place] [address] Care Team Providers Care Maintenance Specialist Name Role Phone Freya Dalton MD Primary Care Provider [phone] Reason for Visit * Reason Onset Date Comments FYI 07/23/2023 Encounter Details Date Type Department Care Team ([facility] Contact Info) Description 07/23/2023 Telephone [facility] MEDICINE [address] [place] [address] Freya Dalton MD [address] [place] [address] FYI Social History Tobacco Use Types Packs/Day [...] July 21, pt states is feeling fine, production underwriter ask pt if need a nurse to calk back production underwriter can do a triage but pt states feeling goodand just wanted to reported. Vocal Artist advise pt if feels bad in any moment can call back and office can assist. documented in this encounter Plan of Treatment Not on file documented as of this encounter Visit Diagnoses Not on filedocumented in this encounter Additional Health Concerns Assessment Noted Time PHQ-9 Depression Total Score: 0 02/15/20 23 11:02 AM EDT documented as of this encounter Care Teams Maintenance Specialist Relationship Specialty Start Date End Date Freya Dalton MD [address] [place] [phone] PCP - General Family Medicine 09/15/13 documented as of this encounter
--- OUTSIDE RECORDS SUMMARY | 2024-12-10 16:03 | XMS_ITS | Encounter Summary ---
Author Organization [employer] Address [address] [facility] [address] 7[address] [place] [address] Care Team Providers Care Body Former Name Role Phone Freya Dalton MD Primary Care Provider [phone] Encounter Details Date Type Department Care Team (Late st Contact Info) Description 09/11/[address] [facility] MEDICINE [address] [place] [address] Freya Dalton MD [address] [place] [address] Hypertension, unspecified type Social History Tobacco Use [...] (04/17/2023 4:49 PM EDT) Color Urine Yellow [facility] Appearance Urine Clear [facility] PH 7.0 5.0 - 9.0 [facility] Glucose Urine UA Negative Negative mg/dL [facility] Urine Blood Negative Negative [facility] Specific [place] - Urine 1.010 1.005 - 1.025 [facility] Urine Protein Negative Neg-Trace mg/dL [facility] Urine Ketones Trace Negative mg/dL [facility] Nitrite Urine Negative Negative [facility] Leukocyte Esterase Urine Trace(A) Negative [facility] RBC Urine 0-2 0 - 2 /HPF [facility] Urine WBC 0-5 0 - 5 /HPF [facility] Urine Squamous Epithelial Cell 0-2 0 - 2 /HPF [facility] Urine Bacteria None Seen None Seen [facility] Hyaline Casts, Urine 0-2 0 - 2 /LPF [facility] 04/17/2023 4:49 PM EDT 04/17/2023 5:01 PM EDT Narrative [facility] - 04/17/2023 5:17 PM EDT [id number], Clean Catch us [facility] External Provider LAB URI NE ORDERABLES Final Result [facility] [address] [place] [address] [phone] * High Sensitivity Troponin I (04/17/2023 2:53 PM EDT) [facility] TROPONIN I HIGH SENSITIVITY <2.7 <3.5 - 17.0 ng/L [facility] Comment:The Wilkinson high sens itivity Troponin-I results should beused in conjunction with other diagnostic information suchas ECG, clinical observations and information, and patientsymptoms to aid in the diagnosis of [place]. 04/17/2023 2:53 PM EDT 04/17/2023 2:57 PM EDT [facility] External Provider LAB BLO OD ORDERABLES Final Result Performing Organization Address [facility] Co de Phone Number [facility] [address] [place] [phone] * Magnesium (04/17/2023 2:53 PM EDT) [facility] Magnesium 2.1 1.6 - 2.6 mg/dL [facility] 04/17/2023 2:53 PM EDT 04/17/2023 2:57 PM EDT [facility] External Data Provider LAB BLOOD ORDERAB LES Final Result Performing Organization Address [facility] [[email or web address]] de Phone Number [facility] [address] [place] [phone] * (ABNORMAL) Comprehensive Metabolic Panel (04/17/2023 2:53 PM EDT) [facility] Sodium 140 135 - 145 mmol/L [facility] Potassium 3.1(L) 3.3 - 5.1 mmol/L [facility] Chloride 103 96 - 108 mmol/L [facility] Carbon Dioxide 26 22 - 29 mmol/L [facility] Anion Gap 14 12 - 20 [facility] Urea Nitrogen (BUN) 15 9 - 16 mg/dL [facility] Creatinine, Serum 0.79 0.5 - 1.4 mg/dL [facility] Creatinine Clr Calc Pharmacy 95.7 [facility] Comment:Provided height and weight: 162.56 cm,92.079 kg.eGFR (calculated from the MDRD study equation) and eCrCl(calculated from the Cockcroft-Gault equation) are based ondifferent parameters and may not yield comparable results.If eCrCl result is absurd, please check patient'sheight/weight. Estimated Glomerular Filt Rate >60 [facility] Comment:NOTE: For -Am erican individuals, multiply the result by 1.210.Chronic Kidney Disease: Estimated GFR < 60 mL/min/1.53y8Arpoky Kidney Disease: Estimated GFR < 15 mL/min/1.73m2 Glucose 79 60 - 115 mg/dL [facility] Calcium 10.1 8.4 - 10.2 mg/dL [facility] Bilirubin, Total 0.5 0.0 - 1.0 mg/dL [facility] Aspartate Amino Transferase 13 5 - 31 U/L [facility] Alanine Aminotransferase 18 0 - 31 U/L [facility] Total Protein 7.6 6.5 - 8.0 g/dL [facility] Albumin Level 4.4 3.5 - 5.0 g/dL [facility] Alkaline Phosphatase 50 39 - 117 U/L [facility] 04/17/2023 2:53 PM EDT 04/17/2023 2:57 PM EDT us [facility] External Provider LAB BLO OD ORDERABLES Final Result [facility] [address] [place] [phone] * (ABNORMAL) CBC auto differential (04/17/2023 2:53 PM EDT) White Blood Count 11.3(H) 4.8 - 10.8 X10*3/uL [facility] Red Blood Count 5.26 4.20 - 5.50 X10*6/uL [facility] Hemoglobin 15.1 12.0 - 16.0 g/dl [facility] Hematocrit 44.7 37.0 - 47.0 % [facility] Mean Corpuscular Volume 85.0 80.0 - 98.0 fL [facility] Mean Corpuscular Hemoglobin 28.7 27.0 - 33.0 pg [facility] Mean Corpuscular HGB Conc 33.8 31.0 - 35.0 g/dl [facility] Red Cell Distribution Width 13.9 11.0 - 16.0 % [facility] Platelet Count 216 160 - 400 X10*3/uL [facility] Mean Platelet Volume 10.4 9.4 - 12.3 fL [facility] Neutrophils Percent Auto 53.2 45 - 73 % [facility] Imm Gran Pct Auto 0.9(H) 0.0 - 0.4 % [facility] Lymphocytes Percent Auto 38.5 20 - 40 % [facility] Monocytes Percent Auto 6.1 2 - 11 % [facility] Eosinophils Percent Auto 1.1 0 - 4 % [facility] Basophils Percent Auto 0.2 0 - 2 % [facility] NRBC Pct Auto 0.0 0.0 - 0.2 /100WBC [facility] Neutrophils Absolute Auto 6.0 2.0 - 8.3 x10*3/uL [facility] Imm Gran Abs Auto 0.10(H) 0.00 - 0.03 X10*3/uL [facility] Lymphocytes Absolute Auto 4.4 1.2 - 4.9 X10*3/uL [facility] Monocytes Absolute Auto 0.7 0.1 - 1.2 X10*3/uL [facility] Eosinophils Absolute Auto 0.1 0.0 - 0.4 X10*3/uL [facility] Basophils Absolute Auto 0.0 0.0 - 0.2 X10*3/uL [facility] NRBC Abs Auto 0.000 0.0 - 0.012 X10*3/uL [facility] 04/17/2023 2:53 PM EDT 04/17/2023 2:57 PM EDT us [facility] External Provider LAB BLO OD ORDERABLES Final Result [facility] [address] [place] [address] [phone] documented in this encounter Visit Diagnoses Diagnosis Hypertension, unspecified type documented in this encounter Care Teams Body Former Relationship Specialty Start Date End Date Freya Dalton MD [address] [place] [phone] PCP - General Family Medicine 09/15/13 documented as of this encounter
--- OUTSIDE RECORDS SUMMARY | 2024-12-10 16:03 | XMS_ITS | Encounter Summary ---
Author Organization [employer] Address [address] [facility] 7t [place] [address] Care Team Providers Care Senior Vice President And Chief Information Officer Name Role Phone Freya Dalton MD Primary Care Provider [phone] Reason for Visit * Reason Onset Date Comments XRAY ORDER 03/24/2024 Encounter Details Date Type Department Care Team ([facility] Contact Info) Description 03/24/2024 Telephone [facility] MED & PEDS [address] [place] [address] Freya Dalton MD [address] [place] [address] XRAY ORDER Social History Tobacco Use Types [...] to work. * Telephone Encounter - Aaron Blnaco RN - 03/25/2024 10:43 AM EDT TC [...] documented as of this encounter Care Teams Senior Vice President And Chief Information Officer Relationship Specialty Start Date End Date Freya Dalton MD [address] [place] [phone] PCP - General Family Medicine 09/15/13 documented as of this encounter
== END 2024-12-10 14:49 | disposition home or self-care (01) ==
LOC: HO.HKA 14:29
PROVIDERS: PCP Student in an Organized Health Care Education/Training Program; Visit Provider Internal Medicine Nephrology
DX: I10 Essential (primary) hypertension (principal); N20.0 Calculus of kidney
CPT/HCPCS: 99214

== ENCOUNTER → 2024-12-10 14:29 | Outpatient (BNVA) | payer OTHER, SELFPAY | PROVIDERS: PCP Student in an Organized Health Care Education/Training Program; Visit Provider Internal Medicine Nephrology | DX: I10 Essential (primary) hypertension (principal); N20.0 Calculus of kidney | CPT/HCPCS: 99212 ==

== ENCOUNTER → 2025-01-06 10:55 | Outpatient (RCR) | payer OTHER, SELFPAY ==
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
== END | disposition home or self-care (01) ==
LOC: HO.PTCHIC 06-13 15:01
PROVIDERS: PCP Student in an Organized Health Care Education/Training Program; Visit Provider Physician Assistant
DX: S39.012D Strain of muscle, fascia and tendon of lower back, subsequent encounter (principal); S16.1XXD Strain of muscle, fascia and tendon at neck level, subsequent encounter; V89.2XXD Person injured in unspecified motor-vehicle accident, traffic, subsequent encounter
CPT/HCPCS: 97014; 97110; 97140; 97164

== ENCOUNTER 2025-03-18 14:07 | Outpatient (AMB) | payer OTHER, SELFPAY ==
--- OUTSIDE RECORDS SUMMARY | 2025-03-18 14:11 | XMS_ITS | Encounter Summary ---
Author Organization [employer] Address [address] [facility] 7t [place] [address] Care Team Providers Care Mud Analysis Well Logging Captain Name Role Phone Freya Dalton MD Primary Care Provider [phone] Reason for Visit * Reason Onset Date Comments FYI 07/23/2023 Encounter Details Date Type Department Care Team ([facility] Contact Info) Description 07/23/2023 Telephone [facility] MEDICINE [address] [place] [address] Freya Dalton MD [address] [place] [address] FYI Social History Tobacco Use Types Packs/Day [...] July 21, pt states is feeling fine, senior medical writer ask pt if need a nurse to calk back senior medical writer can do a triage but pt states feeling goodand just wanted to reported. Flexo Operator advise pt if feels bad in any moment can call back and office can assist. documented in this encounter Plan of Treatment Upcoming Encounters Date Type Department Care Team (Late st Contact Info) Description 03/24/2025 8:00 AM EDT Office Visit [facility] ADULT DENTAL [address] [place] [address] 03/31/2025 9:00 AM EDT Clinical Support [facility] CHC DIABETES/NTRN [address] [place] [address] Avril Tinajero, FIORELLA [address] [place] [address] 06/02/2025 9:00 AM EDT Office Visit [facility] OPTOMETRY [address] [place] [address] Susan Velarde, OD [address] [place] [address] documented as of this encounter Visit Diagnoses Not on filedocumented in this encounter Additional Health Concerns Assessment Noted Time PHQ-9 Depression Total Score: 0 02/15/20 23 11:02 AM EDT documented as of this encounter Care Teams Mud Analysis Well Logging Captain Relationship Specialty Start Date End Date Freya Dalton MD [address] [place] [phone] PCP - General Family Medicine 09/15/13 documented as of this encounter
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
[2025-03-18 14:18] VITALS: BP 110/80; PULSE 81; O2SAT 98; BMI 38.7
== END 2025-03-18 14:32 | disposition home or self-care (01) ==
LOC: HO.HKA 14:07
PROVIDERS: PCP Student in an Organized Health Care Education/Training Program; Visit Provider Internal Medicine Nephrology
DX: I10 Essential (primary) hypertension (principal)
CPT/HCPCS: 99214

== ENCOUNTER → 2025-03-18 14:07 | Outpatient (BNVA) | payer OTHER, SELFPAY | PROVIDERS: PCP Student in an Organized Health Care Education/Training Program; Visit Provider Internal Medicine Nephrology | DX: I10 Essential (primary) hypertension (principal) | CPT/HCPCS: 99212 ==

== ENCOUNTER 2025-04-14 15:20 | Outpatient (AMB) | payer OTHER, SELFPAY ==
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
== END 2025-04-14 16:01 | disposition home or self-care (01) ==
LOC: HO.HSM 15:20
PROVIDERS: PCP Student in an Organized Health Care Education/Training Program; Visit Provider Registered Nurse
DX: G43.909 Migraine, unspecified, not intractable, without status migrainosus (principal); G56.01 Carpal tunnel syndrome, right upper limb
CPT/HCPCS: 99214

== ENCOUNTER → 2025-04-14 15:20 | Outpatient (BNVA) | payer OTHER, SELFPAY | PROVIDERS: PCP Student in an Organized Health Care Education/Training Program; Visit Provider Registered Nurse | DX: M54.2 Cervicalgia (principal); G43.909 Migraine, unspecified, not intractable, without status migrainosus; G56.01 Carpal tunnel syndrome, right upper limb | CPT/HCPCS: 99212 ==

== ENCOUNTER → 2025-06-03 14:59 | Outpatient (REF) | payer OTHER, SELFPAY ==
--- NOTE | 2025-06-03 15:03 | CA_ITS ---
Transthoracic Echocardiogram Patient (Last, First, Middle): Vani Burton M Gender: Female Date of : 1975 Age: 49 Procedure Date: 06/03/2025 Procedure Type: Transthoracic Echocardiogram Location: OP Height: 162.56 cm Weight: 102.06 kg BSA: 2.06 m2 Heart Rate: bpm BP: 124 / 82 mmHg Aoc Director Combat Operations Officer: TO Referring MD: Vee Dudley MD Symptoms: HTN I1.0 SOB R06.02 Study Quality: Fair, contrast Conclusions: - Normal left ventricular size, thickness, systolic function, and wall motion. The visually estimated ejection fraction is between 55-60%. Diastolic function is normal for age. - Normal right ventricular cavity size and systolic function. - There is mild dilatation of the ascending aorta measuring 4.10 cm. Findings Procedure Information Contrast agent, definity, is being given per protocol without apparent complications. Left Ventricle Normal left ventricular size, thickness, systolic function, and wall motion. The visually estimated ejection fraction is between 55-60%. Diastolic function is normal for age. Right Ventricle Normal right ventricular cavity size and systolic function. Atria The left atrium is normal in size. The right atrium is normal in size. Aortic Valve Normal aortic valve structure and function. There is no aortic valve stenosis. There is no aortic valve regurgitation. Mitral Valve The mitral valve appears normal. There is no mitral valve regurgitation. There is no mitral valve stenosis. Pulmonic Valve The pulmonic valve is likely normal. Tricuspid Valve Normal tricuspid valve structure. There is no tricuspid valve regurgitation. Normal right atrial pressure. There is no evidence of pulmonary hypertension. Great Vessels There is mild dilatation of the ascending aorta measuring 4.10 cm. The visualized portions of the pulmonary artery and branches are normal. Venous The inferior vena cava is normal in size and collapses greater than 50% with inspiration. Pericardium/Pleural Prominent epicardial adipose tissue noted. There is no evidence of pericardial effusion. Prior Study Comparison Changes noted compared to prior study dated: 10/30/2016. Mild dilation of ascending aorta. Measurements 2D Linear Measurements IVSd: 1.08 0.6-0.9/0.6-1.0 cm LVIDd: 4.90 3.9-5.3/4.2-5.9 cm LVIDd Index: 2.38 2.4-3.2/2.2-3.1 cm/m2 LVIDs: 3.50 2.0-3.6 cm LVPWd: 0.83 0.7-1.1 cm LV Mass: 205.95 67-162/88-224 g LV Mass Index: 99.98 43-95/49-115 g/m2 LVOT Diam: 2.10 3.0+(-)1.3 cm 2D Systolic Function EF 4C: 60.80 >55% EF 2C: 61.30 >55% EF BiP: 61.40 >55% Mitral Valve MV Pk E: 0.93 MV PK A: 0.46 MV Decel Time: 218.00 E/A: 2.00 E'Lateral: 11.90 E'Medial: 8.16 E/E' Med: 11.40 E/E' Lat: 7.80 PHT: 64.00 MVA PHT: 3.44 Decel Mcintosh: 4.29 Aortic Valve AoV Pk Dilan: 1.52 AoV Mn Dilan: 1.07 AoV VTI: 0.34 AoV Pk Grad: 9.00 Aov Mn Grad: 5.00 CHARLENE Cont.VTI: 2.38 LVOT LVOT Pk Dilan: 1.17 LVOT Mn Dilan: 0.75 LVOT VTI: 0.24 LVOT Pk Grad: 5.00 LVOT Mn Grad: 3.00 LVOT Diam: 2.10 LVOT Area: 3.46 Diastolic Function MV Pk E: 0.93 MV Pk A: 0.46 E/A: 2.00 E'Medial: 8.16 E/E' Med: 11.40 E' Laterial: 11.90 E/E' Lat: 7.80 Right Ventricle TAPSE (mm): 23.30 TVS' Dilan: 12.40 Tricuspid Valve TR Pk Dilan: 1.93 TR Pk Grad: 15.00 RA Press: 3.00 RVSP: 18.00 Great Vessels Aorta Sinus of Valsalva: 3.13 2.0-3.5 cm Ao Asc: 4.10 2.1-3.4 cm Ao Arch: 2.40 Updated in Other Vendor System with Status of Final Umesh Martino MD electronically signed on 06/05/2025 7:48:40 PM with status of Final
== END ==
LOC: HO.CARD 14:59
PROVIDERS: PCP Student in an Organized Health Care Education/Training Program; Visit Provider Pediatrics
DX: I10 Essential (primary) hypertension (principal); R06.02 Shortness of breath
CPT/HCPCS: 93306; Q9957

== ENCOUNTER → 2025-06-03 15:03 | Outpatient (BNV) | payer OTHER, SELFPAY | PROVIDERS: PCP Student in an Organized Health Care Education/Training Program; Visit Provider Internal Medicine Cardiovascular Disease | DX: R06.02 Shortness of breath (principal); I10 Essential (primary) hypertension | CPT/HCPCS: 93306 ==

== ENCOUNTER 2025-06-28 09:26 | Outpatient (REF) | payer OTHER, SELFPAY ==
--- OUTSIDE RECORDS SUMMARY | 2025-06-28 08:45 | XMS_ITS | Encounter Summary ---
Author Organization [employer] Address [address] [place] [address] Care Team Providers Care Driver Guide Name Role Phone Freya Dalton MD Primary Care Provider [phone] Encounter Details Date Type Department Care Team ([facility] Contact Info) Description 06/28/2025 8:45 AM EDT Office Visit [facility] [address] [place], [place] [id number] Freya Dalton MD [address] [place] [address] Primary hypertension (Primary Dx); Prediabetes; Encounter for immunization Social History Tobacco Use Types Packs/Day Years [...] your housing situation today? I have remy sing 09/13/[address] you li [...] AM EDT documented as of this encounter Last Filed Vital Signs Vital Sign Reading Time Taken Comments Blood Pressure 125/79 06/28/2025 9:03 AM EDT Pulse 64 06/28/2025 9:03 AM EDT Temperature 36.2 C (97.2 F) 06/28/2025 9:03 AM EDT Respiratory Rate 18 06/28/2025 9:03 AM EDT Oxygen Saturation - - Inhaled Oxygen Concentration - - Weight 102 kg (224 lb) 06/28/2025 9:03 AM EDT Height 163.2 cm (5' 4.25 ) 06/28/2025 9:03 AM ED T Body Mass Index 38.15 06/28/2025 9:03 AM EDT documented in this encounter Progress Notes * Freya Dalton MD - 06/28/2025 8:45 AM EDT Subjective Patient ID: Vani Burton is a 50 y.o. female who presents for No chief complaint on file.. Hypertension This is a chronic problem. The current episode started more than 1 year ago. The problem is unchanged. The problem is controlled. Pertinent negatives include no chest pain, headaches, neck pain, palpitations or shortness of breath. Review of Systems Constitutional: Negative. Respiratory: Negative. Negative for shortness of breath. Cardiovascular: Negative for chest pain and palpitations. Gastrointestinal: Negative. Genitourinary: Negative. Musculoskeletal: Negative for neck pain. Neurological: Negative for headaches. Objective Physical Exam Constitutional: Appearance: Normal appearance. Cardiovascular: Rate and Rhythm: Normal rate and regular rhythm. Pulses: Normal pulses. Heart sounds: Normal heart sounds. Pulmonary: Effort: Pulmonary effort is normal. Abdominal: General: Abdomen is flat. Neurological: Mental Status: She is alert. Assessment/Plan Diagnoses and all orders for this visit: Primary hypertension Comments: Well controlled No changes in meds Maintain a low-sodium diet (less than 2 grams per day). Maintain a regular cardiovascular exercise program. Advised to maintain a low-fat, low-cholesterol diet. Counseled regarding importance of weight loss. Counseled re: potential co-morbidities including cardiovascular disease. Orders: - Basic Metabolic Panel; Future - Lipid Panel, Standard; Future - Hepatic Function Panel; Future - Hemoglobin A1c; Future Prediabetes Comments: Labs ordered today Advised Low sugar and Low carb diet. Counseled regarding self-monitoring of blood glucose. Counseled re: potential co-morbidities including cardiovascular disease. Counseled re: potential co-morbidities include neuropathy and retinopathy. Counseled re: potential co-morbidities include nephropathy Encounter for immunization - FLU VACCINE TRIVALENT [id number] (Fluarix) 19 yrs + documented in this encounter Plan of Treatment Upcoming Encounters Date Type Department Care Team (Late st Contact Info) Description 06/30/2025 9:00 AM EDT Clinical Support [facility] [address] [place] [address] Avril Tinajero, FIORELLA [address] [place] [address] Scheduled Orders Name Type Priority Associated Diagnoses Orde r Schedule Basic Metabolic Panel Lab Routine Primary hypertension Expected: 06/28/2025 (Approximate), Expires: 06/28/2026 Lipid Panel, Standard Lab Routine Primary hypertension Expected: 06/28/2025 (Approximate), Expires: 06/28/2026 Hepatic Function Panel Lab Routine Primary hypertension Expected: 06/28/2025 (Approximate), Expires: 06/28/2026 Hemoglobin A1c Lab Routine Primary hypertension Expected: 06/28/2025 (Approximate), Expires: 06/28/2026 documented as of this encounter Visit Diagnoses Diagnosis Primary hypertension- Primary Unspecified essential hypertension Prediabetes Other abnormal glucose Encounter for immunization documented in this encounter Additional Health Concerns Assessment Noted Time PHQ-9 Depression Total Score: 2 09/23/19 25 9:22 AM EST documented as of this encounter Care Teams Driver Guide Relationship Specialty Start Date End Date Freya Dalton MD [address] [place] [address] PCP - General Family Medicine 09/15/13 documented as of this encounter
--- OUTSIDE RECORDS SUMMARY | 2025-06-28 10:30 | XMS_ITS | Encounter Summary ---
Author Organization [employer] Address [address] [place] [address] 7 [place] [address] Care Team Providers Care Medical Reimbursement Specialist Name Role Phone Freya Dalton MD Primary Care Provider [phone] Encounter Details Date Type Department Care Team ([facility] Contact Info) Description 09/11/2022 Orders Only [facility] MEDICINE [address] [place], [place] [phone] Freya Dalton MD [address] [place], [place] [phone] Hypertension, unspecified type Social History Tobacco Use [...] as of this encounter Plan of Treatment Upcoming Encounters Date Type Department Care Team (Late Contact Info) Description 06/30/2025 9:00 AM EDT Clinical Support [facility] DIABETES/NTRN [address] [place], [place] [phone] Avril Tinajero, RD [address] [place] [address] documented as of this encounter Procedures Procedure [...] (04/17/2023 4:49 PM EDT) Color Urine Yellow [facility] Appearance Urine Clear [facility] PH 7.0 5.0 - 9.0 [facility] Glucose Urine UA Negative Negative mg/dL [facility] Urine Blood Negative Negative [facility] Specific Mercer - Urine 1.010 1.005 - 1.025 [facility] Urine Protein Negative Neg-Trace mg/dL [facility] Urine Ketones Trace Negative mg/dL [facility] Nitrite Urine Negative Negative [facility] Leukocyte Esterase Urine Trace(A) Negative [facility] RBC Urine 0-2 0 - 2 /HPF [facility] Urine WBC 0-5 0 - 5 /HPF [facility] Urine Squamous Epithelial Cell 0-2 0 - 2 /HPF [facility] Urine Bacteria None Seen None Seen [facility] Hyaline Casts, Urine 0-2 0 - 2 /LPF [facility] 04/17/2023 4:49 PM EDT 04/17/2023 5:01 PM EDT Narrative [facility] - 04/17/2023 5:17 PM EDT [id number], Clean Catch [facility] External Provider LAB URI NE ORDERABLES Final Result Performing Organization Address [facility] de Phone Number [facility] [address] [place] [phone] * High Sensitivity Troponin I (04/17/2023 2:53 PM EDT) [facility] TROPONIN I HIGH SENSITIVITY <2.7 <3.5 - 17.0 ng/L [facility] Comment:The Wilkinson high sens itivity Troponin-I results should beused in conjunction with other diagnostic information suchas ECG, clinical observations and information, and patientsymptoms to aid in the diagnosis of [place]. 04/17/2023 2:53 PM EDT 04/17/2023 2:57 PM EDT [facility] External Provider LAB BLO OD ORDERABLES Final Result Performing Organization Address [facility] Co de Phone Number [facility] [address] [place] [phone] * Magnesium (04/17/2023 2:53 PM EDT) [facility] Magnesium 2.1 1.6 - 2.6 mg/dL [facility] 04/17/2023 2:53 PM EDT 04/17/2023 2:57 PM EDT Generic External Data Provider LAB BLOOD ORDERAB LES Final Result Performing Organization Address [facility] Co de Phone Number [facility] [address] [place] [phone] * (ABNORMAL) Comprehensive Metabolic Panel (04/17/2023 2:53 PM EDT) [facility] Sodium 140 135 - 145 mmol/L [facility] Potassium 3.1(L) 3.3 - 5.1 mmol/L [facility] Chloride 103 96 - 108 mmol/L [facility] Carbon Dioxide 26 22 - 29 mmol/L [facility] Anion Gap 14 12 - 20 [facility] Urea Nitrogen (BUN) 15 9 - 16 mg/dL [facility] Creatinine, Serum 0.79 0.5 - 1.4 mg/dL [facility] Creatinine Clr Calc Pharmacy 95.7 [facility] Comment:Provided height and weight: 162.56 cm,92.079 kg.eGFR (calculated from the MDRD study equation) and eCrCl(calculated from the Cockcroft-Gault equation) are based ondifferent parameters and may not yield comparable results.If eCrCl result is absurd, please check patient'sheight/weight. Estimated Glomerular Filt Rate >60 [facility] Comment:NOTE: For -Am erican individuals, multiply the result by 1.210.Chronic Kidney Disease: Estimated GFR < 60 mL/min/[id number] Kidney Disease: Estimated GFR < 15 mL/min/1.73m2 Glucose 79 60 - 115 mg/dL [facility] Calcium 10.1 8.4 - 10.2 mg/dL [facility] Bilirubin, Total 0.5 0.0 - 1.0 mg/dL [facility] Aspartate Amino Transferase 13 5 - 31 U/L [facility] Alanine Aminotransferase 18 0 - 31 U/L [facility] Total Protein 7.6 6.5 - 8.0 g/dL [facility] Albumin Level 4.4 3.5 - 5.0 g/dL [facility] Alkaline Phosphatase 50 39 - 117 U/L [facility] 04/17/2023 2:53 PM EDT 04/17/2023 2:57 PM EDT [facility] External Provider LAB BLO OD ORDERABLES Final Result [facility] [address] [place] [phone] [phone] * (ABNORMAL) CBC auto differential (04/17/2023 2:53 PM EDT) White Blood Count 11.3(H) 4.8 - 10.8 X10*3/uL [facility] Red Blood Count 5.26 4.20 - 5.50 X10*6/uL [facility] Hemoglobin 15.1 12.0 - 16.0 g/dl [facility] Hematocrit 44.7 37.0 - 47.0 % [facility] Mean Corpuscular Volume 85.0 80.0 - 98.0 fL [facility] Mean Corpuscular Hemoglobin 28.7 27.0 - 33.0 pg [facility] Mean Corpuscular HGB Conc 33.8 31.0 - 35.0 g/dl [facility] Red Cell Distribution Width 13.9 11.0 - 16.0 % [facility] Platelet Count 216 160 - 400 X10*3/uL [facility] Mean Platelet Volume 10.4 9.4 - 12.3 fL [facility] Neutrophils Percent Auto 53.2 45 - 73 % [facility] Imm Gran Pct Auto 0.9(H) 0.0 - 0.4 % [facility] Lymphocytes Percent Auto 38.5 20 - 40 % [facility] Monocytes Percent Auto 6.1 2 - 11 % [facility] Eosinophils Percent Auto 1.1 0 - 4 % [facility] Basophils Percent Auto 0.2 0 - 2 % [facility] NRBC Pct Auto 0.0 0.0 - 0.2 /100WBC [facility] Neutrophils Absolute Auto 6.0 2.0 - 8.3 x10*3/uL [facility] Imm Gran Abs Auto 0.10(H) 0.00 - 0.03 X10*3/uL [facility] Lymphocytes Absolute Auto 4.4 1.2 - 4.9 X10*3/uL [facility] Monocytes Absolute Auto 0.7 0.1 - 1.2 X10*3/uL [facility] Eosinophils Absolute Auto 0.1 0.0 - 0.4 X10*3/uL [facility] Basophils Absolute Auto 0.0 0.0 - 0.2 X10*3/uL [facility] NRBC Abs Auto 0.000 0.0 - 0.012 X10*3/uL [facility] 04/17/2023 2:53 PM EDT 04/17/2023 2:57 PM EDT [facility] External Provider LAB BLO OD ORDERABLES Final Result [facility] [address] [place] [phone] [phone] documented in this encounter Visit Diagnoses Diagnosis Hypertension, unspecified type documented in this encounter Care Teams Medical Reimbursement Specialist Relationship Specialty Start Date End Date Freya Dalton MD [address] [place] [phone] PCP - General Family Medicine 09/15/13 documented as of this encounter
--- OUTSIDE RECORDS SUMMARY | 2025-06-28 10:30 | XMS_ITS | Encounter Summary ---
Author Organization [employer] Address [address] 7 [place] [address] Care Team Providers Care Redevelopment Specialist Name Role Phone Freya Dalton MD Primary Care Provider [phone] Reason for Visit * Reason Onset Date Comments FYI 07/23/2023 Encounter Details Date Type Department Care Team ([facility] Contact Info) Description 07/23/2023 Telephone [facility] MEDICINE [address] [place] [address] Freya Dalton MD [address] [place], [place] [phone] FYI Social History Tobacco Use Types Packs/Day [...] report pt test positive to [facility] on Friday, July 21, pt states is feeling fine, typewriter mechanic ask pt if need a nurse to calk back typewriter mechanic can do a triage but pt states feeling goodand just wanted to reported. Experience Planning Strategist advise pt if feels bad in any moment can call back and office can assist. documented in this encounter Plan of Treatment Upcoming Encounters Date Type Department Care Team (Late st Contact Info) Description 06/30/2025 9:00 AM EDT Clinical Support [facility] DIABETES/NTRN [address] [place] [address] Avril Tinajero, RD [address] [place] [address] documented as of this encounter Visit Diagnoses Not on filedocumented in this encounter Additional Health Concerns Assessment Noted Time PHQ-9 Depression Total Score: 0 02/15/20 23 11:02 AM EDT documented as of this encounter Care Teams Redevelopment Specialist Relationship Specialty Start Date End Date Freya Dalton MD [address] [place] [address] PCP - General Family Medicine 09/15/13 documented as of this encounter
--- OUTSIDE RECORDS SUMMARY | 2025-06-28 10:31 | XMS_ITS | Encounter Summary ---
Author Organization [employer] Address [address] [facility] 7 [place] [address] Care Team Providers Care Hall Porter Name Role Phone Freya Dalton MD Primary Care Provider [phone] Reason for Visit * Reason Onset Date Comments Chart Prep 06/27/2025 Encounter Details Date Type Department Care Team ([facility] Contact Info) Description 06/27/2025 Telephone [facility] MED & PEDS [address] [place] [address] Freya Dalton MD [address] [place] [address] Chart Prep Social History Tobacco Use Types Packs/Day Years [...] encounter Miscellaneous Notes * Telephone Encounter - Stephenie Musa [place] - 06/27/2025 9:51 AM EDT Chart Prep Labs: not applicable Images: done Referrals: complete Vaccines due: Covid, Flu, PCV20, Hep B, and Zoster Screenings: LMP and PISQ Overdue care gaps: SBIRT documented in this encounter Plan of Treatment Upcoming Encounters Date Type Department Care Team ([facility] st Contact Info) Description 06/30/2025 9:00 AM EDT Clinical Support [facility] DIABETES/NTRN [address] [place] [address] [place] [address] documented as of this encounter Visit Diagnoses Not on filedocumented in this encounter Additional Health Concerns Assessment Noted Time PHQ-9 Depression Total Score: 2 09/23/19 25 9:22 AM EST documented as of this encounter Care Teams Hall Porter Relationship Specialty Start Date End Date Freya Dalton MD [address] [place] [address] PCP - General Family Medicine 09/15/13 documented as of this encounter
--- OUTSIDE RECORDS SUMMARY | 2025-06-28 10:31 | XMS_ITS | Encounter Summary ---
Author Organization [employer] Address [address] [place] [address] 7 [place] [address] Care Team Providers Care Operating Engineer Name Role Phone Freya Dalton MD Primary Care Provider Reason for Visit * Reason Onset Date Comments XRAY ORDER 03/24/2024 Encounter Details Date Type Department Care Team ([facility] Contact Info) Description 03/24/2024 Telephone [facility] MED & PEDS [address] [place] [address] Freya Dalton MD [address] [place] [address] XRAY ORDER Social History Tobacco Use Types [...] skin test [place]. Pt is requesting a chest xray instead [...] 06/30/2025 9:00 AM EDT Clinical Support [facility] DIABETES/NTRN [address] [place], [place] [phone] Avril Tinajero RD [address] [place] [address] documented as of this encounter Visit Diagnoses Not on filedocumented in this encounter Additional Health Concerns Assessment Noted Time PHQ-9 Depression Total Score: 0 02/15/20 23 11:02 AM EDT documented as of this encounter Care Teams Operating Engineer Relationship Specialty Start Date End Date Freya Dalton MD [address] [facility] [place] [phone] PCP - General Family Medicine 09/15/13 documented as of this encounter
--- OUTSIDE RECORDS SUMMARY | 2025-06-28 10:31 | XMS_ITS | Encounter Summary ---
Author Organization [employer] Address [address] [place] [address] 7 [place] [address] Care Team Providers Care Senior Physical Therapist Name Role Phone Freya Dalton MD Primary Care Provider [phone] Encounter Details Date Type Department Care Team (Latest Contact Info) Description 08/08/2020 Abstract [facility] CONVERSIONS Dental, Provider, DDS Social History Tobacco [...] Description 06/30/2025 9:00 AM EDT Clinical Support [facility] CHC DIABETES/NTRN [address] [place] [address] [place] [address] documented as of this encounter Visit Diagnoses Not on filedocumented in this encounter Care Teams Senior Physical Therapist Relationship Specialty Start Date End Date Freya Dalton MD [address] [place] [address] PCP - General Family Medicine 09/15/13 documented as of this encounter
--- OUTSIDE RECORDS SUMMARY | 2025-06-28 10:31 | XMS_ITS | Encounter Summary ---
Author Organization [employer] Address [address] [place] [address] Care Team Providers Care Ice Cream Vendor Name Role Phone Freya Dalton MD Primary Care Provider [phone] Reason for Visit * Reason Onset Date Comments Nurse Triage 08/04/2023 Encounter Details Date Type Department Care Team ([facility] Contact Info) Description 08/04/2023 Telephone [facility] MEDICINE [address] [place] [address] Freya Dalton MD [address] [place], [place] [phone] Nurse Triage Social History Tobacco Use Types [...] past 12 months, has t he electric, [employer], oil or water [employer] threatened to shut off services in your [...] disposition, agrees to visit this week with [facility] team provider. Reviewed home care advise and reasons to call back. Protocol Used: Back Pain (Adult) Protocol-Based Disposition: See in Office or Video Visit within 3 Days Future Appointments Date Time Provider Department Center 08/06/2023 11:15 AM Vee Dudley MD [facility] 08/21/2023 11:[address] [facility] MARIELENA NUT [facility] Video visit offer not recorded Positive [...] 06/30/2025 9:00 AM EDT Clinical Support [facility] DIABETES/NTRN [address] [place] [address] Avril Tinajero, RD [address] [place] [address] documented as of this encounter Visit Diagnoses Not on filedocumented in this encounter Additional Health Concerns Assessment Noted Time PHQ-9 Depression Total Score: 0 02/15/20 11:02 AM EDT documented as of this encounter Care Teams Ice Cream Vendor Relationship Specialty Start Date End Date Freya Dalton MD [address] [place] [address] PCP - General Family Medicine 09/15/13 documented as of this encounter
--- OUTSIDE RECORDS SUMMARY | 2025-06-28 10:31 | XMS_ITS | Encounter Summary ---
Author Organization [employer] Address [address] [facility] 7t [place] [address] Care Team Providers Care Inspector Heating And Refrigeration Name Role Phone Freya Dalton MD Primary Care Provider [phone] Encounter Details Date Type Department Care Team (Latest Contact Info) Description 06/28/2025 Travel Social History Tobacco Use Types Packs/Day Years [...] Description 06/30/2025 9:00 AM EDT Clinical Support [facility] DIABETES/NTRN [address] [place] [address] [place] [address] documented as of this encounter Visit Diagnoses Not on filedocumented in this encounter Additional Health Concerns Assessment Noted Time PHQ-9 Depression Total Score: 2 09/23/19 25 9:22 AM EST documented as of this encounter Care Teams Inspector Heating And Refrigeration Relationship Specialty Start Date End Date Freya Dalton MD [address] [place] [address] PCP - General Family Medicine 09/15/13 documented as of this encounter
--- OUTSIDE RECORDS SUMMARY | 2025-06-28 10:31 | XMS_ITS | Clinical Summary ---
Author Organization [employer] Address [address] [place] [address] [address] [place] [address] Care Team Providers Care Clubhouse Manager Name Role Phone Freya Dalton MD Primary Care Provider [phone] Allergies Active Allergy Reactions Criticality Noted Date Comments Latex Rash Low 06/04/2021 Other reaction(s): rash Pollen Extract Abdominal Pain 10/27/2024 Medications verapamil SR (Calan SR) 120 MG [...] THE AFFECTED AREA(S) TWICE DAILY 023 Active EPINEPHrine (Epipen) 0.3 MG/0.3ML injection syringe INJECT INTRAMUSCULARLY DIRECTED ON PACKAGE 023 Active Diclofenac Sodium (Voltaren) 1 % gel Use topical BID 100 g 3 024 Active albuterol (ProAir HFA) 108 (90 Base) MCG/ACT inhaler Inhale 2 puffs in the morning, at noon, in the evening, and at bedtime. 8.5 g 3 Active Diclofenac Sodium (Voltaren) 1 % gel Use topical BID 100 g 3 Active Omeprazole 20 MG tablet delayed-release Take 1 tablet (20 mg) by mouth Once per day. 30 tablet 3 025 2025 Active hydroCHLOROthia zide (HYDRODiuril) 25 MG tabletIndicatio ns:Primary hypertension TAKE ONE TABLET EVERY DAY 90 tablet 1 025 Active cyclobenzaprine (Flexeril) 5 MG tablet Active Aimovig 140 MG/ML injection INJECT SUBCUTANEOUSLY EVERY FOUR WEEKS Active losartan (Cozaar) 25 MG tabletIndicatio ns:Primary hypertension TAKE ONE TABLET EVERY MORNING 90 tablet 3 Active Dexilant [address] capsule Take 1 capsule by mouth in the morning. 023 2024 Discontinued docusate sodium (Colace) 100 MG capsule Take 100 mg by mouth in the morning. 023 2024 Discontinued losartan (Cozaar) 25 MG tabletIndicatio ns:Primary hypertension TAKE ONE TABLET EVERY MORNING 90 tablet 3 024 2024 Discontinued meloxicam (Mobic) 7.5 MG tablet Take 1 tablet (7.5 mg) by mouth Once per day. 30 tablet 11 024 2024 Adbry 150 MG/ML solution prefilled syringe 025 2024 Discontinued Active Problems Problem Noted Date Diagnosed Date GERD (gastroesophageal reflux disease) Irritable bowel syndrome wit h both constipation and diarrhea 03/24/2025 Rectocele 03/24/2025 Hypertension 03/24/2025 Asthma 02/15/2025 Ankle pain 02/15/2025 Ankle fracture, lateral malleolus, closed 2024 ELOISE (acute kidney injury) 02/15/2025 Arthropathy of cervical facet joint 02/15/2025 Contusion of right ankle 02/15/2025 Fracture of distal end of fibula with routine he aling 02/15/2025 Hemorrhoids 02/15/2025 Oropharyngeal dysphagia 02/15/2025 Overview (02/15/2025): Resolved once we got good control the reflux so this was likely due to esophageal spasm from irritation at the GE junction. Then started again with a lack or ability to initiate the swallowing sequence of uncertain cause. Pulmonary nodules 02/15/2025 Renal calculus 02/15/2025 Spondylosis of cervical spine without myelopathy 02/15/2025 Trigger thumb of left hand 02/15/2025 Primary hypertension 12/02/2023 Hypokalemia 04/21/2023 Assessment & [...] Encounters Date Type Department Care Team Description 06/28/2025 8:45 AM EDT Office Visit [facility] MED & PEDS [address] [place] [address] Freya Dalton MD Primary hypertension (Primary Dx); Prediabetes; Encounter for immunization 06/28/2025 Travel 06/27/2025 Telephone [facility] MED [facility]ED[facility] [address] [place] [address] Freya Dalton MD Chart Prep 06/23/[address] [facility] MEDICINE [address] [place] [address] Freya Dalton MD Appointment 06/22/2025 Travel 06/22/2025 Telephone [facility] MED [facility] PEDS [address] [place] [address] Freya Dalton MD Chart Prep 06/15/2025 Patient Outreach [facility] MEDICINE [address] [place] [address] Freya Dalton MD Pre-visit Planning ([facility] screening completed on 09/23/24) 06/08/2025 Refill [facility] MED [facility] PEDS [address] [place] [address] Freya Dalton MD Primary hypertension 06/02/2025 9:00 AM EDT Office Visit [facility] OPTOMETRY [address] [place] [address] Susan Velarde, OD Presbyopia (Primary Dx); Dry eyes; Migraine with aura and with status migrainosus, not intractable 06/02/2025 Travel 05/26/2025 9:30 AM EDT Clinical Support [facility] DIABETES/NTRN [address] [place] [address] Class 1 obesity due to excess calories with serious comorbidity and body mass index (BMI) of 34.0 to 34.9 in adult (Primary Dx) 05/26/2025 Travel 05/03/[address] [facility] MEDICINE [address] [place] [address] Freya Dalton MD Medication Question 04/28/2025 9:00 AM EDT Clinical Support [facility] DIABETES/NTRN [address] [place] [address] Class 1 obesity with serious comorbidity and body mass index (BMI) of 34.0 to 34.9 in adult, unspecified obesity type (Primary Dx) 04/28/2025 Travel 04/18/2025 2:15 PM EDT Office Visit [facility] MED [facility] PEDS [address] [place] [address] Vee Dudley MD Primary hypertension (Primary Dx); SOB (shortness of breath) on exertion; Gastroesophageal reflux disease, unspecified whether esophagitis present 04/18/2025 Travel 04/18/2025 Telephone [facility] MED & PEDS [address] [place] [address] Freya Dalton MD Nurse Triage 04/05/2025 8:00 AM EDT Office Visit [facility] ADULT DENTAL [address] [place] [address] Maryellen Moody Dental caries (Primary Dx) 03/31/2025 9:00 AM EDT Clinical Support [facility] DIABETES/NTRN [address] [place] [address] Avril Tinajero, FIORELLA Class 1 obesity with serious comorbidity and body mass index (BMI) of 34.0 to 34.9 in adult, unspecified obesity type (Primary Dx) 03/31/2025 Travel from Last 3 Months Immunizations Immunization Administration Dates Next Due Influenza injectable quadriv alent IIV4 with preservative 07/16/2019,06/29/2018,05/30/2016 Influenza injectable quadriv alent preservative free 05/29/2023,07/02/2022,06/04/2021,2019,07/02/2017,06/23/2015 Influenza, IIV3, injectable 06/27/2014 Influenza, Split (incl. den fied surface antigen) 07/07/2013,06/09/2012 Influenza, seasonal, injecta ble, preservative free 06/28/2025 Moderna Covid-19 Vaccine 12+ 07/08/2021 Pfizer Covid-19 [...] 18 06/28/2025 9:03 AM EDT Oxygen Saturation 98% 01/27/2025 8:58 AM EDT Inhaled Oxygen Concentration - - Weight 102 kg (224 lb) 06/28/2025 9:03 AM EDT Height 163.2 cm (5' 4.25 ) 06/28/2025 9:03 AM ED T Body Mass Index 38.15 06/28/2025 9:03 AM EDT Plan of Treatment Upcoming Encounters Date Type Department Care Team (Late st Contact Info) Description 06/30/2025 9:00 AM EDT Clinical Support [facility] DIABETES/NTRN [address], [place] [id number] Avril Tinajero, FIORELLA [address] [place] [address] Health Maintenance Due Date Last Done Comments CT Colonography 1974 Diabetes: Hemoglobin A1C 1974 FIT DNA/Cologuard 1974 FIT 1974 FOBT 1974 Sigmoidoscopy 1974 Family Planning (PISQ) 1989 Hepatitis B Vaccines (1 of 3 - 19+ 3-dose series) 1993 Pneumococcal Vaccine: 50+ Years (1 of 2 - PCV) 1993 Zoster Vaccines (1 of 2) 2024 COVID-19 Vaccine ( - season) 2025 07/02/2022, 07/08/2021, 07/08/2021, Additional history exists Dental Oral Exam 09/04/2025 03/04/2025, 09/11/2020 Dental Prophylaxis 09/04/2025 03/04/2025, 0 12/06/2020, 08/08/2020 Depression Screening 09/23/2025 09/23/2024, 09/23/19 SDOH Screening 09/23/2025 09/23/2024 DTaP/Tdap/Td Vaccines (2 - Td or Tdap) 01/23/2026 01/24/2016 Mammogram 02/09/2026 02/10/2024 Dental X-Ray: Bitewings 03/05/2026 03/04/20 25, 02/15/2025, 08/08/2020, Additional history exists Disability Screening 06/22/2026 06/22/2025 Alcohol/Substance Use Screening 06/28/2026 06/28/2025 Tobacco Screening 06/28/2026 06/28/2025 Dental X-Ray: Full Mouth 03/05/2028 03/04/2025, 12/09/2019 Colonoscopy 07/03/2028 07/03/2018 Colorectal Cancer Screening 07/03/2028 Lipid Panel 09/23/2029 09/23/2024, 02/06, 02/18/2023, Additional history exists RSV Patients and Patients Aged 60 years or older (1 - 1-dose 75+ series) 2049 HIV Screening Completed 02/18/2023 Hepatitis C Screening Completed 02/18/2023 Influenza Vaccine Completed 06/28/2025, , 07/02/2022, Additional history exists HIB Vaccines Aged Out No longer eligi [...] patient's age to complete this topic Meningococcal B Vaccine Aged Out No l onger eligible based on patient's age to complete [...] Procedure Name Priority Date/Time Associated Diagnosis Comments POCT URINALYSIS DIPSTICK Routine 04/18/2025 3:14 PM EDT Primary hypertension CASE PRESENTATION, DETAILED AND EXTENSIVE TREATMENT PLANNING Routine 04/05/2025 8:00 AM EDT 28 DO RESIN-BASED COMPOSITE - 2 SURF, POSTERIOR Routine 04/05/2025 8:00 AM EDT Dental caries PROPHYLAXIS - ADULT Routine 03/04/2025 2 :30 PM EDT Dental calculus Dental plaque Gingival bleeding INTRAORAL - COMPLETE SERIES OF RADIOGRAPHIC IMAGES Routine 03/04/2025 2:30 PM EDT PERIODIC ORAL EVALUATION - ESTABLISHED PATIENT Routine 03/04/2025 2:30 PM EDT LIPID PANEL, STANDARD Routine 09/23/2024 10:00 AM [...] Recently Relevant to Health Maintenance Results * POCT Urinalysis (04/18/2025 3:14 PM EDT) Color, UA Yellow Clarity, UA Clear Glucose, UA Negative Bilirubin, UA Negative Ketones, UA Negative Spec Grav, UA 1.020 Blood, UA Negative Negative, None Detected pH, UA 6.5 Protein, UA Negative Urobilinogen, UA 0.2 Leukocytes, UA Trace Negative, Rare, Trace Nitrite, UA Negative Negative, None Detected Appearance, UA CLEAR Urine 04/18/2025 3:14 PM EDT Vee Dudley MD POINT OF CARE TEST ENTER/EDIT ORDERABLES Final Result * (ABNORMAL) Lipid Panel, Standard (09/23/2024 10:00 AM EST) Triglycerides 198(H) <150 mg/dL [facility] Comment:Desirable Triglyceri de: less than 150 mg/dLBorderline High Triglyceride 150-199 mg/dLHigh Triglyceride: 200-499 mg/dLVery High Triglyceride: greater than or equal to 5OO mg/dL Cholesterol 117 <200 mg/dL [facility] Comment:Desirable Cholestero l: less than 200 mg/dLBorderline High Cholesterol: 200-239 mg/dLHigh Cholesterol: greater than 239 mg/dL LDL Cholesterol Calculated 38 <100 mg/dL [facility] Comment:Desirable LDL: less than 100 mg/dLNear Optimal/Above Optimal LDL: 110- 129 mg/dLBorderline High LDL: 130-159 mg/dLHigh LDL: 160-189 mg/dLVery High LDL: greater than or equal to 190 mg/dL HDL Cholesterol 40(L) >40 mg/dL [facility] Comment:Desirable HDL: great er than 40 mg/dL Note: This HDL assay may give artificially low results in patients with liver disease. Blood Venous blood specimen / Unknown 09/23/2024 10:00 AM EST 09/23/2024 2:00 PM EST Freya Dalton MD LAB BLOOD ORDERABLES Final Resul t [facility] [address] [place] [address] [phone] * BI Mammogram Screening Bilateral (02/10/2024 2:52 PM EDT) Anatomical Region Laterality Modality Breast Bilateral Mammography Historical Provider MD ELY BI PROCEDURES Final R esult * HIV-1 RNA, Quantitative, Real-Time PCR with Reflex to Genotype (RTI, PI, Integrase) (02/18/2023 9:40 AM EDT) HIV 1 RNA, QN PCR NOT DETECTED copies/mL [employer], HIV 1 RNA, QN PCR NOT DETECTED Log copies/mL [facility], Comment: REFERENCE RANGE: NOT DETECTED copies/mL NOT DETECTED Log copies/mL This test was performed using Real-Time Polymerase Chain Reaction. Reportable range is 20 to 10,000,000 copies/mL (1.30-7.00 Log copies/mL). 02/18/2023 9:40 AM EDT 02/18/2023 9:41 AM EDT Freya Dalton MD LAB BLOOD ORDERABLES Final Resul t [address], [place] [address] [facility], [address] [place] [address] * Hepatitis C Antibody with Reflex to HCV, RNA, Quantitative, Real-Time PCR (02/18/2023 9:40 AM EDT) Hepatitis C Antibody NON-REACT ROCHELLE NON-REACT ROCHELLE [employer] [place] [employer] Index 0.10 <1.00 [employer] [facility] [place] [facility] Comment: HCV antibody was non-reactive. There is no laboratory evidence of HCV infection. In most cases, no further action is required. However, if recent HCV exposure is suspected, a test for HCV RNA (test code 59006) is suggested. For additional information please refer to http://education.[employer]/faq/OFJ50u5 (This link is being provided for informational/ educational purposes only.) Blood Venous blood specimen / Unknown 02/18/2023 9:40 AM EDT 02/18/2023 9:41 AM EDT Freya Dalton MD LAB BLOOD ORDERABLES Final Resul t [facility] [address], [place] [address] [employer] [facility] [address] [place] [address] * Colonoscopy (07/03/2018) [facility] Signature Colonoscopy Normal Normal Historical Provider HEALTH MAINTENANCE Final Result from Last 3 Months or Most Recently Relevant to Health Maintenance Insurance [facility] - HSN PARTIAL (MEDICAID) [facility] Care Teams Clubhouse Manager Relationship Specialty Start Date End Date Freya Dalton MD [address] [place] [id number] PCP - General Family Medicine 09/15/13
--- OUTSIDE RECORDS SUMMARY | 2025-06-28 10:31 | XMS_ITS | Encounter Summary ---
Author Organization [employer] Address [address] [place] [address] Care Team Providers Care Electric Relay Tester Name Role Phone Freya Dalton MD Primary Care Provider [phone] Encounter Details Date Type Department Care Team ([facility] Contact Info) Description 02/10/2024 Orders Only [facility] [address] [place] [address] Provider, MD Sanjuana Social History Tobacco Use [...] Description 06/30/2025 9:00 AM EDT Clinical Support [facility] DI[facility]ETES/NTRN [address] [place] [address] Avril Tinajero, FIORELLA [address] [place] [address] documented as of this encounter Procedures Procedure [...] documented as of this encounter Care Teams Electric Relay Tester Relationship Specialty Start Date End Date Freya Dalton MD [address] [place] [address] PCP - General Family Medicine 09/15/13 documented as of this encounter
--- OUTSIDE RECORDS SUMMARY | 2025-06-28 10:31 | XMS_ITS | Encounter Summary ---
Author Organization [employer] Address [address] [place] [address] Care Team Providers Care Fountain Vending Mechanic Name Role Phone Freya Dalton MD Primary Care Provider Reason for Visit * Reason Onset Date Comments Appointment 06/23/2025 Encounter Details Date Type Department Care Team ([facility] Contact Info) Description 06/23/2025 Telephone [facility] MEDICINE [address] [place] [address] Freya Dalton MD [address] [place], [place] [phone] Appointment Social History Tobacco Use Types Packs/Day Years [...] encounter Miscellaneous Notes * Telephone Encounter - Susi [place] - 06/23/2025 8:20 AM EDT Patient called pcp in late pt was called to reschedule appointment and no answer. Left vm to call to schedule appointment. documented in this encounter Plan of Treatment Upcoming Encounters Date Type Department Care Team (Late st Contact Info) Description 06/30/2025 9:00 AM EDT Clinical Support [facility] DIABETES/NTRN [address] [place] [address] [place] [address] documented as of this encounter Visit Diagnoses Not on filedocumented in this encounter Additional Health Concerns Assessment Noted Time PHQ-9 Depression Total Score: 2 09/23/19 25 9:22 AM EST documented as of this encounter Care Teams Fountain Vending Mechanic Relationship Specialty Start Date End Date Freya Dalton MD [address] [place] [address] PCP - General Family Medicine 09/15/13 documented as of this encounter
[2025-06-28 18:19] LABS: Alanine Aminotransferase 33 U/L (0-31); Albumin Level 4.9 g/dL (3.5-5.0); Alkaline Phosphatase 69 U/L (39-117); Anion Gap 13 (12-20); Aspartate Amino Transferase 28 U/L (5-31); Blood Urea Nitrogen 15 mg/dL (9-16); Calcium 9.8 mg/dL (8.4-10.2); Carbon Dioxide 27 mmol/L (22-29); Chloride 105 mmol/L (96-108); Cholesterol 213 mg/dL (<200); Estimated Glomerular Filt Rate > 60; HDL Cholesterol 64 mg/dL (>40); Potassium 3.6 mmol/L (3.3-5.1); Sodium 141 mmol/L (135-145); Total Protein 7.8 g/dL (6.5-8.0); Triglycerides 66 mg/dL (<150)
== END 2025-06-28 09:27 | disposition home or self-care (01) ==
LOC: HO.CHCLDS 09:26
PROVIDERS: Visit Provider Student in an Organized Health Care Education/Training Program
DX: I10 Essential (primary) hypertension (principal)
CPT/HCPCS: 36415; 80048; 80061; 80076; 83036